=== PATIENT | female | born 1990 | race Caucasian/White ===

== ENCOUNTER → 2017-05-25 14:34 | Outpatient (CLI) | payer BC, SELFPAY | PROVIDERS: Visit Provider Nurse Practitioner Women's Health | DX: R30.0 Dysuria (principal) | CPT/HCPCS: 87086; 87088 ==

== ENCOUNTER → 2017-06-13 11:30 | Outpatient (CLI) | payer BC, SELFPAY ==
[2017-06-13 12:44] LABS: Absolute Lymphocyte Count 1.26 X10^3/ul (0.83-4.51); Absolute Neutrophil Count 4.5 X10^3/uL (2.0-7.7); Basophil# 0.02 X10^3/uL; Basophil% 0.3 % (0-1); Eosinophil# 0.19 X10^3/uL; Eosinophils% 2.8 % (0-5); Hematocrit 40.3 % (37-47); Hemoglobin 13.3 g/dl (12.0-15.0); Lymphocyte # 1.26 X10^3/ul (4.0); Lymphocyte % 18.9 % (19-41); Mean Corpuscular Hgb 30.2 pg (27.0-32.0); Mean Corpuscular Volume 91.4 fL (81-99); Mean Platelet Vol. 10.1 fl (6.2-12.0); Monocyte% 10.5 % (0-10); Neutrophil # 4.51 X10^3/uL (2.7-7.7); Neutrophil % 67.5 % (47-70); Platelet Count 280 K/mm3 (150-450); RBC Distribution Width CV 11.9 % (11.6-14.6); RBC Distribution Width SD 40.3 fl (35.1-43.9); Red Blood Count 4.41 M/mm3 (4.2-5.4); White Blood Count 6.7 K/mm3 (4.4-11.0)
[2017-06-13 13:15] LABS: Thyroid Stim Hormone (TSH) 1.23 uIU/mL (0.358-3.74)
[2017-06-13 13:16] LABS: POSITIVE COUNT NO; POSITIVE DIFFERENTIAL NO; POSITIVE MORPHOLOGY NO
== END ==
PROVIDERS: Family Provider Family Medicine; PCP Family Medicine; Visit Provider Nurse Practitioner Women's Health
DX: R53.83 Other fatigue (principal)
CPT/HCPCS: 36415; 84439; 84443; 85025

== ENCOUNTER → 2018-05-05 08:31 | Outpatient (CLI) | payer OTHER, SELFPAY ==
[2018-05-04 17:43] VITALS: BMI 21.1
[2018-05-05 09:44] LABS: Anion Gap 7 (5-15); BUN 7 mg/dL (7-18); BUN/Creat Ratio 8.6 RATIO (10-20); Calcium,Total 8.8 mg/dL (8.5-10.1); Chloride 106 mmol/L (98-107); Cholesterol 165 mg/dL (200); Creatinine, Serum 0.81 mg/dL (0.55-1.02); EST Glomerular Filtration Rate 90 mL/min (>60); Est Glom Filt Rate - Afr Amer 109 mL/min (>60); Glucose 79 mg/dL (74-106); High Density Lipoprotein 74 mg/dL; Sodium Level 141 mmol/L (136-145); Triglycerides 105 mg/dL; Very Low Density Lipoprotein 21 mg/dL (5-40)
== END ==
PROVIDERS: Family Provider Internal Medicine; PCP Internal Medicine; Referring Provider Internal Medicine; Visit Provider Internal Medicine
DX: Z00.00 Encounter for general adult medical examination without abnormal findings (principal)
CPT/HCPCS: 36415; 80048; 80061

== ENCOUNTER → 2019-10-02 14:27 | Outpatient (CLI) | payer OTHER, SELFPAY ==
[2019-07-18 16:58] VITALS: BMI 20.7
[2019-10-02 14:46] LABS: Absolute Lymphocyte Count 1.73 X10^3/uL (0.83-4.51); Absolute Neutrophil Count 6.4 X10^3/uL (2.0-7.7); Basophil# 0.04 X10^3/uL; Basophil% 0.4 % (0-1); Eosinophil# 0.31 X10^3/uL; Eosinophils% 3.3 % (0-5); Hemoglobin 14.7 g/dL (12.0-15.0); Lymphocyte # 1.73 X10^3/ul (4.0); Lymphocyte % 18.6 % (19-41); Mean Corp Hgb Conc 34.2 g/dL (32-36); Mean Corpuscular Hgb 32.1 pg (27.0-32.0); Mean Corpuscular Volume 93.9 fL (81-99); Mean Platelet Vol. 9.5 fl (6.2-12.0); Monocyte# 0.82 X10^3/uL; Monocyte% 8.8 % (0-10); NRBC Flagged by Analyzer 0 % (0-5); Neutrophil # 6.37 X10^3/uL (2.7-7.7); Neutrophil % 68.6 % (47-70); Platelet Count 307 K/mm3 (150-450); RBC Distribution Width CV 11.2 % (11.6-14.6); RBC Distribution Width SD 38.5 fl (35.1-43.9); Red Blood Count 4.58 M/mm3 (4.2-5.4); White Blood Count 9.3 K/mm3 (4.4-11.0)
[2019-10-02 15:11] LABS: T4 Free Direct 1.08 ng/dL (0.76-1.46)
== END ==
PROVIDERS: PCP Internal Medicine; Referring Provider Obstetrics & Gynecology; Visit Provider Obstetrics & Gynecology
DX: R63.4 Abnormal weight loss (principal); R58 Hemorrhage, not elsewhere classified
CPT/HCPCS: 36415; 84439; 84443; 85025

== ENCOUNTER → 2020-04-29 08:01 | Outpatient (CLI) | payer OTHER, SELFPAY ==
[2019-11-07 17:03] VITALS: BMI 20.7
[2020-04-29 08:30] LABS: AST(SGOT) 10 U/L (15-37); Alanine Aminotransfer ALT/SGPT 16 U/L (13-56); Cholesterol 171 mg/dL (200); High Density Lipoprotein 73 mg/dL; Triglycerides 77 mg/dL; Very Low Density Lipoprotein 15 mg/dL (5-40)
== END ==
PROVIDERS: PCP Internal Medicine; Referring Provider Dermatology; Visit Provider Dermatology
DX: L70.0 Acne vulgaris (principal); Z79.899 Other long term (current) drug therapy
CPT/HCPCS: 36415; 80061; 84450; 84460

== ENCOUNTER 2020-05-15 07:24 | Emergency (ER) | payer OTHER, SELFPAY ==
[2020-05-08 09:01] VITALS: BMI 19.2
[2020-05-15 07:26] VITALS: BP 145/98; PULSE 95; RESP 22; TEMP 36.6; O2SAT 99; BMI 18.8
--- NOTE | 2020-05-15 07:32 | CT_ITS ---
STUDY: CT ABDOMEN AND PELVIS WITHOUT CONTRAST REASON FOR EXAM: Female, 29 years old. Pain. Right flank pain. RADIATION DOSAGE (If Supplied By Facility): CTDIvol = ( 6.08 ) mGy, DLP = ( 251.98 ) mGycm TECHNIQUE: Transaxial images were obtained from the dome of the diaphragm to the symphysis pubis without oral contrast, and without intravenous contrast. Sagittal and coronal images were reconstructed. Individualized dose optimization techniques were used for this CT. COMPARISON: None. FINDINGS: The visualized lung bases are unremarkable. The visualized portions of the heart are within normal limits. Catherine''s lobe of the liver. Normal gallbladder and extrahepatic biliary system. Normal spleen. Normal pancreas. Normal bilateral adrenal glands. Tiny calculus is seen in the posterior upper pole calyx of the right kidney as well as in the inferior pole calyx of the right kidney. Mild degree of the right hydronephrosis. Minimally dilated right ureter. I suspect a 2 mm calculus at the right ureterovesical junction. Normal left kidney. Normal visualized stomach. Normal small intestine. Normal colon. The appendix is visualized and appears normal. Normal abdominal aorta. Normal inferior vena cava. Normal retroperitoneum. Normal urinary bladder. There is a 1.9 cm cyst in the right ovary. Retroverted uterus. Normal abdominal wall. Normal osseous structures. CT/Abdomen/Pelvis without Cont IMPRESSION: Mild degree of right hydronephrosis and right hydroureter due to a 2 mm calculus at the right ureterovesical junction. 1.9 cm cyst in the right ovary. Retroverted uterus. Electronically Signed: Eulogio Christy MD at 8:54 EDT , Service support ,
--- NOTE | 2020-05-15 07:33 | ED.VIS.GEN ---
History of Present Illness Chief Complaint: Flank Pain Narrative: Patient is a 29-year-old female who presents with right flank pain. This began suddenly this morning. Pain is severe. History is limited as patient is in distress, screaming. She states she was fine when she went to sleep last night. When she woke this morning she had severe pain in her right flank with radiation to her right lower abdomen and back. No history of kidney stones. Last menstrual period 1 week ago. She denies vomiting or diarrhea. She does complain of nausea. No dysuria frequency or urgency. Past Medical History - Allergies and Home Meds Allergies/Adverse Reactions: Allergies No Known Allergies Allergy (Verified 05/15/20 07:27) Primary Care Physician: Manas Shaw MD [Primary Care Provider] - Past Medical History: None Surgical History: no surgical history Smoking Status: Never smoker Review of Systems All systems negative except as indicated General: Denies: Fever Eyes: Denies: Visual changes - bilaterally ENT: Denies: Bilateral ear pain Cardiovascular: Denies: Chest pain Respiratory: Denies: Dyspnea Gastrointestinal: Reports: Abdominal pain, Nausea. Denies: Vomiting, Diarrhea Genitourinary: Denies: Dysuria, Hematuria, Frequency Skin: Denies: Rash Neurological: Denies: Headache Allergy: Denies: Uticaria Physical Exam Vital Signs/Narrative: Vital Signs Temp Pulse Resp BP Pulse Ox 05/15/20 07:26 97.8 F 95 22 H 145/98 H 99 Inital Vital Signs reviewed: Yes General: Well nourished, Acute Distress - Patient lying on her side, screaming out Head: Normocephalic Eyes: EOMI ENT: Moist mucous membranes Neck: Supple Cardiovascular: Regular rate, Regular rhythm Respiratory: No distress, CTA bilaterally Abdomen: - - Patient refuses to allow abdominal examination Back: - - Patient cries out in pain when the right CVA was barely palpated Extremities: Nontender Skin: Normal color Neurological: Alert Diagnostic/Tx/Re-eval Impressions Abdomen/Pelvis CT 05/15/20 07:32 IMPRESSION: Mild degree of right hydronephrosis and right hydroureter due to a 2 mm calculus at the right ureterovesical junction. 1.9 cm cyst in the right ovary. Retroverted uterus. Electronically Signed: Eulogio Christy MD at 8:54 EDT , Service support , 05/15/20 07:32 Abdomen/Pelvis without Cont [CT] Stat Laboratory Results 05/15/20 05/15/20 05/15/20 07:35 07:35 07:35 WBC 6.5 RBC 4.66 Hgb 14.6 Hct 41.9 MCV 89.9 MCH 31.3 MCHC 34.8 RDW Std Deviation 37.6 RDW Coeff of John 11.5 L Plt Count 332 MPV 9.4 Immature Gran % (Auto) 0.300 Neut % (Auto) 41.2 L Lymph % (Auto) 38.0 Hardee % (Auto) 13.7 H Eos % (Auto) 6.2 H Baso % (Auto) 0.6 Absolute Neuts (auto) 2.7 Absolute Lymphs (auto) 2.47 Nucleated RBC % 0 Sodium 138 Potassium 2.9 L Chloride 106 Carbon Dioxide 19.0 L Anion Gap 13 BUN 7 Creatinine 1.08 H Estim Creat Clear Calc 61.09 Est GFR (MDRD) Af Amer 77 Est GFR (MDRD) Non-Af 64 BUN/Creatinine Ratio 6.5 L Glucose 128 H Calcium 9.2 Total Bilirubin 0.80 AST 10 L ALT 17 Alkaline Phosphatase 73 Total Protein 7.5 Albumin 4.2 Globulin 3.3 Albumin/Globulin Ratio 1.3 Serum , Qual NEGATIVE Urine Color Urine Clarity Urine pH Ur Specific Calmar Urine Protein Urine Glucose (UA) Urine Ketones Urine Occult Blood Urine Nitrite Urine Bilirubin Urine Urobilinogen Ur Leukocyte Esterase Urine RBC Urine WBC Ur Squamous Epith Cells Urine Bacteria Urine Mucus 05/15/20 09:04 WBC RBC Hgb Hct MCV MCH MCHC RDW Std Deviation RDW Coeff of John Plt Count MPV Immature Gran % (Auto) Neut % (Auto) Lymph % (Auto) Hardee % (Auto) Eos % (Auto) Baso % (Auto) Absolute Neuts (auto) Absolute Lymphs (auto) Nucleated RBC % Sodium Potassium Chloride Carbon Dioxide Anion Gap BUN Creatinine Estim Creat Clear Calc Est GFR (MDRD) Af Amer Est GFR (MDRD) Non-Af BUN/Creatinine Ratio Glucose Calcium Total Bilirubin AST ALT Alkaline Phosphatase Total Protein Albumin Globulin Albumin/Globulin Ratio Serum , Qual Urine Color Yellow Urine Clarity Sl. Cloudy Urine pH 6.5 Ur Specific Calmar 1.015 Urine Protein Negative Urine Glucose (UA) Normal Urine Ketones 50 H Urine Occult Blood 250 H Urine Nitrite Negative Urine Bilirubin Negative Urine Urobilinogen Normal Ur Leukocyte Esterase Negative Urine RBC 25-50 SEEN Urine WBC 0 SEEN Ur Squamous Epith Cells 0-5 SEEN Urine Bacteria 0 SEEN Urine Mucus 1+ - Medical Decision Making Patient was treated with IV fluids, Toradol, Zofran. Patient reported only mild improvement of pain. She was given IV morphine. On reevaluation she reports marked improvement and is resting comfortably. Labs are notable for hypokalemia with a potassium of 2.9. Urinalysis shows blood otherwise normal. CT does show 2 mm right UVJ calculus. I discussed expectant management with the patient. She was referred to urology for outpatient follow-up and discharged with prescriptions for Flomax and Percocet. She does understand return for new or worsening symptoms and was advised on signs and symptoms to monitor for. ED Disposition - Plan for ED Patient: Disposition: Home or Assisted Living Diagnosis: Hypokalemia, Ureteral calculus Instructions: ED Kidney Stone w/ Colic, ED Hypokalemia Prescriptions: Tamsulosin HCl [Flomax] 0.4 mg PO DAILY #7 capsule Prescription Printed Oxycodone HCl/Acetaminophen [Percocet 5/325] 1 tablet PO Q6H PRN PRN 3 Days #12 tab PRN Reason: Pain Prescription Printed Referrals: Manas Shaw MD [Primary Care Provider] -
[2020-05-15] MEDS: 0.9% Normal Saline 1,000 ML 1000 ML IV (07:40)
[2020-05-15] MEDS: Ketorolac 30 MG/ML Syringe IV (07:40)
[2020-05-15] MEDS: Ondansetron 4 MG/2 ML Vial IV (07:41)
[2020-05-15 07:43] LABS: Absolute Lymphocyte Count 2.47 X10^3/uL (0.83-4.51); Absolute Neutrophil Count 2.7 X10^3/uL (2.0-7.7); Basophil# 0.04 X10^3/uL; Basophil% 0.6 % (0-1); Eosinophils% 6.2 % (0-5); Hematocrit 41.9 % (37-47); Hemoglobin 14.6 g/dL (12.0-15.0); Lymphocyte # 2.47 X10^3/ul (4.0); Mean Corp Hgb Conc 34.8 g/dL (32-36); Mean Corpuscular Hgb 31.3 pg (27.0-32.0); Mean Corpuscular Volume 89.9 fL (81-99); Mean Platelet Vol. 9.4 fl (6.2-12.0); Monocyte# 0.89 X10^3/uL; Monocyte% 13.7 % (0-10); NRBC Flagged by Analyzer 0 % (0-5); Neutrophil # 2.68 X10^3/uL (2.7-7.7); Neutrophil % 41.2 % (47-70); Platelet Count 332 K/mm3 (150-450); RBC Distribution Width CV 11.5 % (11.6-14.6); RBC Distribution Width SD 37.6 fl (35.1-43.9); Red Blood Count 4.66 M/mm3 (4.2-5.4); White Blood Count 6.5 K/mm3 (4.4-11.0)
[2020-05-15 07:58] LABS: ALB/GLOB Ratio 1.3 RATIO (0.9-2.4); AST(SGOT) 10 U/L (15-37); Alanine Aminotransfer ALT/SGPT 17 U/L (13-56); Albumin, Serum 4.2 g/dL (3.2-5.0); Alkaline Phosphatase 73 U/L (45-117); Anion Gap 13 (5-15); BUN 7 mg/dL (7-18); BUN/Creat Ratio 6.5 RATIO (10-20); Calcium,Total 9.2 mg/dL (8.5-10.1); Chloride 106 mmol/L (98-107); Creatinine, Serum 1.08 mg/dL (0.55-1.02); EST Glomerular Filtration Rate 64 mL/min (>60); Est Glom Filt Rate - Afr Amer 77 mL/min (>60); Estimated Creatinine Clearance 61.09 ml/min; Globulin 3.3 g/dL (2.2-4.2); Glucose 128 mg/dL (74-106); Potassium 2.9 mmol/L (3.5-5.1); Protein, Total 7.5 g/dL (6.4-8.2); Sodium Level 138 mmol/L (136-145)
[2020-05-15 08:03] LABS: Internal QC Validated? YES +Cl - CLEAR BKGD; Pregnancy, Serum, hCG Quali. NEGATIVE Negative
[2020-05-15] MEDS: Morphine 4 MG/ML Syringe IV (08:49)
[2020-05-15] MEDS: Potassium Chloride 10mEq/100mL 10 MEQ/100 ML IV.SOLN. 100 MEQ IV BOLUS ×4 (09:01→11:07)
[2020-05-15 09:11] LABS: Bacteria 0 SEEN /hpf (None Seen); White Blood Cells 0 SEEN /hpf (0-5)
[2020-05-15 09:15] LABS: Color, Urine Yellow (Yellow); Glucose, Dipstick Normal (Normal); Ketone-Dipstick 50 mg/dl (Negative); Leukocyte Esterase-Dipstick Negative /ul (Negative); Nitrite-Dipstick Negative (Negative); Occult Blood-Urine 250 /ul (Negative); Protein-Dipstick Negative (Negative); Specific Gravity, Urine 1.015 (1.002-1.030); Urine Bilirubin Dipstick Negative (Negative); Urine Clarity Sl. Cloudy (Clear); Urine Urobilinogen Normal (Normal); Urine pH 6.5 (5.0 - 8.0)
[2020-05-15 09:22] LABS: Mucous, Urine 1+ /hpf (<or=2+); Red Blood Cells-Urine 25-50 SEEN /hpf (0-5); Squamous Epithelial Cells - UA 0-5 SEEN /hpf (5-10)
[2020-05-15 10:09] VITALS: BP 129/84; PULSE 71; RESP 15; TEMP 36.4; O2SAT 99
[2020-05-15 12:00] VITALS: BP 123/69; PULSE 71; RESP 15; O2SAT 98
== END 2020-05-15 12:03 | disposition home or self-care (01) ==
PROVIDERS: Emergency Provider Emergency Medicine; PCP Internal Medicine
DX: N13.2 Hydronephrosis with renal and ureteral calculous obstruction (principal); E87.6 Hypokalemia; N83.201 Unspecified ovarian cyst, right side; N85.4 Malposition of uterus
CPT/HCPCS: 74176; 80053; 81001; 84703; 85025; 96361; 96374; 96375; 99283; J7030; A4216; J2405

== ENCOUNTER → 2020-05-20 13:32 | Outpatient (CLI) | payer OTHER, SELFPAY ==
[2020-05-20 13:04] VITALS: BMI 19.0
[2020-05-20 13:33] LABS: Bacteria 0 SEEN /hpf (None Seen); Mucous, Urine 0 SEEN /hpf (<or=2+); Red Blood Cells-Urine 0 SEEN /hpf (0-5); Squamous Epithelial Cells - UA 0 SEEN /hpf (5-10); White Blood Cells 0 SEEN /hpf (0-5)
[2020-05-20 15:37] LABS: Color, Urine Yellow (Yellow); Glucose, Dipstick Normal (Normal); Ketone-Dipstick Negative (Negative); Leukocyte Esterase-Dipstick Negative /ul (Negative); Nitrite-Dipstick Negative (Negative); Occult Blood-Urine Negative /ul (Negative); Protein-Dipstick Negative (Negative); Urine Bilirubin Dipstick Negative (Negative); Urine Clarity Clear (Clear); Urine Urobilinogen Normal (Normal)
[2020-05-20 15:42] LABS: Anion Gap 4 (5-15); BUN 10 mg/dL (7-18); BUN/Creat Ratio 12.9 RATIO (10-20); Calcium,Total 9.6 mg/dL (8.5-10.1); Chloride 108 mmol/L (98-107); Creatinine, Serum 0.78 mg/dL (0.55-1.02); EST Glomerular Filtration Rate 94 mL/min (>60); Est Glom Filt Rate - Afr Amer 113 mL/min (>60); Glucose 67 mg/dL (74-106); Potassium 4.6 mmol/L (3.5-5.1); Sodium Level 139 mmol/L (136-145)
== END ==
PROVIDERS: PCP Internal Medicine; Referring Provider Nurse Practitioner Family; Visit Provider Nurse Practitioner Family
DX: N20.0 Calculus of kidney (principal); E87.6 Hypokalemia
CPT/HCPCS: 36415; 80048; 81001

== ENCOUNTER → 2020-06-13 12:58 | Outpatient (CLI) | payer OTHER, SELFPAY ==
[2020-06-04 13:14] VITALS: BMI 18.8
[2020-06-13 13:28] LABS: Anion Gap 2 (5-15); BUN 11 mg/dL (7-18); BUN/Creat Ratio 15.6 RATIO (10-20); Calcium,Total 9.1 mg/dL (8.5-10.1); Chloride 106 mmol/L (98-107); EST Glomerular Filtration Rate 105 mL/min (>60); Est Glom Filt Rate - Afr Amer 127 mL/min (>60); Glucose 69 mg/dL (74-106); Sodium Level 137 mmol/L (136-145)
[2020-06-13 20:46] LABS: Magnesium 2.1 mg/dL (1.6-2.6)
== END ==
PROVIDERS: PCP Internal Medicine; Referring Provider Nurse Practitioner Family; Visit Provider Nurse Practitioner Family
DX: R42 Dizziness and giddiness (principal); E87.6 Hypokalemia
CPT/HCPCS: 36415; 80048; 83735

== ENCOUNTER → 2020-09-11 08:07 | Outpatient (CLI) | payer OTHER, SELFPAY ==
[2020-08-07 17:07] VITALS: BMI 18.8
[2020-09-11 08:43] LABS: AST(SGOT) 16 U/L (15-37); Alanine Aminotransfer ALT/SGPT 21 U/L (13-56); Cholesterol 177 mg/dL (200); High Density Lipoprotein 66 mg/dL; Triglycerides 95 mg/dL; Very Low Density Lipoprotein 19 mg/dL (5-40)
== END ==
PROVIDERS: PCP Internal Medicine; Referring Provider Dermatology; Visit Provider Dermatology
DX: L70.0 Acne vulgaris (principal); L23.3 Allergic contact dermatitis due to drugs in contact with skin; Z79.899 Other long term (current) drug therapy
CPT/HCPCS: 36415; 80061; 84450; 84460

== ENCOUNTER → 2020-10-01 16:31 | Outpatient (CLI) | payer OTHER, SELFPAY ==
[2020-10-09 08:58] LABS: HPV APTIMA, High Risk Positive (Negative)
[2020-10-09 08:59] LABS: HPV Reflexed? YES, CHARGE PATIENT
== END ==
PROVIDERS: PCP Internal Medicine; Referring Provider Nurse Practitioner Women's Health; Visit Provider Nurse Practitioner Women's Health
DX: Z12.4 Encounter for screening for malignant neoplasm of cervix (principal)
CPT/HCPCS: 87624; 88175; G0145

== ENCOUNTER → 2020-12-15 | Outpatient (CLI) | payer OTHER, SELFPAY | END | disposition home or self-care (01) | LOC: LABSPEC 08:45 | PROVIDERS: PCP Internal Medicine; Referring Provider Obstetrics & Gynecology; Visit Provider Obstetrics & Gynecology | DX: J02.9 Acute pharyngitis, unspecified (principal) | CPT/HCPCS: 87880 ==

== ENCOUNTER 2021-03-02 11:46 | Outpatient (CLI) | payer OTHER, SELFPAY ==
[2021-03-02 12:26] VITALS: BP 126/76; PULSE 78; RESP 16; TEMP 36.6; O2SAT 98
[2021-03-02 12:26] LABS: Absolute Lymphocyte Count 1.41 X10^3/uL (0.83-4.51); Absolute Neutrophil Count 10.7 X10^3/uL (2.0-7.7); Basophil# 0.04 X10^3/uL; Basophil% 0.3 % (0-1); Eosinophil# 0.03 X10^3/uL; Eosinophils% 0.2 % (0-5); Hematocrit 38.8 % (37-47); Hemoglobin 13.7 g/dL (12.0-15.0); Lymphocyte # 1.41 X10^3/ul (0.83-4.51); Lymphocyte % 10.7 % (19-41); Mean Corp Hgb Conc 35.3 g/dL (32-36); Mean Corpuscular Hgb 31.8 pg (27.0-32.0); Mean Platelet Vol. 8.9 fl (6.2-12.0); Monocyte# 0.96 X10^3/uL; Monocyte% 7.3 % (0-10); NRBC Flagged by Analyzer 0 % (0-5); Neutrophil # 10.72 X10^3/uL (2.7-7.7); Platelet Count 442 K/mm3 (150-450); RBC Distribution Width CV 11.3 % (11.6-14.6); RBC Distribution Width SD 37.2 fl (35.1-43.9); Red Blood Count 4.31 M/mm3 (4.2-5.4); White Blood Count 13.2 K/mm3 (4.4-11.0)
[2021-03-02] MEDS: Dextrose 5%-Lactated Ringers 1,000 ML 999 ML IV (12:36)
[2021-03-02 12:53] LABS: ALB/GLOB Ratio 0.9 RATIO (0.9-2.4); AST(SGOT) 25 U/L (15-37); Alanine Aminotransfer ALT/SGPT 24 U/L (13-56); Albumin, Serum 3.8 g/dL (3.2-5.0); Alkaline Phosphatase 97 U/L (45-117); Anion Gap 9 (5-15); BUN 9 mg/dL (7-18); BUN/Creat Ratio 11.2 RATIO (10-20); Calcium,Total 9.8 mg/dL (8.5-10.1); Chloride 104 mmol/L (98-107); EST Glomerular Filtration Rate 89 mL/min (>60); Est Glom Filt Rate - Afr Amer 108 mL/min (>60); Estimated Creatinine Clearance 86.93 ml/min; Globulin 4.4 g/dL (2.2-4.2); Glucose 98 mg/dL (74-106); Protein, Total 8.2 g/dL (6.4-8.2); Sodium Level 138 mmol/L (136-145)
== END 2021-03-02 23:59 | disposition short-term general hospital (02) ==
LOC: MEDOUTP 11:46
PROVIDERS: PCP Internal Medicine; Referring Provider Obstetrics & Gynecology; Visit Provider Obstetrics & Gynecology
DX: E86.0 Dehydration (principal)
CPT/HCPCS: 96360; 80053; 85025; A4216

== ENCOUNTER 2021-03-20 11:38 | Outpatient (CLI) | payer OTHER, SELFPAY ==
--- NOTE | 2021-03-20 11:41 | RAD_ITS ---
STUDY: X-RAY CHEST REASON FOR EXAM: Female, 30 years old. Persistent cough TECHNIQUE: PA and lateral views of the chest. COMPARISON: Comparison is made with prior examination dated 03/03/2021. FINDINGS: Hyperinflation. Scattered calcified granulomas. No acute abnormality is seen. There is no demonstrated pleural abnormality. Normal size heart. Normal mediastinum and hood. Normal visualized pulmonary arteries. Normal visualized aortic arch and descending thoracic aorta. Normal visualized thoracic spine. Normal visualized ribs, clavicles, and shoulders. There is no demonstrated abnormality of the visualized soft tissue structures of the upper abdomen. RAD/Chest PA and Lateral IMPRESSION: Hyperinflation. Scattered calcified granulomas. The lungs are clear. Electronically Signed: Eulogio Christy MD at 12:27 EST ,
== END 2021-03-20 23:59 | disposition home or self-care (01) ==
PROVIDERS: PCP Nurse Practitioner Family; Referring Provider Obstetrics & Gynecology; Visit Provider Obstetrics & Gynecology
DX: R05.3 Chronic cough (principal)
CPT/HCPCS: 71046

== ENCOUNTER 2021-08-19 05:28 | Day surgery (SDC) | payer OTHER, SELFPAY ==
[2021-08-19] MEDS: Lactated Ringers 1,000 ML 15 ML IV (06:00)
[2021-08-19 06:11] VITALS: BP 118/75; PULSE 68; RESP 18; TEMP 36.5; O2SAT 97; BMI 23.1
[2021-08-19 06:16] LABS: Internal QC Validated? YES +Cl - CLEAR BKGD; Pregnancy, Urine Negative Negative
--- NOTE | 2021-08-19 06:30 | EGD_PTH ---
PATIENT: JANES GONZÁLES LOC: EN U#:[id number] AGE/SX: 30/F ROOM: RE08/19/[address]: Dr. Jam Gonzales DO : 1990 BED: DIS: 08/19/2021 SPEC #: [id number] RECD: 08/19/21 10:52 STATUS: ESME CANDI #: [id number] BENJA: 08/19/21 06:[address]: Jam Gonzales DEPT: SURGICAL PATHOLOGY RECD BY: Catia Moreau ENTERED: 08/19/21 12:12 SP TYPE: EGD BIOPSY OT DR: Talon Ray, TRACTOR OPERATOR BATTERY-C Tissues: A - Esophagus, NOS B - Esophagus, NOS Procedures: Special Stain Group II Surgery Specimen Level IV Alcian Blue/PAS (control) HEADER OPERATION: EGD ([facility]) with PH probe PRE-OP DIAGNOSIS: GERD TISSUE SUBMITTED: A ? Distal esophagus biopsy, B ? Distal esophagus polyp biopsy MICROSCOPIC DIAGNOSIS A. Distal esophagus, biopsy: Fragments of gastroesophageal mucosa with chronic inflammation. Intestinal metaplasia (goblet cell metaplasia) not identified. See comment. B. Distal esophagus polyp, biopsy: A fragment of gastric mucosa with mild chronic inflammation. Intestinal metaplasia (goblet cell metaplasia) not identified. See comment. SJ:rogerio 08/20/2021 COMMENT A & B. Alcian blue/PAS stain with matched control is used in the evaluation of the specimen. MICROSCOPIC DESCRIPTION Slides are reviewed. GROSS DESCRIPTION A - Received in fixative is one container labeled with the patient's name and designated distal esophagus biopsy. The specimen consists of two irregular fragments of light madera soft tissue that in aggregate measure 0.6 x 0.6 x 0.1 cm. The specimen is totally submitted in one cassette. B - Received in fixative is one container labeled with the patient's name and designated distal esophagus polyp biopsy. The specimen consists of one irregular fragment of light madera soft tissue that measures 0.6 x 0.2 x 0.1 cm. The specimen is totally submitted in one cassette. / AM:rogeroi 08/19/2021 TC:3 CPT: 15610 x2, 75095 x2
--- NOTE | 2021-08-19 06:39 | PCM.HP.BLA ---
History and Physical Date of Admission: 08/19/21 LUKASZ GONZÁLES, is a 30 F who?presents to the office today to establish with the practice following ESOGUARD screening that was done 05.25.21. Results from the ESOGUARD were unevaluable? Pt has had issues with heartburn and acid reflux for 4 years now that has gotten worse over the past 2 years. Pt started on Protonix 40mg a month ago and has found no relief of her symptoms. Is now currently taking Pepcid 100mg everyday.? Pt reports having some nausea at least 2 days a week with no vomiting. BM's are consistent, formed and she going at least once a day. Reports no difficulty swallowing, abdominal pain, bloody or dark stools.? Pt does have a family history of choudhary?s esophagus including her grandmother. ROS Const Constitutional: No fatigue ENT ENT: No difficulty swallowing Gastro GI: Positive for abdominal pain, bloating, diarrhea, excessive flatus and nausea/dyspepsia; No belching, change in bowel habits, change in stool character, coffee ground emesis, constipation, cramping, heartburn, difficulty swallowing, feeling full early, incontinent of stools, Vomiting blood/hematemesis, Blood in stool, loose stools, Black,tarry stools, pain with swallowing, vomiting or other Musc Musculoskeletal: Positive for restless legs; No joint pain Skin Skin: No yellowing of the eye or itchy eyes Neuro Neurology: Positive for restless legs Psych Psychiatric: No anxiety and No depression Endo Endocrine: No fatigue Aller/Imm Allergy/Immunologic: No itchy eyes Diego/Lymp Hematologic/Lymphatic: No easy bleeding or easy bruising Exam Const General: cooperative and comfortable Nutritional Appearance: average body habitus and well nourished [facility] Head: normal to inspection Ears: hearing grossly normal bilaterally Nose: external nose normal Face and sinus: normal facial exam Mouth: oral mucosae normal Throat: posterior oropharynx normal Eyes General: appearance normal, both eyes and all related structures Neck Neck: normal visual inspection Chest Chest palpation & inspection: normal inspection of the chest and normal palpation of entire chest wall Resp Effort & Inspection: normal respiratory effort Auscultation: Bilateral: Clear to Auscultation Cardio Palpation: normal PMI Rate: regular rate Rhythm: regular rhythm GI Inspection: normal to inspection Auscultation: normal bowel sounds Percussion: normal to percussion Palpation: no hepatosplenomegaly Skin General: no rashes or lesions noted Neuro General: patient alert Extrem General: normal to inspection Psych Affect: normal affect Quality Reporting Tobacco Screening ([facility] 138) Smoking Status: Never smoker Assessment and Plan Assessment and Plan (1) GERD (gastroesophageal reflux disease): ?Status:?Acute ?Plan: She has had gastroesophageal reflux disease for multiple years.? She did go easel guard test and it was inconclusive.? She will need to undergo an upper endoscopy to evaluate upper GI tract.? A lot of her symptoms sound as if she has a lower esophageal sphincter relaxation versus hiatal hernia.? Her symptoms also sound like she has possible underlying gastroparesis and/or bile reflux esophagitis.? I will put her on Dexilant therapy which is 40 mg omeprazole +20 mg of sodium bicarbonate.? She will stop the Protonix and hopefully be able to stop the famotidine and Tums.? She may need a reflex tachycardia gastric is secondary to taken 100 mg of H2 receptor roger per day.? Other test we will order our a gastric emptying study and a HIDA scan to see if he has any bile reflux. ? ? ? Medications: New dexlansoprazole (Dexilant) 60 mg? PO DAILY 30 days 30 caps 2RF ? ? I have re-examined the patient. There are no clinical changes since date of exam.
[2021-08-19 06:59] VITALS: BP 116/82; BP 118/75; PULSE 78; RESP 14; TEMP 36.4; O2SAT 96
--- NOTE | 2021-08-19 06:59 | OP.EGD_ITS ---
Patient Name: Dominga Gonzalez Procedure Date: 08/19/2021 6:20 AM Date of : 1990 Age: 30 Procedure: Upper GI endoscopy Indications: Heartburn, Esophageal reflux Providers: Jam Gonzales DO Medicines: Monitored Anesthesia Care Patient Profile: This is a 30 year old female. Refer to note in patient chart for documentation of history and physical. Patient has symptoms of chronic chest pain. Complications: No immediate complications. Procedure: Pre-Anesthesia Assessment: - Prior to the procedure, a History and Physical was performed, and patient medications and allergies were reviewed. The risks and benefits of the procedure and the sedation options and risks were discussed with the patient. All questions were answered and informed consent was obtained. Patient identification and proposed procedure were verified by the physician in the pre-procedure area. Mental Status Examination: alert and oriented. Airway Examination: normal oropharyngeal airway and neck mobility. Respiratory Examination: clear to auscultation. CV Examination: normal. Prophylactic Antibiotics: The patient does not require prophylactic antibiotics. Prior Anticoagulants: The patient has taken no previous anticoagulant or antiplatelet agents. After reviewing the risks and benefits, the patient was deemed in satisfactory condition to undergo the procedure. The anesthesia plan was to use moderate sedation / analgesia (conscious sedation). Immediately prior to administration of medications, the patient was re-assessed for adequacy to receive sedatives. The heart rate, respiratory rate, oxygen saturations, blood pressure, adequacy of pulmonary ventilation, and response to care were monitored throughout the procedure. The physical status of the patient was re-assessed after the procedure. After obtaining informed consent, the endoscope was passed under direct vision. Throughout the procedure, the patient's blood pressure, pulse, and oxygen saturations were monitored continuously. The Endoscope was introduced through the mouth, and advanced to the second part of duodenum. The upper GI endoscopy was accomplished without difficulty. The patient tolerated the procedure well. Scope In: 6:45:18 AM Scope Out: 6:53:21 AM Total Procedure Duration Time 0 hours 8 minutes 3 seconds Findings: The Z-line was irregular and was found 38 cm from the incisors. Biopsies were taken with a cold forceps for histology. Verification of patient identification for the specimen was done. Estimated blood loss was minimal. The PLUNKETT capsule with delivery system was introduced through the mouth and advanced into the esophagus, such that the PLUNKETT pH capsule was positioned 38 cm from the incisors, which was 6 cm proximal to the GE junction. Suction was applied to the well of the PLUNKETT pH capsule to suck in the adjacent mucosa of the esophagus using the external vacuum pump set at a minimum vacuum pressure of 550 mmHg for 30 seconds. The PLUNKETT pH capsule was then deployed by depressing the plunger on top of the handle to advance the locking pin into the mucosa, thereby attaching the capsule to the esophagus. The plunger was then rotated a quarter turn clockwise to release the capsule from the delivery system. The delivery system was then withdrawn. Endoscopy was utilized for probe placement and diagnostic evaluation. A single 5 mm sessile polyp with no stigmata of recent bleeding was found in the gastric fundus. The polyp was removed with a cold snare. Resection and retrieval were complete. Verification of patient identification for the specimen was done. Estimated blood loss was minimal. The first portion of the duodenum was normal. Impression: - Z-line irregular, 38 cm from the incisors. Biopsied. - A single gastric polyp. Resected and retrieved. - Normal first portion of the duodenum. - The PLUNKETT pH capsule was positioned 38 cm from the incisors, which was 6 cm proximal to the GE junction. Recommendation: - Discharge patient to home. - Resume previous diet. - Continue present medications. - Await pathology results. Procedure Code(s): --- Professional --- 63011, Esophagogastroduodenoscopy, flexible, transoral; with removal of tumor(s), polyp(s), or other lesion(s) by snare technique 09584, 59,51, Esophagogastroduodenoscopy, flexible, transoral; with biopsy, single or multiple CPT copyright 2017 [employer]. All rights reserved. The codes documented in this report are preliminary and upon assembly member review may be revised to meet current compliance requirements. Jam Gonzales DO 08/19/2021 6:59:17 AM This report has been signed electronically. Number of Addenda: 1 Note Initiated On: 08/19/2021 6:20 AM Addendum Number: 1 Addendum Date: 11/18/2021 6:30:53 AM MAC was used as sedation for this procedure. Jam Gonzales DO 11/18/2021 6:30:56 AM This report has been signed electronically.
--- NOTE | 2021-08-19 07:00 | OP.CCLET_ITS ---
11/18/2021 Talon Ray, TC [address] [place] [address] [place] [address] Re : Upper GI endoscopy procedure for Dominga Gonzalez Dear Mr. Ray This procedure was performed on Thursday, August 19, 2021. My impressions and recommendations are as follows: Impressions : - Z-line irregular, 38 cm from the incisors. Biopsied. - A single gastric polyp. Resected and retrieved. - Normal first portion of the duodenum. - The PLUNKETT pH capsule was positioned 38 cm from the incisors, which was 6 cm proximal to the GE junction. Recommendations : - Discharge patient to home. - Resume previous diet. - Continue present medications. - Await pathology results. My findings are described in the full procedure note, which is enclosed. If I can be of further assistance, please feel free to contact me at . Sincerely, Jam Gonzales, 08/19/2021 6:59:17 AM This report has been signed electronically.
[2021-08-19 07:05] VITALS: BP 113/74; BP 118/75; PULSE 81; RESP 14; O2SAT 100
[2021-08-19 07:10] VITALS: BP 109/74; BP 118/75; PULSE 64; RESP 14; O2SAT 100
[2021-08-19 07:14] VITALS: BP 103/63; BP 118/75; PULSE 62; RESP 14; TEMP 36.3; O2SAT 100
[2021-08-19] MEDS: Mag Hydrox/Al Hydrox/Simeth 30 ML UDC PO (07:38)
[2021-08-19 07:50] VITALS: BP 118/75
--- NOTE | 2021-09-01 12:56 | HP.PCM_ITS ---
History and Physical Date of Admission: 08/19/21 Study: 48-hour?Alejandre?pH capsule was placed on esophagus during EGD on 08/19/21 ? Indications for?Alejandre?pH Study: heartburn and acid reflux not controlled with pantoprazole 40 mg, switched to H2 roger ? Study Findings?? ? 48-hour overview: reflux upright>supine; noted regurgitation ? Using data from the worst of the two days, acid exposure time is 14.5%.?Percent acid exposure time?is the single parameter which has been shown to best laron elate with endoscopic damage. Normal is <4.4% on the worst day, therefore this result is abnormal.? ? The?DeMeester Score?(normal is <14.72) on the worst of the two days is 44.5 which is abnormal.?The DeMeester Score is a method of adding weights to six common pH measurement parameters, and presenting esophageal acid exposure data as a cumulative score.? ? Symptom Index (SI)?>50% is significant (it indicates that >50% of the observed symptoms were associated with reflux).? In this study, the SI is 61.5% which?is significant. ? Symptom Association Probability (SAP)?helps to determine if there is a true correlation between symptoms and reflux. SAP >95% indicates a likely correlation.? In this study, the SAP is 100% which?does indicate a true correlation.? ? Interpretation ? Abnormal. Acid reflux occurred both supine and upright. Both 24-hr periods were abnormal. Percent acid exposure time and DeMeester scores were abnormal. The symptom index was significant and the symptom association probability indicates a true correlation between regurgitation and reflux.
== END 2021-08-19 07:56 | disposition home or self-care (01) ==
LOC: EN 05:28 → AC 05:30
PROVIDERS: Anesthesiology; PCP Nurse Practitioner Family; Referring Provider Nurse Practitioner Family; Visit Provider Internal Medicine Gastroenterology
PROC: 0DJ08ZZ Inspection of Upper Intestinal Tract, Via Natural or Artificial Opening Endoscopic (ICD-10-PCS; CPT 43235; principal; 2021-08-19 06:25)
DX: K31.7 Polyp of stomach and duodenum (principal); K21.9 Gastro-esophageal reflux disease without esophagitis; F41.9 Anxiety disorder, unspecified; J45.909 Unspecified asthma, uncomplicated; I34.1 Nonrheumatic mitral (valve) prolapse; Z86.16 Personal history of COVID-19; G25.81 Restless legs syndrome; Z79.899 Other long term (current) drug therapy
CPT/HCPCS: 43239; 43251; 81025; 88305; 88313; J7120; J2405

== ENCOUNTER → 2021-09-01 | Outpatient (CLI) | payer OTHER, SELFPAY ==
[2021-09-01 16:07] LABS: D-Dimer Quantitative (DVT/PE) < 0.27 FEU/ug/m (0.27-0.49)
== END | disposition home or self-care (01) ==
LOC: PAVLAB 13:58
PROVIDERS: PCP Nurse Practitioner Family; Referring Provider Obstetrics & Gynecology; Visit Provider Obstetrics & Gynecology
DX: R07.9 Chest pain, unspecified (principal)
CPT/HCPCS: 36415; 85379

== ENCOUNTER → 2021-09-30 | Outpatient (CLI) | payer OTHER, SELFPAY ==
--- NOTE | 2021-09-30 12:46 | VDLE_ITS ---
Reason For Study: Pain RIGHT GSV is normal. CFV is compressible, spontaneous, phasic, competent and demonstrates normal augmentation. FV is compressible, spontaneous, phasic, competent and demonstrates normal augmentation. POP V is compressible, spontaneous, phasic, competent and demonstrates normal augmentation. T/P Trunk is compressible. PTV is compressible. RT PerV is compressible. Procedure This is a venous duplex using B-mode, color flow and spectral Doppler. Exam performed in department. A preliminary report was called and/or faxed to Marija. VL/Venous Duplex US, Unilateral Interpretation Summary There is no evidence of right lower extremity deep vein thrombosis. Right great saphenous vein appears patent and compressible segmentally. Ordering Physician: Ashley Dutton Referring Physician: Talon Ray Performed By: Orly Vuong RVT
== END | disposition home or self-care (01) ==
LOC: CVS 12:45
PROVIDERS: PCP Nurse Practitioner Family; Referring Provider Nurse Practitioner Women's Health; Visit Provider Nurse Practitioner Women's Health
DX: M79.661 Pain in right lower leg (principal)
CPT/HCPCS: 93971

== ENCOUNTER → 2021-10-14 | Outpatient (CLI) | payer OTHER, SELFPAY ==
--- NOTE | 2021-10-14 12:00 | NM_ITS ---
CLINICAL: 30-year-old female with clinical gastroparesis. SEMI-SOLID PHASE 99m Tc SULFUR COLLOID GASTRIC EMPTYING STUDY COMPARISON: None available FINDINGS: The patient was administered 1.1 mCi of 99m Tc sulfur colloid mixed with oatmeal and consumed per os. Image acquisitions in the anterior-posterior projections were obtained for 60 minutes. There is prompt visualization of the stomach. There is no gastroesophageal reflux identified. The T ? emptying was calculated to be 29.61 minutes, (Normal: 12-56 minutes). NM/Gastric Emptying Study IMPRESSION: 1. NORMAL 99m Tc sulfur colloid semi-solid phase (oatmeal) gastric emptying imaging examination. A. There is normal and preserved semi-solid phase gastric emptying compared to normal controls. (Indra et al, J Nucl Med Tech 38: 186, 2010). Electronically Signed: Hemanth Hu, at 22:49 EDT ,
== END | disposition home or self-care (01) ==
LOC: NM 11:54
PROVIDERS: PCP Nurse Practitioner Family; Visit Provider Nurse Practitioner Adult Health
DX: R11.10 Vomiting, unspecified (principal)
CPT/HCPCS: 78264; A9541

== ENCOUNTER → 2021-10-23 | Outpatient (CLI) | payer OTHER, SELFPAY ==
--- NOTE | 2021-10-23 08:00 | RAD_ITS ---
STUDY: X-RAY - ESOPHAGUS (BARIUM SWALLOW) WITH FLUOROSCOPY REASON FOR EXAM: Female, 30 years old. Regurgitation TECHNIQUE: 21 view(s) of the esophagus were obtained following swallowing of barium. FLUOROSCOPY TIME (if supplied): (38 seconds) minutes/seconds COMPARISON: None. FINDINGS: There is no demonstrated esophageal foreign body. There is no demonstrated stricture or mucosal abnormality. Normal gastroesophageal junction, without a demonstrated hiatal hernia. The patient ingested a 12 mm tablet of barium without any difficulty. Normal visualized aortic arch and descending thoracic aorta. Normal visualized pulmonary parenchyma. Normal visualized osseous structures of the thorax. RAD/Esophagus Dual Contrast IMPRESSION: Normal plain film x-ray examination (barium swallow) of the esophagus. Electronically Signed: Eulogio Christy MD at 8:46 EDT ,
== END | disposition home or self-care (01) ==
LOC: RAD 07:53
PROVIDERS: PCP Nurse Practitioner Family; Referring Provider Nurse Practitioner Adult Health; Visit Provider Nurse Practitioner Adult Health
DX: R11.10 Vomiting, unspecified (principal); K21.9 Gastro-esophageal reflux disease without esophagitis
CPT/HCPCS: 74221

== ENCOUNTER → 2021-12-15 | Outpatient (CLI) | payer OTHER, SELFPAY ==
--- NOTE | 2021-12-15 16:50 | RAD_ITS ---
STUDY: X-RAY CHEST REASON FOR EXAM: Female, 31 years old. Dyspnea on exertion. TECHNIQUE: Frontal and lateral views of the chest. COMPARISON: March 20, 2021. FINDINGS: Stable mild hyperinflation. There is no demonstrated pleural abnormality. Normal size heart. Normal mediastinum and hood. Normal visualized pulmonary arteries. Normal visualized aortic arch and descending thoracic aorta. Normal visualized thoracic spine. Normal visualized ribs, clavicles, and shoulders. There is no demonstrated abnormality of the visualized soft tissue structures of the upper abdomen. RAD/Chest PA and Lateral IMPRESSION: Stable mild hyperinflation. No active or acute cardiopulmonary disease. Electronically Signed: Luciano Seals, at 11:03 EDT ,
[2021-12-15 17:15] LABS: Absolute Lymphocyte Count 1.68 X10^3/uL (0.83-4.51); Absolute Neutrophil Count 4.7 X10^3/uL (2.0-7.7); Basophil# 0.05 X10^3/uL; Basophil% 0.7 % (0-1); Eosinophil# 0.35 X10^3/uL; Eosinophils% 4.6 % (0-5); Hematocrit 39.1 % (37-47); Hemoglobin 13.7 g/dL (12.0-15.0); Lymphocyte # 1.68 X10^3/ul (0.83-4.51); Mean Corpuscular Hgb 31.1 pg (27.0-32.0); Mean Corpuscular Volume 88.9 fL (81-99); Mean Platelet Vol. 9.4 fl (6.2-12.0); Monocyte# 0.82 X10^3/uL; Monocyte% 10.7 % (0-10); NRBC Flagged by Analyzer 0 % (0-5); Neutrophil # 4.73 X10^3/uL (2.7-7.7); Neutrophil % 61.7 % (47-70); Platelet Count 337 K/mm3 (150-450); RBC Distribution Width CV 11.8 % (11.6-14.6); RBC Distribution Width SD 38.2 fl (35.1-43.9); White Blood Count 7.7 K/mm3 (4.4-11.0)
[2021-12-15 17:53] LABS: Anion Gap 6 (5-15); BUN 6 mg/dL (7-18); BUN/Creat Ratio 8.9 RATIO (10-20); Calcium,Total 8.9 mg/dL (8.5-10.1); Chloride 106 mmol/L (98-107); Creatinine, Serum 0.68 mg/dL (0.55-1.02); EST Glomerular Filtration Rate 109 mL/min (>60); Est Glom Filt Rate - Afr Amer 132 mL/min (>60); Glucose 79 mg/dL (74-106); Magnesium 2.2 mg/dL (1.6-2.6); Potassium 3.9 mmol/L (3.5-5.1); Sodium Level 138 mmol/L (136-145); Thyroid Stim Hormone (TSH) 1.44 uIU/mL (0.358-3.74)
== END | disposition home or self-care (01) ==
PROVIDERS: PCP Nurse Practitioner Family; Referring Provider Physician Assistant Medical; Visit Provider Physician Assistant Medical
DX: R07.9 Chest pain, unspecified (principal); R06.09 Other forms of dyspnea; I34.1 Nonrheumatic mitral (valve) prolapse; Q23.1 Congenital insufficiency of aortic valve
CPT/HCPCS: 36415; 71046; 80048; 83735; 84443; 85025

== ENCOUNTER → 2021-12-24 | Outpatient (CLI) | payer OTHER, SELFPAY ==
--- NOTE | 2021-12-24 12:24 | ECHOD_ITS ---
Reason For Study: Dyspnea/SOB Procedure This was a 2D Doppler, Color Flow transthoracic echocardiogram. The exam was of adequate technical quality. Exam performed in department. Left Ventricle Normal LV size. Apical false tendon noted. Left ventricular systolic function is normal. The estimated ejection fraction is 65 %. No evidence for diastolic dysfunction. No regional wall motion abnormalities noted. Right Ventricle Normal RV size. Normal systolic function. Atria Normal left atrium. Normal right atrium. No doppler evidence for ASD. Mitral Valve There is no mitral annular calcification. Equivocal mitral valve prolapse. Mild (1+) mitral valve insufficiency. Tricuspid Valve Normal tricuspid valve. Trivial tricuspid valve insufficiency. Unable to estimate RV systolic pressure due to insufficient tricuspid regurgitant envelope. Aortic Valve Bicuspid aortic valve. Pulmonic Valve The pulmonic valve is not well visualized. Great Vessels The aortic root is not well visualized. Pericardium/Pleural No pericardial effusion. MMode/2D Measurements & Calculations LVIDd: 4.0 cm IVSd: 1.0 cm LA dimension: 3.2 cm LVIDs: 2.6 cm LVPWd: 0.98 cm RVDd: 3.4 cm FS: 35.0 % LAV(MOD-bp): 37.2 ml LA A4 area: 13.9 cm2 RA A4 area: 13.9 cm2 LAV(MOD-bp) Indexed: 21.7 ml/m2 LAV(MOD-sp2): 37.4 ml LAV(MOD-sp4): 33.6 ml Time Measurements MV dec time: 0.12 sec Doppler Measurements & Calculations MV E max angel: 83.7 cm/sec Lat Peak E' Angel: 16.7 cm/sec Med Peak E' Angel: 11.6 cm/sec MV A max angel: 61.3 cm/sec E/E' lat: 5.0 E/E' med: 7.2 MV E/A: 1.4 MV V2 max: 114.8 cm/sec MV P1/2t max angel: 114.8 cm/sec Ao V2 max: 160.0 cm/sec MV max P.3 mmHg MV P1/2t: 52.5 msec Ao max P.3 mmHg MV V2 mean: 59.5 cm/sec MV dec slope: 640.0 cm/sec2 Ao V2 mean: 102.1 cm/sec MV mean P.7 mmHg MVA(P1/2t): 4.2 cm2 Ao mean P.9 mmHg MV V2 VTI: 21.9 cm Ao V2 VTI: 29.1 cm LV V1 max: 84.5 cm/sec PA V2 max: 78.6 cm/sec LV V1 max P.9 mmHg LV V1 mean P.9 mmHg LV V1 mean: 64.6 cm/sec LV V1 VTI: 18.7 cm ECHO/Echo Complete Interpretation Summary Left ventricular systolic function is normal. The estimated ejection fraction is 65 %. Apical false tendon noted. Equivocal mitral valve prolapse. Mild (1+) mitral valve insufficiency. Trivial tricuspid valve insufficiency. Bicuspid aortic valve. Unable to estimate RV systolic pressure due to insufficient tricuspid regurgita nt envelope. No evidence for diastolic dysfunction. Ordering Physician: Shayla Hernandez Referring Physician: Talon Ray Performed By: Juanito Mcintyre RCS
--- NOTE | 2021-12-24 18:43 | STRESSREP_ITS ---
Stress Test Report Date: 12-24-2021 Procedure: Exercise tolerance test Indications: Chest pain; dyspnea on exertion Consent: Per the patient Procedure: The patient exercised on a Angel protocol for 10 minutes completing stage III and 1 minute of stage IV achieving a peak heart rate of 184 bpm (96% predicted maximal heart rate) with a resting blood pressure of 112/82 mmHg and a peak blood pressure 172/68 mmHg and a peak MET capacity of approximately 13 MET's. The baseline ECG demonstrated normal sinus rhythm. The peak exercise ECG demonstrated no obvious ECG changes. There were no cardiac dysrhythmias pretest, during exercise, or recovery. The functional capacity was considered good. The patient 1 out of 10 throbbing pressure in the left chest during exercise with spontaneous resolution and recovery. The examination was discontinued secondary to chest pressure. Impression: 1. Technically adequate (percent predicted maximal heart rate greater than 85%) exercise tolerance test 2. Peak exercise ECG with no obvious ECG changes 3. There were no cardiac dysrhythmias during exercise or recovery This note was generated with Deep [employer] software. It may contain incorrect words, spelling, and punctuation that were not noted in checking the note before signing.
== END | disposition home or self-care (01) ==
LOC: CVS 12:24
PROVIDERS: PCP Nurse Practitioner Family; Visit Provider Physician Assistant Medical
DX: R07.9 Chest pain, unspecified (principal); R06.09 Other forms of dyspnea; I34.1 Nonrheumatic mitral (valve) prolapse; Q23.1 Congenital insufficiency of aortic valve
CPT/HCPCS: 93017; 93306

== ENCOUNTER 2022-01-12 08:05 | Outpatient (CLI) | payer OTHER, SELFPAY ==
[2022-01-12 08:38] LABS: Hemoglobin A1c 4.7 % (3.8-5.6)
[2022-01-12 08:46] LABS: Cholesterol 216 mg/dL (200); Ferritin 25 ng/mL (8-252); High Density Lipoprotein 66 mg/dL; Iron 76 ug/dL (50-170); Iron Binding Capacity,Total 463 ug/dL (250-450); PERCENT IRON SATURATION 16.4 % (15.0-55.0); Triglycerides 192 mg/dL; Very Low Density Lipoprotein 38 mg/dL (5-40)
[2022-01-12 08:49] LABS: Vitamin B12 400 pg/mL (211-911); Vitamin D,25 Hydroxy 26.6 ng/mL
== END 2022-01-12 23:59 | disposition home or self-care (01) ==
LOC: PAVLAB 08:08
PROVIDERS: PCP Nurse Practitioner Family; Referring Provider Nurse Practitioner Family; Visit Provider Nurse Practitioner Family
DX: Z00.00 Encounter for general adult medical examination without abnormal findings (principal); G25.81 Restless legs syndrome; R73.09 Other abnormal glucose
CPT/HCPCS: 36415; 80061; 82306; 82607; 82728; 83036; 83540; 83550

== ENCOUNTER → 2022-03-18 | Outpatient (CLI) | payer OTHER, SELFPAY ==
[2022-03-18 16:40] LABS: Ferritin 32 ng/mL (8-252); Iron 49 ug/dL (50-170); Iron Binding Capacity,Total 437 ug/dL (250-450); PERCENT IRON SATURATION 11.2 % (15.0-55.0)
[2022-03-20 09:57] LABS: Transferrin 346 mg/dL (192-364)
== END | disposition home or self-care (01) ==
LOC: PAVLAB 15:50
PROVIDERS: PCP Nurse Practitioner Family; Referring Provider Physician Assistant Medical; Visit Provider Physician Assistant Medical
DX: R06.09 Other forms of dyspnea (principal)
CPT/HCPCS: 36415; 82728; 83540; 83550; 84466

== ENCOUNTER → 2022-03-19 | Outpatient (CLI) | payer OTHER, SELFPAY ==
[2022-03-19 09:42] LABS: Absolute Lymphocyte Count 1.66 X10^3/uL (0.83-4.51); Absolute Neutrophil Count 5.8 X10^3/uL (2.0-7.7); Basophil# 0.07 X10^3/uL; Basophil% 0.8 % (0-1); Eosinophil# 0.39 X10^3/uL; Eosinophils% 4.4 % (0-5); Hematocrit 42.3 % (37-47); Hemoglobin 14.6 g/dL (12.0-15.0); Lymphocyte # 1.66 X10^3/ul (0.83-4.51); Lymphocyte % 18.9 % (19-41); Mean Corp Hgb Conc 34.5 g/dL (32-36); Mean Corpuscular Hgb 30.2 pg (27.0-32.0); Mean Corpuscular Volume 87.6 fL (81-99); Mean Platelet Vol. 9.5 fl (6.2-12.0); Monocyte# 0.83 X10^3/uL; Monocyte% 9.4 % (0-10); NRBC Flagged by Analyzer 0 % (0-5); Neutrophil # 5.81 X10^3/uL (2.7-7.7); Neutrophil % 66.2 % (47-70); Platelet Count 372 K/mm3 (150-450); RBC Distribution Width SD 38.9 fl (35.1-43.9); Red Blood Count 4.83 M/mm3 (4.2-5.4); White Blood Count 8.8 K/mm3 (4.4-11.0)
== END | disposition home or self-care (01) ==
LOC: PAVLAB 09:20
PROVIDERS: PCP Nurse Practitioner Family; Referring Provider Nurse Practitioner Family; Visit Provider Nurse Practitioner Family
DX: D50.9 Iron deficiency anemia, unspecified (principal)
CPT/HCPCS: 36415; 85025

== ENCOUNTER → 2022-04-16 | Outpatient (CLI) | payer OTHER, SELFPAY ==
[2022-04-16 12:47] LABS: Uric Acid 3.8 mg/dL (2.6-6.0)
== END | disposition home or self-care (01) ==
LOC: BIMLAB 10:49
PROVIDERS: PCP Nurse Practitioner Family; Referring Provider Nurse Practitioner Family; Visit Provider Nurse Practitioner Family
DX: M10.9 Gout, unspecified (principal)
CPT/HCPCS: 36415; 84550

== ENCOUNTER → 2022-12-07 | Outpatient (CLI) | payer OTHER, SELFPAY ==
[2022-12-13 08:07] LABS: HPV APTIMA, High Risk Negative (Negative)
== END | disposition home or self-care (01) ==
LOC: LABSPEC 15:46
PROVIDERS: Referring Provider Nurse Practitioner Women's Health; Visit Provider Nurse Practitioner Women's Health
DX: Z12.4 Encounter for screening for malignant neoplasm of cervix (principal)
CPT/HCPCS: 87624; 88175; G0145

== ENCOUNTER → 2022-12-20 | Outpatient (CLI) | payer OTHER, SELFPAY ==
[2022-12-20 17:09] LABS: Vitamin D,25 Hydroxy 43.6 ng/mL
[2022-12-20 17:14] LABS: T4 Free Direct 0.91 ng/dL (0.76-1.46); Thyroid Stim Hormone (TSH) 0.79 uIU/mL (0.358-3.74)
[2022-12-22 04:07] LABS: Thyroid Peroxidase AB 41 IU/mL (0-34)
== END | disposition home or self-care (01) ==
LOC: LAB 16:05
PROVIDERS: PCP Internal Medicine; Referring Provider Nurse Practitioner Women's Health; Visit Provider Nurse Practitioner Women's Health
DX: R53.83 Other fatigue (principal); Z13.29 Encounter for screening for other suspected endocrine disorder; Z13.21 Encounter for screening for nutritional disorder
CPT/HCPCS: 36415; 82306; 84439; 84443; 86376

== ENCOUNTER → 2023-07-14 | Outpatient (CLI) | payer OTHER, SELFPAY ==
[2023-07-14 07:44] LABS: Hematocrit 42.5 % (37-47); Hemoglobin 14.4 g/dL (12.0-15.0); Mean Corp Hgb Conc 33.9 g/dL (32-36); Mean Corpuscular Volume 88.5 fL (81-99); Mean Platelet Vol. 9.8 fl (6.2-12.0); Platelet Count 301 K/mm3 (150-450); RBC Distribution Width CV 12.1 % (11.6-14.6); RBC Distribution Width SD 39.4 fl (35.1-43.9); White Blood Count 7.6 K/mm3 (4.4-11.0)
[2023-07-14 08:01] LABS: ALB/GLOB Ratio 1.1 RATIO (0.9-2.4); AST(SGOT) 13 U/L (15-37); Alanine Aminotransfer ALT/SGPT 17 U/L (13-56); Albumin, Serum 3.9 g/dL (3.2-5.0); Alkaline Phosphatase 76 U/L (45-117); Anion Gap 7 (5-15); BUN 10 mg/dL (7-18); BUN/Creat Ratio 12.3 RATIO (10-20); Calcium,Total 8.9 mg/dL (8.5-10.1); Chloride 112 mmol/L (98-107); Cholesterol 166 mg/dL (200); Creatinine, Serum 0.81 mg/dL (0.55-1.02); EST Glomerular Filtration Rate 87 mL/min (>60); Est Glom Filt Rate - Afr Amer 105 mL/min (>60); Ferritin 36 ng/mL (8-252); Globulin 3.4 g/dL (2.2-4.2); Glucose 89 mg/dL (74-106); High Density Lipoprotein 59 mg/dL; Iron 117 ug/dL (50-170); Iron Binding Capacity,Total 405 ug/dL (250-450); Potassium 3.9 mmol/L (3.5-5.1); Protein, Total 7.3 g/dL (6.4-8.2); Sodium Level 138 mmol/L (136-145); Triglycerides 102 mg/dL; Very Low Density Lipoprotein 20 mg/dL (5-40)
[2023-07-14 08:45] LABS: Vitamin B12 434 pg/mL (211-911)
== END | disposition home or self-care (01) ==
LOC: LAB 07:10
PROVIDERS: PCP Internal Medicine; Visit Provider Nurse Practitioner
DX: D50.9 Iron deficiency anemia, unspecified (principal); G25.81 Restless legs syndrome; E78.00 Pure hypercholesterolemia, unspecified; R53.83 Other fatigue
CPT/HCPCS: 80053; 80061; 82607; 82728; 83540; 83550; 85027

== ENCOUNTER → 2023-07-25 | Outpatient (CLI) | payer OTHER, SELFPAY ==
--- NOTE | 2023-07-25 14:04 | ECHOD_ITS ---
Reason For Study: Bicuspid Aortic Valve Procedure This was a 2D Doppler, Color Flow transthoracic echocardiogram. Exam performed in department. Left Ventricle Normal LV size. Left ventricular systolic function is normal. The estimated ejection fraction is 65 %. Normal diastology for age. No regional wall motion abnormalities noted. Right Ventricle Normal RV size. Normal systolic function. Atria Normal left atrium. Normal right atrium. Mitral Valve Equivocal mitral valve prolapse. Tricuspid Valve Normal tricuspid valve. Aortic Valve Bicuspid aortic valve. There is no aortic stenosis. Pulmonic Valve Normal pulmonic valve. Great Vessels Normal aortic root. The pulmonary artery is normal size. Normal inferior vena cava. Pericardium/Pleural No pericardial effusion. MMode/2D Measurements & Calculations LVIDd: 4.7 cm IVSd: 0.76 cm LVOT diam: 2.0 cm LVIDs: 3.1 cm LVPWd: 0.80 cm LVOT area: 3.1 cm2 RVDd: 3.3 cm FS: 34.5 % Ao root diam: 3.1 cm LAV(MOD-bp): 36.5 ml LVAd ap4: 27.0 cm2 LA dimension: 3.0 cm LAV(MOD-bp) Indexed: 21.2 ml/m2 LVLd ap4: 7.6 cm LAV(MOD-sp2): 37.6 ml EDV(MOD-sp4): 78.3 ml LAV(MOD-sp4): 33.2 ml EDV(sp4-el): 80.8 ml LVAs ap4: 14.3 cm2 LVLs ap4: 6.2 cm ESV(MOD-sp4): 27.6 ml ESV(sp4-el): 27.8 ml EF(MOD-sp4): 64.7 % EF(sp4-el): 65.6 % SV(MOD-sp4): 50.7 ml SV(sp4-el): 53.1 ml LA A4 area: 14.3 cm2 RA A4 area: 12.0 cm2 TAPSE: 1.9 cm Time Measurements MV dec time: 0.17 sec Doppler Measurements & Calculations MV E max angel: 87.4 cm/sec Lat Peak E' Angel: 17.3 cm/sec Med Peak E' Angel: 14.6 cm/sec MV A max angel: 63.7 cm/sec E/E' lat: 5.1 E/E' med: 6.0 MV E/A: 1.4 MV V2 max: 114.0 cm/sec MV P1/2t max angel: 114.8 cm/sec Ao V2 max: 148.4 cm/sec MV max P.2 mmHg MV P1/2t: 65.6 msec Ao max P.8 mmHg MV V2 mean: 49.6 cm/sec Ao V2 mean: 101.2 cm/sec MV mean P.3 mmHg MV dec slope: 512.2 cm/sec2 Ao mean P.8 mmHg MV V2 VTI: 29.4 cm MVA(P1/2t): 3.4 cm2 Ao V2 VTI: 32.9 cm AV (velocity ratio): 0.76 MVA(VTI): 2.6 cm2 KARISHMA(I,D): 2.3 cm2 KARISHMA(V,D): 2.2 cm2 LV V1 max: 105.4 cm/sec SV(LVOT): 76.6 ml PA V2 max: 83.5 cm/sec LV V1 max P.4 mmHg PA max PG (full): 0.49 mmHg LV V1 mean P.7 mmHg PA V2 mean: 59.0 cm/sec LV V1 mean: 77.1 cm/sec PA mean PG (full): 0.41 mmHg LV V1 VTI: 25.0 cm ECHO/Echo Complete Interpretation Summary Normal LV size. Left ventricular systolic function is normal. The estimated ejection fraction is 65 %. Bicuspid aortic valve. There is no aortic stenosis. Ordering Physician: Shayla Hernandez Referring Physician: Mirlande Jolly Performed By: Juanito Mcintyre RCS
== END | disposition home or self-care (01) ==
LOC: CVS 14:01
PROVIDERS: PCP Internal Medicine; Visit Provider Physician Assistant Medical
DX: Q23.1 Congenital insufficiency of aortic valve (principal); I34.1 Nonrheumatic mitral (valve) prolapse
CPT/HCPCS: 93306

== ENCOUNTER → 2023-12-01 | Outpatient (CLI) | payer OTHER, SELFPAY ==
[2023-12-01 08:51] LABS: T4 Free Direct 0.71 ng/dL (0.76-1.46)
[2023-12-07 11:09] LABS: Thyroid Peroxidase AB 74 IU/mL (0-34)
== END | disposition home or self-care (01) ==
LOC: LAB 07:03
PROVIDERS: PCP Nurse Practitioner; Visit Provider Nurse Practitioner Women's Health
DX: R53.83 Other fatigue (principal); Z13.21 Encounter for screening for nutritional disorder; Z13.29 Encounter for screening for other suspected endocrine disorder
CPT/HCPCS: 82306; 84439; 84443; 86376

== ENCOUNTER → 2023-12-12 | Outpatient (CLI) | payer OTHER, SELFPAY ==
[2023-12-20 11:10] LABS: HPV APTIMA, High Risk Negative (Negative)
== END | disposition home or self-care (01) ==
LOC: LABSPEC 13:47
PROVIDERS: PCP Nurse Practitioner; Referring Provider Nurse Practitioner Women's Health; Visit Provider Nurse Practitioner Women's Health
DX: Z12.4 Encounter for screening for malignant neoplasm of cervix (principal)
CPT/HCPCS: 87624; 88175; G0145

== ENCOUNTER 2024-01-11 10:30 | Outpatient (RCR) | payer OTHER, SELFPAY ==
--- NOTE | 2023-12-05 11:58 | HP.PTEVAL_ITS ---
Patient's Visit Information Visit Information Visit Information: JANES GONZÁLES is a 33 year old F referred to Physical Therapy by LIZZY Knapp with a diagnosis of B foot pain. Date of Evaluation: 12/05/23 Physical Therapist: Will Seals DPT Visit Plan Frequency: 1x/Week Duration: 2 Weeks Plan: 1) fit for custom orthotics 2) make final adjustments after fitting 3) educate in wearing program. Subjective Subjective: Pt. is here today for her initial evaluation with diagnosis of bilateral foot pain with need for orthotic shoe inserts. Pt. reports having increased B foot pain for a few year, but her R foot has been worse since breaking a bone inher foot a few years ago. 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 She reports not doing much recreational activities due to her work and school schedule. She reports averaging ~10514 steps a day while at work. Pt. is hopeful to get orthotics to increase her tolerance to all work and walking activities. Pain R foot: Pain Intensity (Out of 10): 2 Pain Intensity Range: 0 and 2 L foot: Pain Intensity (Out of 10): 1 Pain Intensity Range: 0 and 2 Objective Objective: POSTURE: Pt. has normal foot positioning in stance, increased pronation during SLS bilaterally and equally. PALPATION: Pt. has tenderness along longitudinal arch bilaterally R worse than L. NEURO: normal throughout. ROM: R ankle: DF 14deg, PF 41deg, INV 20deg, EVR 20deg. L ankle: DF 15deg, PF 42deg, INV 20deg, EVR 20deg. Normal B knee ROM noted. MMT: PT. has 5/5 strength throughout B feet and ankles. GAIT: Withotu shoes on pt. has marked pronation during stance bilaterally. Balance/Special Test Scores Lower Extremity Functional Score: 80 Goals Goal 1:: STG: Pt. to be fit for custom orthotics Goal Time Frame: 1 Week Goal 2:: LTG: Pt. to be educated in progressive wearing pattern for her orthotics. Goal Time Frame: 2 Weeks Rehabilitation Potential Physical Therapy Diagnosis: Pt. has signs and symptoms consistent with B foot pain. Pt. would benefit from PT to have custom orthotics molded to aide in tolerance to walking and standing. Rehabilitation Potential: Excellent Anticipated Interventions Patient/Client Instruction: Educate patient on: Condition, Plan of Care, Risk Factors and Benefits of Fitness Program For the Purpose of:: To improve decision making, To facilitate caregiver knowledge, To improve self management, To prevent re-injury and To improve ability to perform tasks related to life management Orthotics: Shoe insert For the Purpose of:: To decrease pain, To increase ROM, To improve nutrient delivery to tissue and To increase oxygenation perfusion Text: Thank you for the opportunity to evaluate your patient. For Medicare and Medicare HMO plans, please review the plan of care and approve it. It will need to be FAXED BACK to us at [phone] for Medicare purposes. For Medicare only, by signing this I certify the plan of care. Please let me know if there are questions or concerns regarding this plan of care. Physician Signature: Date:
--- NOTE | 2024-01-11 10:36 | HP.PTDCSUM ---
Discharge Summary D/C summary: It has been my pleasure to treat JANES GONZÁLES referred by LIZZY Knapp, with the diagnosis of B foot pain for a total of 2 visit(s). Discharge Date: 01/11/24 Please see the following information for a summary of their discharge status. Subjective Subjective: No pain. Pain R foot: Pain Intensity (Out of 10): 2 L foot: Pain Intensity (Out of 10): 1 Overall Improvement % Improvement: 100 Objective Objective/Function: Good support felt in B shoes with orthotics in. Will call if problems or concerns to have modified. Goals Goal 1:: STG: Pt. to be fit for custom orthotics Goal Progress: Goal Met Goal 2:: LTG: Pt. to be educated in progressive wearing pattern for her orthotics. Goal Progress: Goal Met Plan Plan: d/c D/C Information Discharge Comments: has orthotics and will call if problems with them. d/c sentence: If there are questions or concerns regarding this patient's physical therapy, please feel free to call me at [phone]. Thank you for the referral of this patient. Sincerely, Tomer Mitchell, DPT, OCS, CSCS Balance/Gait/Functional tests Balance/Special Test Scores Lower Extremity Functional Score: 80 Improvement % Improvement: 100
== END 2024-01-11 19:00 | disposition home or self-care (01) ==
LOC: PT 10:30
PROVIDERS: PCP Nurse Practitioner; Referring Provider Nurse Practitioner; Visit Provider Nurse Practitioner
DX: M79.671 Pain in right foot (principal); M79.672 Pain in left foot
CPT/HCPCS: 97161; 97760; 97763

== ENCOUNTER → 2024-01-27 | Outpatient (CLI) | payer OTHER, SELFPAY ==
--- NOTE | 2024-01-27 08:26 | US_ITS ---
STUDY: THYROID ULTRASOUND REASON FOR EXAM: Female, 33 years old. Hypothyroidism. TECHNIQUE: Ultrasound evaluation of the thyroid was performed with real-time and static nolan-scale imaging. COMPARISON: None. FINDINGS: RIGHT LOBE: The right lobe of the thyroid gland measures 4.6 cm x 1.7 cm x 1.3 cm. There is a heterogeneous echotexture. There are no demonstrated solid, cystic or complex lesions. LEFT LOBE: The left lobe of the thyroid gland measures 4.6 cm x 2.2 cm x 1.5 cm. There is a heterogeneous echotexture. There are no demonstrated solid, cystic or complex lesions. ISTHMUS: The isthmus measures 1.7 mm. The regional lymph nodes are normal. US/Thyroid IMPRESSION: Heterogeneous echotexture of both lobes of thyroid gland without a distinct nodule. Electronically Signed: Eulogio Christy MD at 9:46 EST ,
== END | disposition home or self-care (01) ==
PROVIDERS: PCP Nurse Practitioner; Referring Provider Nurse Practitioner; Visit Provider Nurse Practitioner
DX: E07.9 Disorder of thyroid, unspecified (principal)
CPT/HCPCS: 76536

== ENCOUNTER → 2024-03-22 | Outpatient (CLI) | payer OTHER, SELFPAY ==
[2024-03-22 15:31] LABS: Absolute Lymphocyte Count 1.36 X10^3/uL (0.83-4.51); Absolute Neutrophil Count 6.6 X10^3/uL (2.0-7.7); Basophil# 0.07 X10^3/uL; Basophil% 0.8 % (0-1); Eosinophil# 0.32 X10^3/uL; Eosinophils% 3.5 % (0-5); Hematocrit 43.7 % (37-47); Hemoglobin 14.1 g/dL (12.0-15.0); Lymphocyte # 1.36 X10^3/ul (0.83-4.51); Lymphocyte % 14.7 % (19-41); Mean Corp Hgb Conc 32.3 g/dL (32-36); Mean Corpuscular Hgb 28.9 pg (27.0-32.0); Mean Corpuscular Volume 89.5 fL (81-99); Mean Platelet Vol. 9.8 fl (6.2-12.0); Monocyte# 0.85 X10^3/uL; Monocyte% 9.2 % (0-10); NRBC Flagged by Analyzer 0 % (0-5); Neutrophil # 6.62 X10^3/uL (2.7-7.7); Neutrophil % 71.4 % (47-70); Platelet Count 431 K/mm3 (150-450); RBC Distribution Width CV 11.8 % (11.6-14.6); RBC Distribution Width SD 38.5 fl (35.1-43.9); Red Blood Count 4.88 M/mm3 (4.2-5.4); White Blood Count 9.3 K/mm3 (4.4-11.0)
[2024-03-22 15:49] LABS: Anion Gap 5 (5-15); BUN 9 mg/dL (7-18); BUN/Creat Ratio 9.6 RATIO (10-20); Calcium,Total 9.2 mg/dL (8.5-10.1); Chloride 107 mmol/L (98-107); Creatinine, Serum 0.94 mg/dL (0.55-1.02); EST Glomerular Filtration Rate 73 mL/min (>60); Est Glom Filt Rate - Afr Amer 89 mL/min (>60); Glucose 81 mg/dL (74-106); Potassium 4.4 mmol/L (3.5-5.1); Sodium Level 138 mmol/L (136-145)
== END | disposition home or self-care (01) ==
PROVIDERS: PCP Internal Medicine; Referring Provider Student in an Organized Health Care Education/Training Program; Visit Provider Student in an Organized Health Care Education/Training Program
DX: F90.9 Attention-deficit hyperactivity disorder, unspecified type (principal); F32.A Depression, unspecified; E07.9 Disorder of thyroid, unspecified
CPT/HCPCS: 36415; 80048; 85025

== ENCOUNTER → 2024-04-17 | Outpatient (CLI) | payer OTHER, SELFPAY ==
[2024-04-17 13:12] LABS: Absolute Lymphocyte Count 0.96 X10^3/uL (0.83-4.51); Absolute Neutrophil Count 6.7 X10^3/uL (2.0-7.7); Basophil# 0.06 X10^3/uL; Basophil% 0.7 % (0-1); Eosinophil# 0.16 X10^3/uL; Eosinophils% 1.9 % (0-5); Hematocrit 38.2 % (37-47); Hemoglobin 12.8 g/dL (12.0-15.0); Lymphocyte # 0.96 X10^3/ul (0.83-4.51); Lymphocyte % 11.2 % (19-41); Mean Corp Hgb Conc 33.5 g/dL (32-36); Mean Corpuscular Hgb 29.4 pg (27.0-32.0); Mean Corpuscular Volume 87.6 fL (81-99); Mean Platelet Vol. 9.5 fl (6.2-12.0); Monocyte# 0.65 X10^3/uL; Monocyte% 7.6 % (0-10); NRBC Flagged by Analyzer 0 % (0-5); Neutrophil # 6.68 X10^3/uL (2.7-7.7); Neutrophil % 78.2 % (47-70); Platelet Count 375 K/mm3 (150-450); RBC Distribution Width CV 11.9 % (11.6-14.6); RBC Distribution Width SD 38.3 fl (35.1-43.9); Red Blood Count 4.36 M/mm3 (4.2-5.4); White Blood Count 8.5 K/mm3 (4.4-11.0)
[2024-04-17 13:56] LABS: ALB/GLOB Ratio 1.6 RATIO (0.9-2.4); AST(SGOT) 20 U/L (<=31); Alanine Aminotransfer ALT/SGPT 13 U/L (<=34); Albumin, Serum 4.3 g/dL (3.5-5.0); Alkaline Phosphatase 86 U/L (35-104); Anion Gap 11 (5-15); BUN 9 mg/dL (4-19); BUN/Creat Ratio 11.8 RATIO (10-20); Carbon Dioxide 22.3 mmol/L (21.0-32.0); Chloride 106 mmol/L (98-108); Creatinine, Serum 0.72 mg/dL (0.70-1.20); EST Glomerular Filtration Rate 114 (>60); Globulin 2.7 g/dL (2.2-4.2); Glucose 89 mg/dL (70-99); Potassium 4.1 mmol/L (3.3-5.1); Sodium Level 140 mmol/L (133-145); Total Bilirubin 0.37 mg/dL (0.00-1.30)
[2024-04-21 05:07] LABS: H. PYLORI STOOL AG Negative (Negative)
== END | disposition home or self-care (01) ==
LOC: LAB 12:09
PROVIDERS: PCP Internal Medicine; Referring Provider Internal Medicine; Visit Provider Internal Medicine
DX: R10.9 Unspecified abdominal pain (principal)
CPT/HCPCS: 36415; 80053; 85025; 87338

== ENCOUNTER → 2024-04-22 | Outpatient (CLI) | payer OTHER, SELFPAY ==
--- NOTE | 2024-04-22 07:16 | CT_ITS ---
PROCEDURE: CT abdomen pelvis with IV contrast REASON FOR EXAM: Epigastric pain TECHNIQUE: Multiple contiguous axial images through the abdomen and pelvis were obtained after the administration of intravenous contrast. Two-dimensional coronal and sagittal reformatted images were reconstructed. Low-dose imaging technique was utilized. COMPARISON: 05/15/2020 FINDINGS: Lung bases are clear. Liver, spleen, pancreas and adrenal glands are intact. Gallbladder is satisfactory. No significant biliary ductal dilation. Kidneys enhance symmetrically. No suspicious renal mass, calculi or hydronephrosis. Urinary bladder is intact. Uterus and ovaries are present. No bowel obstruction, focal bowel wall thickening or significant perienteric inflammation. Normal appendix. No pelvic free fluid. No free air. No abdominal aortic aneurysm or suspicious adenopathy. Superficial soft tissues are within normal limits. No acute osseous abnormality. CT/Abdomen/Pelvis WITH Contrast IMPRESSION: No acute process. One or more dose reduction techniques were used (e.g., Automated exposure contr ol, adjustment of the mA and/or kV according to patient size, use of iterative reconstruction technique). Reading Location: [facility]
== END | disposition home or self-care (01) ==
LOC: CT 07:16
PROVIDERS: PCP Internal Medicine; Referring Provider Internal Medicine; Visit Provider Internal Medicine
DX: R10.13 Epigastric pain (principal)
CPT/HCPCS: 74177; Q9967

== ENCOUNTER → 2024-06-01 | Day surgery (SDC) | payer OTHER, SELFPAY ==
[2024-06-01 08:19] VITALS: BP 109/74; PULSE 71; TEMP 36.2; O2SAT 99
[2024-06-01] MEDS: Lidocaine Jelly 2% 20 ML Syringe (URO-JET) 1 APPLIC (08:25)
[2024-06-01 08:48] VITALS: RESP 16
== END | disposition home or self-care (01) ==
LOC: EN 08:00
PROVIDERS: PCP Internal Medicine; Referring Provider Internal Medicine; Visit Provider Internal Medicine Gastroenterology
PROC: F00ZJWZ Instrumental Swallowing and Oral Function Assessment using Swallowing Equipment (ICD-10-PCS; CPT 43235; principal; 2024-06-01 07:55)
DX: K21.9 Gastro-esophageal reflux disease without esophagitis (principal)
CPT/HCPCS: 91010

== ENCOUNTER → 2024-06-05 | Outpatient (CLI) | payer OTHER, SELFPAY ==
[2024-06-05 09:25] LABS: Anion Gap 11 (5-15); BUN 7 mg/dL (4-19); BUN/Creat Ratio 9.3 RATIO (10-20); Calcium,Total 9.4 mg/dL (7.6-11.0); Chloride 107 mmol/L (98-108); Creatinine, Serum 0.77 mg/dL (0.70-1.20); EST Glomerular Filtration Rate 106 (>60); Glucose 95 mg/dL (70-99); Potassium 4.2 mmol/L (3.3-5.1); Sodium Level 138 mmol/L (133-145)
== END | disposition home or self-care (01) ==
LOC: LAB 08:49
PROVIDERS: PCP Internal Medicine; Visit Provider Physician Assistant Medical
DX: R00.2 Palpitations (principal)
CPT/HCPCS: 80048; 83735; 84443

== ENCOUNTER → 2024-06-20 | Outpatient (CLI) | payer OTHER, SELFPAY | END | disposition home or self-care (01) | LOC: PSN 08:14 | PROVIDERS: PCP Internal Medicine; Referring Provider Physician Assistant Medical; Visit Provider Physician Assistant Medical | DX: R00.2 Palpitations (principal) | CPT/HCPCS: 93225; 93226 ==

== ENCOUNTER → 2024-09-14 | Outpatient (CLI) | payer OTHER, SELFPAY ==
--- OUTSIDE RECORDS SUMMARY | 2024-09-14 07:25 | XMS RPT_ITS | CCD ---
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 macrocrystals 25 mg / nitrofurantoin, monohydrate 75 mg oral capsule (10 sources) Nitrofuran Antibacterial Start: 08-08-2019 End: 08-15-2019 take 1 capsule by mouth twice daily at mealtime Nitrofurantoin Monohyd/M-Cryst (Macrobid) 100 mg capsule Discontinued 100 MG PO TWICE A DAY 14 August 07, 2019 11:00pm August 14, 2019 11:02pm must administer with a meal/food norethindrone acetate 5 mg oral tablet (10 sources) Start: 07-14-2021 End: 08-06-2021 take 1 tablet by mouth twice daily, then take 1 tablet by mouth once daily Norethindrone Acetate (Aygestin) 5 mg tablet Discontinued 5 MG PO .COMPLEX July 13, 2021 11:00pm August 06, 2021 1:18pm 5 mg PO BID x 3 days and then once daily for remainder ondansetron 4 mg disintegrating oral tablet (20 sources) Serotonin-3 Receptor Antagonist Start: 10-31-2021 End: 12-15-2021 take 4 mg by mouth every four hours Ondansetron Discontinued 4 MG PO Q4H November 05, 2021 6:48am December 15, 2021 2:27pm Start: 03-25-2017 End: 05-04-2018 take 1 tablet by mouth every four hours Ondansetron Hcl (Zofran) 4 mg tablet Discontinued 4 MG PO Q4H September 28, 2017 6:23am May 04, 2018 12:42pm pantoprazole 40 mg delayed release oral tablet (10 sources) Proton Pump Inhibitor Start: 07-01-2021 End: 08-06-2021 take 40 mg by mouth once daily Pantoprazole Discontinued 40 MG PO DAILY June 30, 2021 11:00pm August 06, 2021 1:18pm PARoxetine hydrochloride 40 mg oral tablet (20 sources) Serotonin Reuptake Inhibitor Start: 08-06-2021 End: 03-01-2022 take 40 mg by mouth once daily Paroxetine Hcl Discontinued 40 MG PO DAILY February 22, 2022 2:35pm March 01, 2022 4:17pm Start: 05-26-2021 End: 07-15-2021 Paroxetine Hcl Discontinued 40 MG PO May 25, 2021 11:00pm July 15, 2021 1:47pm Start: 01-22-2021 End: 04-20-2021 take 40 mg by mouth once daily Paroxetine Hcl Disconti nued 40 MG PO DAILY January 22, 2021 12:53pm April 20, 2021 6:13am Start: 09-04-2020 End: 01-22-2021 take 15 mg by mouth once daily Paroxetine Hcl Disconti nued 15 MG PO DAILY September 04, 2020 9:10am January 22, 2021 12:53pm Start: 08-29-2020 End: 09-04-2020 take 20 mg by mouth once daily Paroxetine Hcl Disconti nued 20 MG PO DAILY August 29, 2020 3:45pm September 04, 2020 9:11am Start: 08-05-2020 End: 08-29-2020 take 1 tablet by mouth once daily Paroxetine Hcl (Paxil) 10 mg tablet Discontinued 10 MG PO DAILY August 04, 2020 11:00pm August 29, 2020 3:45pm phenazopyridine hydrochloride 100 mg oral tablet (10 sources) Start: 08-08-2019 End: 11-07-2019 take 1 tablet by mouth three times daily Phenazopyridine (Pyridium) 100 mg tablet Discontinued 100 MG PO THREE TIMES A DAY 6 0 August 07, 2019 11:00pm November 07, 2019 4:21pm prednisoLONE 5 mg oral tablet (10 sources) Corticosteroid Start: 10-02-2019 End: 11-07-2019 prednisolone 5 mg (21 tabs) tablets in a dose pack Discontinued 0 PO per package directions October 01, 2019 11:00pm November 07, 2019 4:21pm PO PER PKG DIR rOPINIRole 0.25 mg oral tablet (8 sources) Nonergot Dopamine Agonist Start: 12-24-2021 End: 02-24-2022 take 0.25 mg by mouth at bedtime Ropinirole Discontinued 0.25 MG PO AT BEDTIME February 09, 2022 12:31pm February 24, 2022 2:22pm administer 1-3 hours before bedtime sucralfate 1000 mg oral tablet (8 sources) Aluminum Complex Start: 09-10-2021 End: 11-17-2021 take 1 tablet by mouth at bedtime Sucralfate (Carafate) 1 gram tablet Discontinued 1 GM PO before meals and at bedtime September 09, 2021 11:00pm November 17, 2021 12:32pm tamsulosin hydrochloride 0.4 mg oral capsule (10 sources) alpha-Adrenergic Gordo Start: 05-15-2020 End: 05-20-2020 take 0.4 mg by mouth once daily Tamsulosin Discontinued 0.4 MG PO DAILY May 14, 2020 11:00pm May 20, 2020 12:09pm valACYclovir 1000 mg oral tablet (20 sources) Herpesvirus Nucleoside Analog DNA Polymerase Inhibitor, Herpes Simplex Virus Nucleoside Analog DNA Polymerase Inhibitor, Herpes Zoster Virus Nucleoside Analog DNA Polymerase Inhibitor Start: 07-08-2020 End: 11-17-2020 Valacyclovir (Valtrex) 1 gram tablet Discontinued 1000 MG PO TWICE A DAY 11 18July 07, 2020 11:00pm November 17, 2020 12:22pm Start: 07-26-2019 End: 12-04-2019 Valacyclovir (Valtrex) 1 gra m tablet Discontinued 1000 MG PO TWICE A DAY July 25, 2019 11:00pm December 04, 2019 8:53am 24 hr venlafaxine 37.5 mg extended release oral capsule (10 sources) Serotonin and Norepinephrine Reuptake Inhibitor Start: 06-07-2017 End: 05-04-2018 take 1 capsule by mouth once daily Venlafaxine (Effexor Xr) 37.5 mg capsule,extended release 24hr Discontinued 37.5 MG PO daily June 06, 2017 11:00pm May 04, 2018 12:47pm Problems Active Problems Problem Classification Problem Date Documented Date Episodic/Chronic Anxiety disorders (13 sources) Anxiety; Translations: [Anxiety disorder, unspecified] Onset: 07-31-2024 03-01-2022 Chronic Asthma (17 sources) Acute exacerbation of asthma co-occurrent with allergic rhinitis; Translations: [Unspecified asthma with (acute) exacerbation] Chronic Attention-deficit, conduct, and disruptive behavior disorders (1 source) Attention-deficit hyperactivity disorder, unspecified type; Translations: [Attention-deficit hyperactivity disorder, unspecified type] Onset: 07-31-2024 Chronic Calculus of urinary tract (10 sources) Ureteric stone; Translations: [Calculus of ureter] 05-16-2020 Episodic Cardiac and circulatory congenital anomalies (20 sources) Bicuspid aortic valve; Translations: [Congenital insufficiency of aortic valve] Onset: 05-31-2012 05-31-2012 Chronic Cardiac dysrhythmias (10 sources) Ventricular premature beats; Translations: [Ventricular premature depolarization] Onset: 06-02-2016 06-02-2016 Chronic Cardiac dysrhythmias (11 sources) Palpitations; Translations: [Palpitations] Onset: 05-04-2012 05-04-2012 Episodic Deficiency and other anemia (2 sources) Iron deficiency anemia; Translations: [Iron deficiency anemia, unspecified] 03-19-2022 Episodic Esophageal disorders (20 sources) Gastroesophageal reflux disease; Translations: [Gastro-esophageal reflux disease without esophagitis] Onset: 06-08-2024 Chronic Fluid and electrolyte disorders (10 sources) Hypokalemia; Translations: [Hypokalemia] 05-16-2020 Episodic Heart valve disorders (20 sources) Mitral valve prolapse; Translations: [Nonrheumatic mitral (valve) prolapse] Onset: 05-31-2012 05-31-2012 Chronic Immunizations and screening for infectious disease (2 sources) Patient encounter status; Translations: [Encounter for screening for respiratory tuberculosis] 02-19-2022 Episodic Mood disorders (1 source) Mood disorders; Translations: [Depression, unspecified] Onset: 07-31-2024 Nausea and vomiting (14 sources) Regurgitation of food; Translations: [Vomiting, unspecified] Episodic Nonspecific chest pain (10 sources) Chest pain; Translations: [Chest pain, unspecified] Episodic Other aftercare (10 sources) Drug indicated; Translations: [Other lobsterman (current) drug therapy] 04-20-2021 Episodic Other bone disease and musculoskeletal deformities (20 sources) Segmental and somatic dysfunction; Translations: [Segmental and somatic dysfunction of cervical region] 04-20-2021 Episodic Other hereditary and degenerative nervous system conditions (3 sources) Restless legs; Translations: [Restless legs syndrome] 01-08-2022 Chronic Other hereditary and degenerative nervous system conditions (4 sources) Restless legs syndrome; Translations: [Restless legs syndrome (RLS)] Onset: 07-31-2024 Chronic Other lower respiratory disease (10 sources) Cough; Translations: [[id number] syndrome manifesting as chronic cough] 03-31-2021 Episodic Other lower respiratory disease (10 sources) Persistent cough; Translations: [Persistent cough for 3 weeks or longer] 04-20-2021 Episodic Other lower respiratory disease (5 sources) Dyspnea on exertion; Translations: [Other forms of dyspnea] 12-15-2021 Episodic Other lower respiratory disease (5 sources) Other forms of dyspnea; Translations: [Other respiratory abnormalities] Episodic Other upper respiratory disease (10 sources) Nasal congestion; Translations: [Nasal congestion] 04-20-2021 Episodic Other upper respiratory infections (20 sources) Viral upper respiratory tract infection; Translations: [Acute upper respiratory infection, unspecified] 04-20-2021 Episodic Otitis media and related conditions (10 sources) Acute otitis media; Translations: [Otitis media, unspecified, unspecified ear] 04-20-2021 Episodic Residual codes; unclassified (10 sources) Abnormal cytology findings; Translations: [ASCUS with positive high risk HPV] 10-09-2020 Episodic Unclassified (4 sources) Gynecologic examination ; Translations: [Encounter for gynecological examination (general) (routine) without abnormal findings] Onset: 09-29-2016 09-29-2016 Unclassified (7 sources) Contraception care management; Translations: [Encounter for contraceptive management, unspecified] Onset: 09-29-2016 09-29-2016 Past or Other Problems Problem Classification Problem Date Documented Date Episodic/Chronic Abdominal pain (2 sources) Epigastric pain; Translations: [Unspecified abdominal pain] Onset: 04-27-2024 Episodic Chronic obstructive pulmonary disease and bronchiectasis (10 sources) Bronchitis; Translations: [Bronchitis, not specified as acute or chronic] Onset: 03-25-2016 03-25-2016 Episodic Conditions associated with dizziness or vertigo (10 sources) Dizziness; Translations: [Dizziness and giddiness] Onset: 05-10-2012 05-10-2012 Episodic Contraceptive and procreative management (2 sources) Encounter for contraceptive management, unspecified; Translations: [Encounter for contraceptive management, unspecified] Onset: 09-29-2016 09-29-2016 Episodic Malaise and fatigue (1 source) Other fatigue; Translations: [Other fatigue] Onset: 12-22-2023 Episodic Other circulatory disease (10 sources) Electrocardiogram abnormal; Translations: [Abnormal electrocardiogram [ECG] [EKG]] Onset: 05-10-2012 05-10-2012 Episodic Other ear and sense organ disorders (10 sources) Otalgia, unspecified ear; Translations: [Otalgia, unspecified ear] Onset: 03-25-2016 03-25-2016 Episodic Other female genital disorders (5 sources) Vaginal discharge; Translations: [Other specified noninflammatory disorders of vagina] Onset: 12-03-2016 12-03-2016 Episodic Other screening for suspected conditions (not mental disorders or infectious disease) (1 source) Encounter for screening for malignant neoplasm of cervix; Translations: [Encounter for screening for malignant neoplasm of cervix] Onset: 01-03-2024 Episodic Thyroid disorders (1 source) Disorder of thyroid, unspecified; Translations: [Disorder of thyroid, unspecified] Onset: 02-29-2024 Episodic Results Test Name Value Interpretation Reference Range Facility Cardiology Visit Reporton Cardiology Visit Report [facility] [address] [place] [address]. [address] [place] [address] OFFICE VISIT Date of Service: 09/04/24 MR#: [id number] Acct: [id number] Name: DOMINGA GONZÁLES Rep #: [id number] : 1990 Provider: JOSH Roberts Age/Sex: 33/F Location: [facility] [place] Status: Signed HPI HPI History of Present Illness Details: Dominga Gonzáles is a 32-year-old female that presents here today for a cardiovascular follow up. She does have a history of mild mitral valve prolapse, bicuspid appearing aortic valve and palpitations. Because of her continued palpitation she did undergo a 14-day event monitor. This did not demonstrate anything significant except periods of sinus tachycardia. She does not have any chest pain or worsening shortness of breath. Intake Vital Signs 05/10/24 07:30 07/12/24 11:08 09/04/24 16:05 Height 5 ft 4 in 5 ft 4 in 5 ft 4 in Weight: 177 lb BMI 30.4 BP 119/80 Blood Pressure Location Lt brachial Position Sitting Respiration 16 Pulse 67 Pulse Source Monitor Pulse Oximetry (%) 95 Oxygen Delivery Method room air Intake Visit Reasons: 1 Y FU/PREV PFM Is patient in pain?: No Allergies No Known Allergies Allergy (Verified 09/04/24 16:06) Medications ???Medication ???Instructions ???Recorded ???Confirmed ???Type melatonin 10 mg tablet 10 mg PO HS PRN 08/11/22 09/04/24 History albuterol sulfate 90 mcg/actuation 2 puff inhalation Q4H PRN 09/04/24 Rx aerosol inhaler (Ventolin HFA) shortness of breath or wheezing #18 grams lorazepam 1 mg tablet 0.5 - 1 mg (0.5 - 1 x 1 mg) PO 09/04/24 Rx DAILY PRN anxiety #30 tabs valacyclovir 1 gram tablet 2,000 mg PO BID PRN 11/30/2309/04 History (Valtrex) ferrous fumarate 325 mg (106 mg 325 mg PO QDAY 04/17/24 09/04/24 H istory iron) tablet rabeprazole 20 mg tablet,delayed 20 mg PO QDAY #90 tabs 05/16/24 Rx release clonidine HCl 0.1 mg tablet 0.1 mg PO QHS tics #90 tabs 09/04/24 Rx gabapentin 300 mg capsule 300 mg PO QHS #90 caps 06/18/24 Rx hydroxyzine HCl 50 mg tablet 50 mg PO QHS PRN sleep #90 tabs 09/04/24 Rx vilazodone 40 mg tablet 40 mg PO DAILY 90 days #90 tabs 09/04/24 Rx lisdexamfetamine 30 mg capsule 30 mg PO DAILY 30 days #30 caps 09/04/24 Rx (Vyvanse) ropinirole 0.25 mg tablet 0.25 mg PO QHS PRN restless leg(s) 07/12/24 09/04/24 Rx #90 tabs ondansetron 8 mg disintegrating 8 mg PO Q4H PRN nausea and 5 09/04/24 Rx tablet vomiting #30 tabs Ejection fraction %: 65 PFSH Medical History Thyroid disorder ADHD Depression, unspecified LISA (generalized anxiety disorder) TIKA (iron deficiency anemia) Restless leg syndrome Wears glasses Anxiety Alcohol use Gastric reflux Non-smoker Asthma Shortness of breath on exertion History of echocardiogram History of stress test On Accutane therapy Mitral valve prolapse Bicuspid aortic valve Surgical History Hx of wisdom tooth extraction Hx of prior ablation treatment Family History Father Angina pectoris Thyroid disorder Grandfather Angina pectoris Heart disease CABG Grandfather Skin cancer Grandmother CVA (cerebral vascular accident) Diabetes Hypertension Hyperlipidemia Mother Hyperlipidemia Social History household members: spouse current occupational status: employed 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 [employer] Smoking Status: Never smoker alcohol intake: current alcohol intake frequency: holidays/special occasions only substance use type: does not use what type of physical activity do you participate in: other details: Cardio frequency: 3-4 times per week do you feel safe at home: Yes additional social history: - Joel ROS Const Const: Negative for fatigue, weakness, fever(s), headache(s), chills, frequent falls, night sweats, daytime sleepiness, difficulty sleeping, excessive sweating or weight gain Eyes Eyes: Negative for blind spots, loss of peripheral vision, transient loss of vision, blurry vision or change in vision ENT ENT: Negative for headache(s), dizziness, tinnitus, Nosebleed/epistaxis, balance problems or neck pain Cardio Chest Pain: No Palpitations: Yes (improved from daily to none recently) feels like its: other (flutter) Edema: None Muscle aches with walking: None Resp Respiratory: Negative for SOB with activity, SOB at rest, SOB orthopnea SOB lying down, Cough, Coughing up blood/hemoptysis or paroxysmal nocturnal dyspnea GI GI: Positive for heartbu (more content not included)... Normal [facility] MR/BMS.BPon 07-12-2024 MR/BMS.[facility] [address], [address] [place] [address] OFFICE VISIT Date of Service: 07/12/24 MR#: [id number] Acct: [id number] Name: DOMINGA GONZÁLES Rep #: [id number] : 1990 Provider: Dr. Serge Barker se, DO Age/Sex: 33/F Location: [facility] [place] Status: Signed Intake Vital Signs 05/10/24 07:30 07/12/24 11:08 Height 5 ft 4 in 5 ft 4 in BP Intake Visit Reasons: 2 M FU Allergies No Known Allergies Allergy (Verified 05/10/24 07:31) [facility] Medical History Thyroid disorder ADHD Depression, unspecified LISA (generalized anxiety disorder) TIKA (iron deficiency anemia) Restless leg syndrome Wears glasses Anxiety Alcohol use Gastric reflux Non-smoker Asthma Shortness of breath on exertion History of echocardiogram History of stress test On Accutane therapy Mitral valve prolapse Bicuspid aortic valve Surgical History Hx of wisdom tooth extraction Hx of prior ablation treatment Family History Father Angina pectoris Thyroid disorder Grandfather Angina pectoris Heart disease CABG Grandfather Skin cancer Grandmother CVA (cerebral vascular accident) Diabetes Hypertension Hyperlipidemia Mother Hyperlipidemia Social History household members: spouse current occupational status: employed 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 Patient reports that she has been doing well with the use of Vyvanse. Patient reports that she has been having some symptoms of tachycardia intermittently, but this has been happening even when she doesn't take the Vyvanse. Had similar symptoms 10 years ago so does not believe related to stimulant use. Does feel her RLS has been worsening in recent past, and tends to prevent her from getting to sleep. Blood pressure has been stable. Mood has been largely stable. Does continue to have some intermittent tics, largely in her face. Does find them tolerable. Taking Vyvanse about 4 days per week and does not take on days where she does not work or have school. This tele-medicine visit was performed via audio/video technology. Review of Systems Constitutional Denies: fever(s), chills or change in weight Eyes Denies: change in vision or blurry vision Ears, Nose, Mouth, Throat Denies: throat pain, neck pain or change in hearing Cardiovascular Denies: chest pain, palpitations or dyspnea Respiratory Denies: dyspnea, cough or wheezing Gastrointestinal Reports: nausea; Denies: abdominal pain, vomiting, diarrhea or constipation Genitourinary Denies: dysuria or urinary frequency Musculoskeletal Reports: extremity pain (Restless legs); Denies: back pain, neck pain, joint pain or muscle weakness Integumentary/Breast Denies: rash or new lesions Neurological Denies: headache(s), dizziness or confusion Psychiatric Reports: difficulty concentrating Endocrine Denies: excessive sweating Hematologic/Lymphatic Denies: easy bruising or easy bleeding Allergic/Immunologic Denies: wheezing Exam Mental Status Exam - Psych Appearance casually dressed Attitude cooperative and calm Activity/Motor Behavior MSE activity/motor behavior finding no adventitious movements Speech regular rate, regular volume and regular prosody Mood OK Affect full range Thought Process linear, logical and coherent Thought Content no delusions and no hallucinations Suicidal Ideation none Homicidal Ideation none Attention intact Concentration intact Sensorium/Orientation awake, alert and oriented x3 Memory/Cognition other (appropriate for stated age) Insight fair Judgement good Assessment Plan Assessment Plan (1) ADHD: Qualifiers: Attention deficit-hyperactivity disorder type: unspecified Qualified Code(s): F90.9 - Attention-deficit hyperactivity disorder, unspecified type Plan: - Continue on Vyvanse 30 mg every day ???Patient was informed about stimulant side effects including but not limited to tics, decrease in appetite, anxiety psychosis, increase in heart rate and BP, arrhythmia and stroke.??? Patient was informed abo (more content not included)... Normal [facility] Basic Metabolic Profile (BMP )on 06-05-2024 BUN/CRE 9.3 RATIO Low 10-20 [facility] Comment on above: Performed By: #### L 501.5200, L500.2500, L501.9520 ####[facility] [address] [place], [address] Calcium [Mass/Vol] 9.4 mg/dL Normal 7.6-11.0 [facility] Comment on above: Performed By: #### L 501.5200, L500.2500, L501.9520 ####[facility] [address] [place], [address] Chloride [Moles/Vol] 107 mmol/L Normal 98-108 [facility] Comment on above: Performed By: #### L 501.5200, L500.2500, L501.9520 ####[facility] [address] [place], [address] CO2 [Moles/Vol] 20.0 mmol/L Low 21.0-32.0 [facility] Comment on above: Performed By: #### L 501.5200, L500.2500, [id number] ####[facility] [address] [place], [address] Creatinine [Mass/Vol] 0.77 mg/dL Normal 0.70-1.20 [facility] Comment on above: Performed By: #### L 501.5200, L500.2500, [id number] ####[facility] [address] [place], [address] GAP 11 Normal 5-15 [facility] Comment on above: Performed By: #### L 501.5200, L500.2500, L501.9520 ####[facility] [address] [place], [address] GFR/1.73 sq M.predicted among non-blacks MDRD (S/P/Bld) [Vol rate/Area] 106 mL/min/{1.73_m2} Normal >60 [facility] Comment on above: Result Comment: mL/m in/1.73m2 CKD-EPI Creatinine Equation (2020) Performed By: #### L 501.5200, L500.2500, L501.9520 ####[facility] [address] [place], [address] Glucose [Mass/Vol] 95 mg/dL Normal 70-99 [facility] Comment on above: Performed By: #### L 501.5200, L500.2500, [id number] ####[facility] [address] [place], [address] Potassium [Moles/Vol] 4.2 mmol/L Normal 3.3-5.1 [facility] Comment on above: Performed By: #### L 501.5200, L500.2500, [id number] ####[facility] [address] [place], [address] Sodium [Moles/Vol] 138 mmol/L Normal 133-145 [facility] Comment on above: Performed By: #### L 501.5200, L500.2500, L501.9520 ####[facility] [address] [place], [address] Urea nitrogen [Mass/Vol] 7 mg/dL Normal 4-19 [facility] Comment on above: Performed By: #### L 501.5200, L500.2500, [id number] ####[facility] [address] [place], [address] Magnesiumon 06-05-2024 Magnesium [Mass/Vol] 2.0 mg/dL Normal 1.5-2.2 [facility] Comment on above: Performed By: #### L 501.5200, L500.2500, L501.9520 ####[facility] [address] [place], [address] Thyroid Stim Hormone (TSH)on 06-05-2024 TSH 1.800 uIU/mL Normal 0.300-4.200 [facility] Comment on above: Performed By: #### L 501.5200, L500.2500, [id number] ####[facility] [address] [place], [address] MR/BMS.BPon 05-10-2024 MR/BMS.BP [address], [address] [place] [address] OFFICE VISIT Date of Service: 05/10/24 MR#: [id number] Acct: [id number] Name: DOMINGA GONZÁLES Rep #: [id number] : 1990 Provider: Dr. Serge Barker se, DO Age/Sex: 33/F Location: [facility] [place].[facility] Status: Signed Intake Vital Signs 04/26/24 14:12 05/10/24 07:30 Height 5 ft 4 in 5 ft 4 in Weight: 162 lb BMI 27.8 BP 123/80 H 121/78 H Blood Pressure Location Lt brachial Position Sitting Respiration 18 Pulse 79 79 Pulse Source Monitor Pulse Oximetry (%) 98 Oxygen Delivery Method room air BP Intake Visit Reasons: follow up/med chance Inletter Required: No Accompanied by: Self Is patient in pain?: No Allergies No Known Allergies Allergy (Verified 05/10/24 07:31) Medications ???Medication ???Instructions ???Recorded ???Confirmed ???Type melatonin 10 mg tablet 10 mg PO HS PRN 08/11/22 05/10/24 History albuterol sulfate 90 mcg/actuation 2 puff inhalation Q4H PRN 05/10/24 Rx aerosol inhaler (Ventolin HFA) shortness of breath or wheezing #18 grams lorazepam 1 mg tablet 0.5 - 1 mg (0.5 - 1 x 1 mg) PO 05/10/24 Rx DAILY PRN anxiety #30 tabs valacyclovir 1 gram tablet 2,000 mg PO BID PRN 11/30/2305/10 History (Valtrex) magnesium 250 mg tablet 250 mg PO QDAY 12/16/23 05/10/24 H istory ondansetron 8 mg disintegrating 8 mg PO Q4H PRN nausea and 5 05/10/24 Rx tablet vomiting #30 tabs vilazodone 40 mg tablet 40 mg PO DAILY 90 days #90 tabs 05/10/24 Rx ropinirole 0.25 mg tablet 0.25 mg PO QHS PRN restless leg(s) 03/22/24 05/10/24 Rx #30 tabs cholecalciferol (vitamin D3) 125 125 mcg PO QDAY 04/17/24 05/10/24 History mcg (5,000 unit) capsule ferrous fumarate 325 mg (106 mg 325 mg PO QDAY 04/17/24 05/10/24 H istory iron) tablet hydroxyzine HCl 50 mg tablet 50 mg PO QHS PRN sleep #30 tabs 05/10/24 Rx dextroamphetamine-amph etamine 10 10 mg PO BID 30 days #60 tabs 04/1505/10/24 Rx mg tablet (Adderall) gabapentin 300 mg capsule 300 mg PO QHS #90 caps 05/10/24 Rx PFSH Medical History Thyroid disorder ADHD Depression, unspecified LISA (generalized anxiety disorder) TIKA (iron deficiency anemia) Restless leg syndrome Wears glasses Anxiety Alcohol use Gastric reflux Non-smoker Asthma Shortness of breath on exertion History of echocardiogram History of stress test On Accutane therapy Mitral valve prolapse Bicuspid aortic valve Surgical History Hx of wisdom tooth extraction Hx of prior ablation treatment Family History Father Angina pectoris Thyroid disorder Grandfather Angina pectoris Heart disease CABG Grandfather Skin cancer Grandmother CVA (cerebral vascular accident) Diabetes Hypertension Hyperlipidemia Mother Hyperlipidemia Social History household members: spouse current occupational status: employed current occupation: [employer] Smoking Status: Never smoker alcohol intake: current alcohol intake frequency: holidays/special occasions only substance use type: does not use what type of physical activity do you participate in: other details: Cardio frequency: 3-4 times per week do you feel safe at home: Yes additional social history: - Joel HPI History of Present Illness History provided by: patient HPI: Dominga Gonzáles is a 33 year old female who presents today for follow up evaluation. Patient reports that she has been doing well with vyvanse however has had some side effects. Does have motor tics including grimacing and toe crunching but has been fairly tolerable to this point. Mood has been overall good. Does have some intermittent irritability but again has not been severe. Denies any significant problems with sleep. Feels like school work has been doing largely better. Denies any SI/HI or AVH. Review of Systems Constitutional Denies: fever(s), chills or change in weight Eyes Denies: change in vision or blurry vision Ears, Nose, Mouth, Throat Denies: throat pain, neck pain or change in hearing Cardiovascular Denies: chest pain, palpitations or dyspnea Respiratory Denies: dyspnea, cough or wheezing Gastrointestinal Reports: nausea; Denies: abdominal pain, vomiting, diarrhea or constipation Genitourinary Denies: dysuria or urinary frequency Musculoskeletal Reports: extremity pain (Largely secondary to scrunching toes); Denies: back pain, neck pain, joint pain or muscle weakness Integumentary/Breast Denies: rash or new lesions (more content not included)... Normal [facility] Gastroenterology Visit Repor ton 04-26-2024 Gastroenterology Visit Report [facility] [address] [place] [address] OFFICE VISIT Date of Service: 04/26/24 MR#: [id number] Acct: [id number] Name: DOMINGA GONZÁLES Rep #: [id number] : 1990 Provider: LIZZY ye Age/Sex: 33/F Location: [facility] [place] [facility] Status: Signed Intake Vital Signs 04/17/24 11:28 04/25/24 15:11 04/26/24 14:12 Height 5 ft 4 in 5 ft 4 in 5 ft 4 in Weight: 163 lb 4 oz 162 lb BMI 28.0 27.8 BP 124/68 H 123/80 H Blood Pressure Location Rt brachial Position Sitting Respiration 14 18 Pulse 102 H 79 Pulse Source Monitor Temp 98.3 F Temp Source Temporal Pulse Oximetry (%) 97 98 Oxygen Delivery Method room air room air Intake Visit Reasons: Abdominal complaints Chief Complaint: pain Inletter Required: No Is patient in pain?: No Allergies No Known Allergies Allergy (Verified 04/26/24 14:08) Medications ???Medication ???Instructions ???Recorded ???Confirmed ???Type melatonin 10 mg tablet 10 mg PO HS PRN 08/11/22 04/26/24 History albuterol sulfate 90 mcg/actuation 2 puff inhalation Q4H PRN 04/26/24 Rx aerosol inhaler (Ventolin HFA) shortness of breath or wheezing #18 grams lorazepam 1 mg tablet 0.5 - 1 mg (0.5 - 1 x 1 mg) PO 04/26/24 Rx DAILY PRN anxiety #30 tabs valacyclovir 1 gram tablet 2,000 mg PO BID PRN 11/30/2304/26 History (Valtrex) magnesium 250 mg tablet 250 mg PO QDAY 12/16/23 04/26/24 H istory ondansetron 8 mg disintegrating 8 mg PO Q4H PRN nausea and 5 04/26/24 Rx tablet vomiting #30 tabs gabapentin 300 mg capsule 300 mg PO QHS #30 caps 03/08/24 Rx vilazodone 40 mg tablet 40 mg PO DAILY 90 days #90 tabs 04/26/24 Rx ropinirole 0.25 mg tablet 0.25 mg PO QHS PRN restless leg(s) 03/22/24 04/26/24 Rx #30 tabs lisdexamfetamine 30 mg capsule 30 mg PO QAM 30 days #30 caps 03/05/0804/26/24 Rx cholecalciferol (vitamin D3) 125 125 mcg PO QDAY 04/17/24 04/26/24 History mcg (5,000 unit) capsule ferrous fumarate 325 mg (106 mg 325 mg PO QDAY 04/17/24 04/26/24 H istory iron) tablet hydroxyzine HCl 50 mg tablet 50 mg PO QHS PRN sleep #30 tabs 04/26/24 Rx vonoprazan 10 mg tablet (Voquezna) 10 mg PO QDAY #30 tabs 04/26/24 04/26/24 Rx PFSH Medical History Thyroid disorder ADHD Depression, unspecified LISA (generalized anxiety disorder) TIKA (iron deficiency anemia) Restless leg syndrome Wears glasses Anxiety Alcohol use Gastric reflux Non-smoker Asthma Shortness of breath on exertion History of echocardiogram History of stress test On Accutane therapy Mitral valve prolapse Bicuspid aortic valve Surgical History Hx of wisdom tooth extraction Hx of prior ablation treatment Family History Father Angina pectoris Thyroid disorder Grandfather Angina pectoris Heart disease CABG Grandfather Skin cancer Grandmother CVA (cerebral vascular accident) Diabetes Hypertension Hyperlipidemia Mother Hyperlipidemia Social History household members: spouse current occupational status: employed 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 [employer] Smoking Status: Never smoker alcohol intake: current alcohol intake frequency: holidays/special occasions only substance use type: does not use what type of physical activity do you participate in: other details: Cardio frequency: 3-4 times per week do you feel safe at home: Yes additional social history: - Joel HPI HPI Chief Complaint: pain Details: DOMINGA GONZÁLES, is a 33 F who presents to the office today for It was recommended she swap Dexilant for Nexium, add cholestyramine Qam and amitriptyline at HS GES was normal 10/14/2021 Esophagram 10/2021 normal 08/19/21 EGD - Z-line irregular, 38 cm from the incisors. Biopsied. - A single gastric polyp. Resected and retrieved. - Normal first portion of the duodenum. - The ALEJANDRE pH capsule was positioned 38 cm from the incisors, which was 6 cm proximal to the GE junction. MICROSCOPIC DIAGNOSIS A. Distal esophagus, biopsy: Fragments of gastroesophageal mucosa with chronic inflammation. Intestinal metaplasia (goblet cell metaplasia) not identified. See comment. B. Distal esophagus polyp, biopsy: A fragment of gastric mucosa with mild chronic inflammation. Intestinal metaplasia (goblet cell metaplasia) not identified. See comment Alejandre pH study is abnormal, all of the metrics are abnormal including acid exposure time, DeMeester score, symptom index, and symptom association probability. (more content not included)... Normal [facility] Abdomen/Pelvis WITH Contrast on 04-22-2024 Abdomen/Pelvis WITH Contrast [facility] Imaging Services [address] [place] [address] [id number] Abdomen/Pelvis WITH Contrast MR#: [id number] Acct: [id number] Name: DOMINGA GONZÁLES Rep #: [id number] : 1990 F 33 From: Andrea Fonseca PCP: Dr. Maria Teresa Jolly MD Status: REG CLI Study: Abdomen/Pelvis WITH Contrast Date of Exam: 11/08 Exam# [id number] Ordering Dr: Maria Teresa Jolly MD PROCEDURE: CT abdomen pelvis with IV contrast REASON FOR EXAM: Epigastric pain TECHNIQUE: Multiple contiguous axial images through the abdomen and pelvis were obtained after the administration of intravenous contrast. Two-dimensional coronal and sagittal reformatted images were reconstructed. Low-dose imaging technique was utilized. COMPARISON: 05/15/2020 FINDINGS: Lung bases are clear. Liver, spleen, pancreas and adrenal glands are intact. Gallbladder is satisfactory. No significant biliary ductal dilation. Kidneys enhance symmetrically. No suspicious renal mass, calculi or hydronephrosis. Urinary bladder is intact. Uterus and ovaries are present. No bowel obstruction, focal bowel wall thickening or significant perienteric inflammation. Normal appendix. No pelvic free fluid. No free air. No abdominal aortic aneurysm or suspicious adenopathy. Superficial soft tissues are within normal limits. No acute osseous abnormality. CT/Abdomen/Pelvis WITH Contrast IMPRESSION: No acute process. One or more dose reduction techniques were used (e.g., Automated exposure control, adjustment of the mA and/or kV according to patient size, use of iterative reconstruction technique). Reading Location: [facility] CC: Dr. Maria Teresa Jolly MD Recovery Coach: Signed Normal [facility] H. PYLORI STOOL AGon 025 H PYLORI STL AG Negative Normal Negative [facility] Comment on above: Result Comment: Perf ormed at: [facility] [id number] Job Honer: Pedro Garduno PhD, Phone: [phone] Performed By: #### L 3100.1950 ####[facility] [address] [place], [address] CBC W/Diff, Automatedon 03-0 Absolute Lymph 0.96 X10 3/uL Normal 0.83-4.51 [facility] Comment on above: Performed By: #### L 500.4050, L100.0100 ####[facility] [address] [place], [address] Absolute Neut 6.7 X10 3/uL Normal 2.0-7.7 [facility] Comment on above: Performed By: #### L 500.4050, L100.0100 ####[facility] [address] [place], [address] Basophils/100 WBC (Bld) 0.7 % Normal 0-1 [facility] Comment on above: Performed By: #### L 500.4050, L100.0100 ####[facility] [address] [place], [address] Eosinophils/100 WBC (Bld) 1.9 % Normal 0-5 [facility] Comment on above: Performed By: #### L 500.4050, L100.0100 ####[facility] [address] [place], [address] Erythrocyte distribution width (RBC) [Ratio] 11.9 % Normal 11.6-14.6 [facility] Comment on above: Performed By: #### L 500.4050, L100.0100 ####[facility] [address] [place], [address] Hematocrit (Bld) [Volume fraction] 38.2 % Normal 37-47 [facility] Comment on above: Performed By: #### L 500.4050, L100.0100 ####[facility] [address] [place], [address] Hemoglobin (Bld) [Mass/Vol] 12.8 g/dL Normal 12.0-15.0 [facility] Comment on above: Performed By: #### L 500.4050, L100.0100 ####[facility] [address] [place], [address] IG% 0.400 Normal 0.0-0.9 [facility] Comment on above: Result Comment: IG% - Immature Granulocytes (promyelocytes, myelocytes and metamyelocytes) > 1% indicates that a LEFT SHIFT is Present. Performed By: #### L 500.4050, L100.0100 ####[facility] [address] [place], [address] Lymphocytes/100 WBC (Bld) 11.2 % Low 19-41 [facility] Comment on above: Performed By: #### L 500.4050, L100.0100 ####[facility] [address] [place], [address] MCH (RBC) [Entitic mass] 29.4 pg Normal 27.0-32.0 [facility] Comment on above: Performed By: #### L 500.4050, L100.0100 ####[facility] [address] [place], [address] MCHC (RBC) [Mass/Vol] 33.5 g/dL Normal 32-36 [facility] Comment on above: Performed By: #### L 500.4050, L100.0100 ####[facility] [address] [place], [address] MCV (RBC) [Entitic vol] 87.6 fL Normal 81-99 [facility] Comment on above: Performed By: #### L 500.4050, L100.0100 ####[facility] [address] [place], [address] Monocytes/100 WBC (Bld) 7.6 % Normal 0-10 [facility] Comment on above: Performed By: #### L 500.4050, L100.0100 ####[facility] [address] [place], [address] Neutrophils/100 WBC (Bld) 78.2 % High 47-70 [facility] Comment on above: Performed By: #### L 500.4050, L100.0100 ####[facility] [address] [place], [address] Nucleated RBC (Bld) [#/Vol] 0 10*3/uL Normal 0-5 [facility] Comment on above: Performed By: #### L 500.4050, L100.0100 ####[facility] [address] [place], [address] Platelet mean volume (Bld) [Entitic vol] 9.5 fL Normal 6.2-12.0 [facility] Comment on above: Performed By: #### L 500.4050, L100.0100 ####[facility] [address] [place], [address] Platelets (Bld) [#/Vol] 375 10*3/uL Normal 150-450 [facility] Comment on above: Performed By: #### L 500.4050, L100.0100 ####[facility] [address] [place], [address] RBC (Bld) [#/Vol] 4.36 10*6/uL Normal 4.2-5.4 [facility] Comment on above: Performed By: #### L 500.4050, L100.0100 ####[facility] [address] [place], [address] RDW SD 38.3 fl Normal 35.1-43.9 [facility] Comment on above: Performed By: #### L 500.4050, L100.0100 ####[facility] [address] [place], [address] WBC (Bld) [#/Vol] 8.5 10*3/uL Normal 4.4-11.0 [facility] Comment on above: Performed By: #### L 500.4050, L100.0100 ####[facility] [address] [place], [address] Comprehensive Metabolic Prof ilon 04-17-2024 Albumin [Mass/Vol] 4.3 g/dL Normal 3.5-5.0 [facility] Comment on above: Performed By: #### L 500.4050, L100.0100 ####[facility] [address] [place], [address] Albumin/Globulin [Mass ratio] 1.6 {ratio} Normal 0.9-2.4 [facility] Comment on above: Performed By: #### L 500.4050, L100.0100 ####[facility] [address] [place], [address] ALK PHOS 86 U/L Normal 35-104 [facility] Comment on above: Performed By: #### L 500.4050, L100.0100 ####[facility] [address] [place], [address] ALT [Catalytic activity/Vol] 13 U/L Normal <=34 [facility] Comment on above: Performed By: #### L 500.4050, L100.0100 ####[facility] [address] [place], [address] AST [Catalytic activity/Vol] 20 U/L Normal <=31 [facility] Comment on above: Performed By: #### L 500.4050, L100.0100 ####[facility] [address] [place], [address] Bilirubin [Mass/Vol] 0.37 mg/dL Normal 0.00-1.30 [facility] Comment on above: Performed By: #### L 500.4050, L100.0100 ####[facility] [address] [place], [address] BUN/CRE 11.8 RATIO Normal 10-20 [facility] Comment on above: Performed By: #### L 500.4050, L100.0100 ####[facility] [address] [place], [address] Calcium [Mass/Vol] 9.0 mg/dL Normal 7.6-11.0 [facility] Comment on above: Performed By: #### L 500.4050, L100.0100 ####[facility] [address] [place], [address] Chloride [Moles/Vol] 106 mmol/L Normal 98-108 [facility] Comment on above: Performed By: #### L 500.4050, L100.0100 ####[facility] [address] [place], [address] CO2 [Moles/Vol] 22.3 mmol/L Normal 21.0-32.0 [facility] Comment on above: Performed By: #### L 500.4050, L100.0100 ####[facility] [address] [place], [address] Creatinine [Mass/Vol] 0.72 mg/dL Normal 0.70-1.20 [facility] Comment on above: Performed By: #### L 500.4050, L100.0100 ####[facility] [address] [place], [address] GAP 11 Normal 5-15 [facility] Comment on above: Performed By: #### L 500.4050, L100.0100 ####[facility] [address] [place], [address] GFR/1.73 sq M.predicted among non-blacks MDRD (S/P/Bld) [Vol rate/Area] 114 mL/min/{1.73_m2} Normal >60 [facility] Comment on above: Result Comment: mL/m in/1.73m2 CKD-EPI Creatinine Equation (2020) Performed By: #### L 500.4050, L100.0100 ####[facility] [address] [place], [address] Globulin (S) [Mass/Vol] 2.7 g/dL Normal 2.2-4.2 [facility] Comment on above: Performed By: #### L 500.4050, L100.0100 ####[facility] [address] [place], [address] Glucose [Mass/Vol] 89 mg/dL Normal 70-99 [facility] Comment on above: Performed By: #### L 500.4050, L100.0100 ####[facility] [address] [place], [address] Potassium [Moles/Vol] 4.1 mmol/L Normal 3.3-5.1 [facility] Comment on above: Performed By: #### L 500.4050, L100.0100 ####[facility] [address] [place], [address] Sodium [Moles/Vol] 140 mmol/L Normal 133-145 [facility] Comment on above: Performed By: #### L 500.4050, L100.0100 ####[facility] [address] [place], [address] T PROT 7.0 g/dL Normal 5.9-8.4 [facility] Comment on above: Performed By: #### L 500.4050, L100.0100 ####[facility] [address] [place], [address] Urea nitrogen [Mass/Vol] 9 mg/dL Normal 4-19 [facility] Comment on above: Performed By: #### L 500.4050, L100.0100 ####[facility] [address] [place], [address] Internal [facility] Internal Medicine Office Visit [facility] [address] [place] [address] [place] [address] OFFICE VISIT Date of Service: 04/17/24 MR#: [id number] Acct: [id number] Name: DOMINGA GONZÁLES Rep #: [id number] : 1990 Provider: Dr. Maria Teresa patterson MD Age/Sex: 33/F Location: [facility] [place] [facility] Status: Signed Intake Vital Signs 03/22/24 13:09 04/17/24 11:28 Height 5 ft 4 in 5 ft 4 in Weight: 163 lb 4 oz BMI 28.0 BP 124/68 H Blood Pressure Location Rt brachial Position Sitting Respiration 14 Pulse 102 H Pulse Source Monitor Temp 98.3 F Temp Source Temporal Pulse Oximetry (%) 97 Oxygen Delivery Method room air Intake Visit Reasons: abdominal and back pain Chief Complaint: pain Inletter Required: No Accompanied by: Self Is patient in pain?: Yes (abdominal radiating towards back ) Pain scale (1-10): 3 Allergies No Known Allergies Allergy (Verified 04/17/24 11:24) Medications ???Medication ???Instructions ???Recorded ???Confirmed ???Type melatonin 10 mg tablet 10 mg PO HS PRN 08/11/22 04/17/24 History albuterol sulfate 90 mcg/actuation 2 puff inhalation Q4H PRN 04/17/24 Rx aerosol inhaler (Ventolin HFA) shortness of breath or wheezing #18 grams lorazepam 1 mg tablet 0.5 - 1 mg (0.5 - 1 x 1 mg) PO 04/17/24 Rx DAILY PRN anxiety #30 tabs valacyclovir 1 gram tablet 2,000 mg PO BID PRN 11/30/2304/17 History (Valtrex) magnesium 250 mg tablet 250 mg PO QDAY 12/16/23 04/17/24 H istory hydroxyzine HCl 50 mg tablet 50 mg PO QHS PRN sleep #30 tabs 04/17/24 Rx ondansetron 8 mg disintegrating 8 mg PO Q4H PRN nausea and 5 04/17/24 Rx tablet vomiting #30 tabs esomeprazole magnesium 40 mg 40 mg PO QAM #90 caps 02/27/2406/08 Rx capsule,delayed release gabapentin 300 mg capsule 300 mg PO QHS #30 caps 03/08/24 Rx vilazodone 40 mg tablet 40 mg PO DAILY 90 days #90 tabs 04/17/24 Rx ropinirole 0.25 mg tablet 0.25 mg PO QHS PRN restless leg(s) 03/22/24 04/17/24 Rx #30 tabs lisdexamfetamine 30 mg capsule 30 mg PO QAM 30 days #30 caps 05/0804/17/24 Rx cholecalciferol (vitamin D3) 125 125 mcg PO QDAY 04/17/24 04/17/24 History mcg (5,000 unit) capsule ferrous fumarate 325 mg (106 mg 325 mg PO QDAY 04/17/24 04/17/24 H istory iron) tablet Have you fallen in the past year?: No [facility] Medical History Thyroid disorder ADHD Depression, unspecified LISA (generalized anxiety disorder) TIKA (iron deficiency anemia) Restless leg syndrome Wears glasses Anxiety Alcohol use Gastric reflux Non-smoker Asthma Shortness of breath on exertion History of echocardiogram History of stress test On Accutane therapy Mitral valve prolapse Bicuspid aortic valve Surgical History Hx of wisdom tooth extraction Hx of prior ablation treatment Family History Father Angina pectoris Thyroid disorder Grandfather Angina pectoris Heart disease CABG Grandfather Skin cancer Grandmother CVA (cerebral vascular accident) Diabetes Hypertension Hyperlipidemia Mother Hyperlipidemia Social History household members: spouse current occupational status: employed 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, [employer] Smoking Status: Never smoker alcohol intake: current alcohol intake frequency: holidays/special occasions only substance use type: does not use what type of physical activity do you participate in: other details: Cardio frequency: 3-4 times per week do you feel safe at home: Yes additional social history: - Joel HPI HPI Chief Complaint: pain Details: DOMINGA GONZÁLES, is a 33 F who presents to the office today for an acute visit. She has concerns about abdominal pain and back pain. She reports that she has been having abdominal pain in her epigastric area which seems to radiate across both sides and sometimes into her back. She reports it has been going on for a couple of weeks. She states it has been intermittent, but seems to be getting more frequent. She reports it feels like a dull aching pain with an occasional pulsing. She rates it 3/10 at its worst. She reports some mild pain in the epigastric region today. She reports she has tried gasX, tylenol and ibuprofen which hasn't helped at all. She states it doesn't feel like indigestion and she takes nexium every day. She reports she started taking an iron supplement and stool softener since she was last seen. She denies any other changes. She reports after eating, she will feel a pain, but states other times it is unrelated to eating. She denies any nausea or vomiting. (more content not included)... Normal [facility] Basic Metabolic Profile (BMP )on 03-22-2024 BUN/CRE 9.6 RATIO Low 10-20 [facility] Comment on above: Performed By: #### L 100.0100, L500.2500 #### [facility] [address] [place], [address] CA,Total 9.2 mg/dL Normal 8.5-10.1 [facility] Comment on above: Performed By: #### L 100.0100, L500.2500 #### [facility] [address] [place], [address] Chloride [Moles/Vol] 107 mmol/L Normal 98-107 [facility] Comment on above: Performed By: #### L 100.0100, L500.2500 #### [facility] [address] [place], [address] CO2 [Moles/Vol] 27.0 mmol/L Normal 21.0-32.0 [facility] Comment on above: Performed By: #### L 100.0100, L500.2500 #### [facility] [address] [place], [address] Creatinine [Mass/Vol] 0.94 mg/dL Normal 0.55-1.02 [facility] Comment on above: Result Comment: The validity of the calculated GFR GFRAA in patients over 70 years has not been determined. Clinical correlation is essential. Performed By: #### L 100.0100, L500.2500 #### [facility] [address] [place], [address] EST GFR - AA 89 mL/min Normal >60 [facility] Comment on above: Result Comment: Afri can Cuban GFR Calc Performed By: #### L 100.0100, L500.2500 #### [facility] [address] [place], [address] GAP 5 Normal 5-15 [facility] Comment on above: Performed By: #### L 100.0100, L500.2500 #### [facility] [address] [place], [address] GFR/1.73 sq M.predicted among non-blacks MDRD (S/P/Bld) [Vol rate/Area] 73 mL/min/{1.73_m2} Normal >60 [facility] Comment on above: Result Comment: Non- GFR Calc Performed By: #### L 100.0100, L500.2500 #### [facility] [address] [place], [address] Glucose [Mass/Vol] 81 mg/dL Normal 74-106 [facility] Comment on above: Performed By: #### L 100.0100, L500.2500 #### [facility] [address] [place], [address] Potassium [Moles/Vol] 4.4 mmol/L Normal 3.5-5.1 [facility] Comment on above: Performed By: #### L 100.0100, L500.2500 #### [facility] [address] [place], [address] Sodium [Moles/Vol] 138 mmol/L Normal 136-145 [facility] Comment on above: Performed By: #### L 100.0100, L500.2500 #### [facility] [address] [place], [address] Urea nitrogen [Mass/Vol] 9 mg/dL Normal 7-18 [facility] Comment on above: Performed By: #### L 100.0100, L500.2500 #### [facility] [address] [place], [address] CBC W/Diff, Automatedon 02-0 6-2024 Absolute Lymph 1.36 X10 3/uL Normal 0.83-4.51 [facility] Comment on above: Performed By: #### L 100.0100, L500.2500 #### [facility] [address] [place], [address] Absolute Neut 6.6 X10 3/uL Normal 2.0-7.7 [facility] Comment on above: Performed By: #### L 100.0100, L500.2500 #### [facility] [address] [place], [address] Basophils/100 WBC (Bld) 0.8 % Normal 0-1 [facility] Comment on above: Performed By: #### L 100.0100, L500.2500 #### [facility] [address] [place], [address] Eosinophils/100 WBC (Bld) 3.5 % Normal 0-5 [facility] Comment on above: Performed By: #### L 100.0100, L500.2500 #### [facility] [address] [place], [address] Erythrocyte distribution width (RBC) [Ratio] 11.8 % Normal 11.6-14.6 [facility] Comment on above: Performed By: #### L 100.0100, L500.2500 #### [facility] [address] [place], [address] Hematocrit (Bld) [Volume fraction] 43.7 % Normal 37-47 [facility] Comment on above: Performed By: #### L 100.0100, L500.2500 #### [facility] [address] [place], [address] Hemoglobin (Bld) [Mass/Vol] 14.1 g/dL Normal 12.0-15.0 [facility] Comment on above: Performed By: #### L 100.0100, L500.2500 #### [facility] [address] [place], [address] IG% 0.400 Normal 0.0-0.9 [facility] Comment on above: Result Comment: IG% - Immature Granulocytes (promyelocytes, myelocytes and metamyelocytes) > 1% indicates that a LEFT SHIFT is Present. Performed By: #### L 100.0100, L500.2500 #### [facility] [address] [place], [address] Lymphocytes/100 WBC (Bld) 14.7 % Low 19-41 [facility] Comment on above: Performed By: #### L 100.0100, L500.2500 #### [facility] [address] [place], [address] MCH (RBC) [Entitic mass] 28.9 pg Normal 27.0-32.0 [facility] Comment on above: Performed By: #### L 100.0100, L500.2500 #### [facility] [address] [place], [address] MCHC (RBC) [Mass/Vol] 32.3 g/dL Normal 32-36 [facility] Comment on above: Performed By: #### L 100.0100, L500.2500 #### [facility] [address] [place], [address] MCV (RBC) [Entitic vol] 89.5 fL Normal 81-99 [facility] Comment on above: Performed By: #### L 100.0100, L500.2500 #### [facility] [address] [place], [address] Monocytes/100 WBC (Bld) 9.2 % Normal 0-10 [facility] Comment on above: Performed By: #### L 100.0100, L500.2500 #### [facility] [address] [place], [address] Neutrophils/100 WBC (Bld) 71.4 % High 47-70 [facility] Comment on above: Performed By: #### L 100.0100, L500.2500 #### [facility] [address] [place], [address] Nucleated RBC (Bld) [#/Vol] 0 10*3/uL Normal 0-5 [facility] Comment on above: Performed By: #### L 100.0100, L500.2500 #### [facility] [address] [place], [address] Platelet mean volume (Bld) [Entitic vol] 9.8 fL Normal 6.2-12.0 [facility] Comment on above: Performed By: #### L 100.0100, L500.2500 #### [facility] [address] [place], [address] Platelets (Bld) [#/Vol] 431 10*3/uL Normal 150-450 [facility] Comment on above: Performed By: #### L 100.0100, L500.2500 #### [facility] [address] [place], [address] RBC (Bld) [#/Vol] 4.88 10*6/uL Normal 4.2-5.4 [facility] Comment on above: Performed By: #### L 100.0100, L500.2500 #### [facility] [address] [place], [address] RDW SD 38.5 fl Normal 35.1-43.9 [facility] Comment on above: Performed By: #### L 100.0100, L500.2500 #### [facility] [address] [place], [address] WBC (Bld) [#/Vol] 9.3 10*3/uL Normal 4.4-11.0 [facility] Comment on above: Performed By: #### L 100.0100, L500.2500 #### [facility] [address] [place], [address] Internal Medicine Office Vis iton 03-21-2024 Internal Medicine Office Visit [facility] [address] [place] [address] OFFICE VISIT Date of Service: 03/22/24 MR#: [id number] Acct: [id number] Name: DOMINGA GONZÁLES Rep #: [id number] : 1990 Provider: Dr. Maria Teresa patterson MD Age/Sex: 33/F Location: [facility] [place] [facility] Status: Signed Intake Vital Signs 12/16/23 14:33 03/08/24 12:52 03/22/24 13:09 Height 5 ft 4 in 5 ft 4 in 5 ft 4 in Weight: 163 lb BMI 27.9 BP 110/72 Blood Pressure Location Rt brachial Position Sitting Respiration 16 Pulse 76 Pulse Source Monitor Temp 98.6 F Temp Source Temporal Pulse Oximetry (%) 98 Oxygen Delivery Method room air Intake Visit Reasons: EST NEW PT - EMS PT Chief Complaint: ESTABLISH CARE Is patient in pain?: No Allergies No Known Allergies Allergy (Verified 03/22/24 13:07) Medications ???Medication ???Instructions ???Recorded ???Confirmed ???Type melatonin 10 mg tablet 10 mg PO HS PRN 08/11/22 03/22/24 History ropinirole 0.25 mg tablet 0.25 mg PO QHS PRN restless leg(s) 01/25/23 03/22/24 Rx #30 tabs albuterol sulfate 90 mcg/actuation 2 puff inhalation Q4H PRN 03/22/24 Rx aerosol inhaler (Ventolin HFA) shortness of breath or wheezing #18 grams lorazepam 1 mg tablet 0.5 - 1 mg (0.5 - 1 x 1 mg) PO 03/22/24 Rx DAILY PRN anxiety #30 tabs valacyclovir 1 gram tablet 2,000 mg PO BID PRN 11/30/2303/22 History (Valtrex) magnesium 250 mg tablet 250 mg PO QDAY 12/16/23 03/22/24 H istory hydroxyzine HCl 50 mg tablet 50 mg PO QHS PRN sleep #30 tabs 03/22/24 Rx ondansetron 8 mg disintegrating 8 mg PO Q4H PRN nausea and 5 03/22/24 Rx tablet vomiting #30 tabs esomeprazole magnesium 40 mg 40 mg PO QAM #90 caps 02/27/2408/08 Rx capsule,delayed release gabapentin 300 mg capsule 300 mg PO QHS #30 caps 03/08/24 Rx lisdexamfetamine 30 mg capsule 30 mg PO QAM 30 days #30 caps 02/1503/22/24 Rx vilazodone 40 mg tablet 40 mg PO DAILY 90 days #90 tabs 03/22/24 Rx calcium 600 mg (as tab PO DAILY 03/22/24 03/22/24 His tory carbonate)-vitamin D3 25 mcg (1,000 unit) tablet PFSH Medical History (Updated 03/22/24 @ 16:[address] Maria Teresa Jolly MD) Thyroid disorder ADHD Depression, unspecified LISA (generalized anxiety disorder) TIKA (iron deficiency anemia) Restless leg syndrome Wears glasses Anxiety Alcohol use Gastric reflux Non-smoker Asthma Shortness of breath on exertion History of echocardiogram History of stress test On Accutane therapy Mitral valve prolapse Bicuspid aortic valve Surgical History (Updated 03/22/24 @ 13:[address] Maria Teresa Jolly MD) Hx of wisdom tooth extraction Hx of prior ablation treatment Family History (Updated 03/22/24 @ 13:[address] Maria Teresa Jolly MD) Father Angina pectoris Thyroid disorder Grandfather Angina pectoris Heart disease CABG Grandfather Skin cancer Grandmother CVA (cerebral vascular accident) Diabetes Hypertension Hyperlipidemia Mother Hyperlipidemia Social History (Updated 03/22/24 @ 13:[address] 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 She was seeing Lita Becerra DNP and last saw her in December. She is not due for any routine blood work or screening. She isn't due for any immunizations. She doesn't smoke and doesn't need any refills. She reports she is eating somewhat healthy, but does like to snack and staying active at work. The patient has a history of anxiety and ADHD. She follows with psychiatry and saw them last week. She reports that she is doing well on her current medications without problems. She was seeing a counselor, but hasn't seen them recently. She denies any current concerns about her mental health nor any thoughts of suicide. She has a history of MVP and follows with cardiology. Her last echo was in July which didn't show any significant changes. She reports she does get PVCs occasionally for which she will increase her sodium and potassium. She denies any significant problems with it. She has a history of RLS and takes gabapentin and PRN requip for it. She reports that it does control her symptoms. She will take a requip maybe once every few months. She believes it is from her psychi (more content not included)... Normal [facility] MR/BMS.BPon 03-08-2024 MR/BMS.BP [address], [address] [place] [address] OFFICE VISIT Date of Service: 03/08/24 MR#: [id number] Acct: [id number] Name: DOMINGA GONZÁLES Rep #: [id number] : 1990 Provider: Dr. Serge Barker se, DO Age/Sex: 33/F Location: [facility] [place] [facility] Status: Signed Intake Vital Signs 01/11/24 13:02 03/08/24 12:52 Height 5 ft 4 in 5 ft 4 in Weight: 162 lb BMI 27.8 BP 122/80 H 126/87 H Blood Pressure Location Rt brachial Lt brachial Position Sitting Sitting Respiration 16 16 Pulse 79 87 Pulse Source Monitor Monitor BP Intake Visit Reasons: Follow up Accompanied by: Self Allergies No Known Allergies Allergy (Verified 03/08/24 12:55) Medications ???Medication ???Instructions ???Recorded ???Confirmed ???Type melatonin 10 mg tablet 10 mg PO HS PRN 08/11/22 03/08/24 History ropinirole 0.25 mg tablet 0.25 mg PO QHS PRN restless leg(s) 01/25/23 03/08/24 Rx #30 tabs albuterol sulfate 90 mcg/actuation 2 puff inhalation Q4H PRN 04/09/23 03/08/24 Rx aerosol inhaler (Ventolin HFA) shortness of breath or wheezing #18 grams lorazepam 1 mg tablet 0.5 - 1 mg (0.5 - 1 x 1 mg) PO 04/11/23 03/08/24 Rx DAILY PRN anxiety #30 tabs valacyclovir 1 gram tablet 2,000 mg PO BID PRN 11/30/23 03/08/24 History (Valtrex) levothyroxine 25 mcg tablet 25 mcg PO QDAY #30 tabs 12/16/23 03/08/24 Rx magnesium 250 mg tablet 250 mg PO QDAY 12/16/23 03/08/24 History hydroxyzine HCl 50 mg tablet 50 mg PO QHS PRN sleep #30 tabs 01/16/24 03/08/24 Rx ondansetron 8 mg disintegrating 8 mg PO Q4H PRN nausea and 02/23/24 03/08/24 Rx tablet vomiting #30 tabs esomeprazole magnesium 40 mg 40 mg PO QAM #90 caps 02/27/24 03/08/24 Rx capsule,delayed release gabapentin 300 mg capsule 300 mg PO QHS #30 caps 03/08/24 03/08/24 Rx lisdexamfetamine 30 mg capsule 30 mg PO QAM 30 days #30 caps 03/08/24 03/08/24 Rx vilazodone 40 mg tablet 40 mg PO DAILY 90 days #90 tabs 03/08/24 03/08/24 Rx PFSH Medical History (Updated 01/11/24 @ 13:[address] Serge Ellis, DO) ADHD Depression, unspecified LISA (generalized anxiety disorder) Right calf pain Gouty arthritis of right great toe TIKA (iron deficiency anemia) Restless leg syndrome Wears glasses Anxiety Alcohol use Gastric reflux Non-smoker Asthma Shortness of breath on exertion History of echocardiogram History of stress test On Accutane therapy Mitral valve prolapse Bicuspid aortic valve Surgical History Hx of wisdom tooth extraction Hx of prior ablation treatment Family History Father Angina pectoris Thyroid disorder Grandfather Angina pectoris Heart disease Grandfather Skin cancer Social History current occupational status: employed 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 Smoking Status: Never smoker alcohol intake: current alcohol intake frequency: holidays/special occasions only substance use type: does not use what type of physical activity do you participate in: other details: Cardio frequency: 3-4 times per week do you feel safe at home: Yes additional social history: - Joel HPI History of Present Illness History provided by: patient HPI: Dominga Gonzáles is a 33 year old female who presents today for follow up evaluation. Patient reports that she has been doing pretty good. Feels like she does not like the [employer] has worked and it makes her hungry and irritable. Can't tell a significant improvement in regards to focus/concentration. Sleep has been largely good. Getting about 8 hours every night. Anxiety has been largely well controlled. 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 Denies any SI HI or AVH. Review of Systems Constitutional Denies: fever(s), chills or change in weight Eyes Denies: change in vision or blurry vision Ears, Nose, Mouth, Throat Denies: throat pain, neck pain or change in hearing Cardiovascular Denies: chest pain, palpitations or dyspnea Respiratory Denies: dyspnea, cough or wheezing Gastrointestinal Reports: nausea; Denies: abdominal pain, vomiting, diarrhea or constipation Genitourinary Denies: dysuria or urinary frequency Musculoskeletal Denies: back pain, neck pain, joint pain or muscle weakness Integumentary/Breast Denies: rash or new lesions Neurological Denies: headache(s), dizziness or confusion Psychiatric Reports: anxiety, change in sleep pattern (Difficulty sleeping) and difficulty concentrating Endocrine Denies: excessive sweating Hematologic/Lymphatic Denies: easy bruising or easy bleeding Allergic/Immunologic Denies: wheezing Exam Mental Status Exam - Psych Appearance casually dressed A (more content not included)... Normal [facility] Thyroidon 01-27-2024 Thyroid [facility] Imaging Services [address] [place] [place], [place] [address] Thyroid MR#: [id number] Acct: [id number] Name: DOMINGA GONZÁLES Rep #: [id number] : 1990 F 33 From: Eulogio christiansen MD PCP: LIZZY Knapp Status: REG CLI Study: Thyroid Date of Exam: 01/27/24 Exam# [id number] Ordering Dr: Lita Becerra [id number] STUDY: THYROID ULTRASOUND REASON FOR EXAM: Female, 33 years old. Hypothyroidism. TECHNIQUE: Ultrasound evaluation of the thyroid was performed with real-time and static nolan-scale imaging. COMPARISON: None. FINDINGS: RIGHT LOBE: The right lobe of the thyroid gland measures 4.6 cm x 1.7 cm x 1.3 cm. There is a heterogeneous echotexture. There are no demonstrated solid, cystic or complex lesions. LEFT LOBE: The left lobe of the thyroid gland measures 4.6 cm x 2.2 cm x 1.5 cm. There is a heterogeneous echotexture. There are no demonstrated solid, cystic or complex lesions. ISTHMUS: The isthmus measures 1.7 mm. The regional lymph nodes are normal. US/Thyroid IMPRESSION: Heterogeneous echotexture of both lobes of thyroid gland without a distinct nodule. Electronically Signed: Eulogio Christy MD at 9:46 EST , CC: LIZZY Becerra Recovery Coach: Signed Normal [facility] MR/BMS.BPon 01-11-2024 MR/BMS.BP [facility] [address], [address] [place] [address] OFFICE VISIT Date of Service: 01/11/24 MR#: [id number] Acct: [id number] Name: DOMINGA GONZÁLES Rep #: [id number] : 1990 Provider: Dr. Serge Barker se, DO Age/Sex: 33/F Location: [facility] [place].BP Status: Signed Intake Vital Signs 07/25/23 13:27 12/16/23 14:33 01/11/24 13:02 Height 5 ft 4 in 5 ft 4 in 5 ft 4 in BP 122/80 H Blood Pressure Location Rt brachial Position Sitting Respiration 16 Pulse 79 Pulse Source Monitor BP Intake Visit Reasons: 5MFU Accompanied by: Self Allergies No Known Allergies Allergy (Verified 01/11/24 13:04) Medications ???Medication ???Instructions ???Recorded ???Confirmed ???Type melatonin 10 mg tablet 10 mg PO HS PRN 08/11/22 01/11/24 History ropinirole 0.25 mg tablet 0.25 mg PO QHS PRN restless leg(s) 01/25/23 01/11/24 Rx #30 tabs albuterol sulfate 90 mcg/actuation 2 puff inhalation Q4H PRN 04/09/23 01/11/24 Rx aerosol inhaler (Ventolin HFA) shortness of breath or wheezing #18 grams lorazepam 1 mg tablet 0.5 - 1 mg (0.5 - 1 x 1 mg) PO 04/11/23 01/11/24 Rx DAILY PRN anxiety #30 tabs ondansetron 8 mg disintegrating 8 mg PO Q4H PRN nausea and 08/30/23 01/11/24 Rx tablet vomiting #30 tabs hydroxyzine HCl 50 mg tablet 50 mg PO QHS PRN sleep #30 tabs 09/12/23 01/11/24 Rx esomeprazole magnesium 40 mg 40 mg PO QAM #90 caps 09/19/23 01/11/24 Rx capsule,delayed release gabapentin 300 mg capsule 300 mg PO QHS #30 caps 10/18/23 01/11/24 Rx valacyclovir 1 gram tablet 2,000 mg PO BID PRN 11/30/23 01/11/24 History (Valtrex) levothyroxine 25 mcg tablet 25 mcg PO QDAY #30 tabs 12/16/23 01/11/24 Rx magnesium 250 mg tablet 250 mg PO QDAY 12/16/23 01/11/24 History methylphenidate HCl 5 mg tablet 5 mg PO BID 30 days #60 tabs 01/11/24 01/11/24 Rx vilazodone 40 mg tablet 40 mg PO DAILY 90 days #90 tabs 01/11/24 01/11/24 Rx PFSH Medical History (Updated 01/11/24 @ 13:[address] Serge Ellis, DO) ADHD Depression, unspecified LISA (generalized anxiety disorder) Right calf pain Gouty arthritis of right great toe TIKA (iron deficiency anemia) Restless leg syndrome Wears glasses Anxiety Alcohol use Gastric reflux Non-smoker Asthma Shortness of breath on exertion History of echocardiogram History of stress test On Accutane therapy Mitral valve prolapse Bicuspid aortic valve Surgical History Hx of wisdom tooth extraction Hx of prior ablation treatment Family History Father Angina pectoris Thyroid disorder Grandfather Angina pectoris Heart disease Grandfather Skin cancer Social History current occupational status: employed 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 Smoking Status: Never smoker alcohol intake: current alcohol intake frequency: holidays/special occasions only substance use type: does not use what type of physical activity do you participate in: other details: Cardio frequency: 3-4 times per week do you feel safe at home: Yes additional social history: - Joel HPI History of Present Illness History provided by: patient HPI: Dominga Gonzáles is a 33 year old female who presents today for follow up evaluation. Patient reports that she has been doing good. Feels like all Wellbutrin is doing is causing dry mouth and reduced appetite. Continues to feel as though her focus is poor and did not notice any significant benefit with Wellbutrin. Denies any significant weight loss with medication. was recently in the hospital secondary to a GI bleed. Mood kolb she has been doing good. Sleep has been doing good. Stopped following with Isa at [place] therapy. Review of Systems Constitutional Reports: fatigue; Denies: fever(s), chills or change in weight Eyes Denies: change in vision or blurry vision Ears, Nose, Mouth, Throat Denies: throat pain, neck pain or change in hearing Cardiovascular Denies: chest pain, palpitations or dyspnea Respiratory Denies: dyspnea, cough or wheezing Gastrointestinal Reports: nausea; Denies: abdominal pain, vomiting, diarrhea or constipation Genitourinary Denies: dysuria or urinary frequency Musculoskeletal Denies: back pain, neck pain, joint pain or muscle weakness Integumentary/Breast Denies: rash or new lesions Neurological Denies: headache(s), dizziness or confusion Psychiatric Reports: anxiety, change in sleep pattern (Difficulty sleeping) and difficulty concentrating Endocrine Reports: fatigue; Denies: excessive sweating Hematologic/Lymphatic Denies: easy bruising or easy bleeding Allergic/Immunologic Denies: wheezing Exam Mental Status Exam - (more content not included)... Normal [facility] PT D/C Summary (1)on 024 PT D/C Summary (1) [facility] [address] [place] [address] [address] [place] [address] / REHABILITATION SERVICES DISCHARGE SUMMARY MR#: [id number] Acct: [id number] Name: DOMINGA GONZÁLES Rep #: [id number] : 1990 33 From: Tomer Mitchell DPT, OCS, CSCS Referring DrSven: LIZZY Becerra Status: REG RCR Insurance: [employer] SELF [employer]Y INSURANCE Discharge Summary D/C summary: It has been my pleasure to treat DOMINGA GONZÁLES referred by LIZZY Knapp, with the diagnosis of B foot pain for a total of 2 visit(s). Discharge Date: 01/11/24 Please see the following information for a summary of their discharge status. Subjective Subjective: No pain. Pain R foot: Pain Intensity (Out of 10): 2 L foot: Pain Intensity (Out of 10): 1 Overall Improvement % Improvement: 100 Objective Objective/Function: Good support felt in B shoes with orthotics in. Will call if problems or concerns to have modified. Goals Goal 1:: STG: Pt. to be fit for custom orthotics Goal Progress: Goal Met Goal 2:: LTG: Pt. to be educated in progressive wearing pattern for her orthotics. Goal Progress: Goal Met Plan Plan: d/c D/C Information Discharge Comments: has orthotics and will call if problems with them. d/c sentence: If there are questions or concerns regarding this patient's physical therapy, please feel free to call me at [phone]. Thank you for the referral of this patient. Sincerely, Tomer Mitchell, DPT, OCS, CSCS Balance/Gait/Functiona l tests Balance/Special Test Scores Lower Extremity Functional Score: 80 Improvement % Improvement: 100 01/11/24 1037 CC: SUPERVISOR FINISHINGBlaineC Lita Becerra EBG Signed Normal [facility] PAP IG HPV APTIMA 16/18,45on 12-20-2023 ADEQ Comment Normal . [facility] Comment on above: Order Comment: Speci men Comment: [id number] Specimen Comment: Source.............Cervix Specimen Comment: LMP / Prev Treat...[id number] Specimen Comment: No. of containers..01 ThinPrep Vial Result Comment: Sati sfactory for evaluation. Endocervical and/or squamous metaplastic cells (endocervical component) are present. Performed By: #### L 7400.0280 #### [facility] [address] [place], [place], [id number] COMM . Normal . [facility] Comment on above: Order Comment: Speci men Comment: [id number] Specimen Comment: Source.............Cervix Specimen Comment: LMP / Prev Treat...[id number] Specimen Comment: No. of containers..01 ThinPrep Vial Performed By: #### L 7400.0280 #### [facility] [address] [place], [place], [id number] COMMENT Comment Normal . [facility] Comment on above: Order Comment: Speci men Comment: [id number] Specimen Comment: Source.............Cervix Specimen Comment: LMP / Prev Treat...[id number] Specimen Comment: No. of containers..01 ThinPrep Vial Result Comment: This liquid based ThinPrep(R) pap test was screened with the use of an image guided system. Performed By: #### L 7400.0280 #### [facility] [address] [place], [place], [address] DIAG Comment Normal . [facility] Comment on above: Order Comment: Speci men Comment: [id number] Specimen Comment: Source.............Cervix Specimen Comment: LMP / Prev Treat...[id number] Specimen Comment: No. of containers..01 ThinPrep Vial Result Comment: NEGA TIVE FOR INTRAEPITHELIAL LESION OR MALIGNANCY. Performed By: #### L 7400.0280 #### [facility] [address] [place], [place], [id number] HPV APTIMA, HR Negative Normal Negative [facility] Comment on above: Order Comment: Speci men Comment: [id number] Specimen Comment: Source.............Cervix Specimen Comment: LMP / Prev Treat...[id number] Specimen Comment: No. of containers..01 ThinPrep Vial Result Comment: This nucleic acid amplification test detects fourteen high- risk HPV types (16,18,31,33,35,39,45,51,52,56,58,59,66,68) without differentiation. Performed By: #### L 7400.0280 #### [facility] [address] [place], [place], [id number] HPV [place]adna Rfx Comment Normal . [facility] Comment on above: Order Comment: Speci men Comment: [id number] Specimen Comment: Source.............Cervix Specimen Comment: LMP / Prev Treat...[id number] Specimen Comment: No. of containers..01 ThinPrep Vial Result Comment: Crit eria not met, HPV Genotype not performed. Performed at: - [facility] [id number] Job Honer: Tika Barajas MD, Phone: [phone] Performed at: = - [facility] [id number] Job Honer: Tika Barajas MD, Phone: [phone] Performed By: #### L 7400.0280 #### [facility] [address] [place], [address] PAPSMR Comment Normal . [facility] Comment on above: Order Comment: Speci men Comment: [id number] Specimen Comment: Source.............Cervix Specimen Comment: LMP / Prev Treat...[id number] Specimen Comment: No. of containers..01 ThinPrep Vial Result Comment: The Pap smear is a screening test designed to aid in the detection of premalignant and malignant conditions of the uterine cervix. It is not a diagnostic procedure and should not be used as the sole means of detecting cervical cancer. Both false-positive and false-negative reports do occur. Performed By: #### L 7400.0280 #### [facility] [address] [place], [place], [id number] PERFORM Comment Normal . [facility] Comment on above: Order Comment: Speci men Comment: [id number] Specimen Comment: Source.............Cervix Specimen Comment: LMP / Prev Treat...[id number] Specimen Comment: No. of containers..01 ThinPrep Vial Result Comment: Perico Chin, Cant Gang Sawyer (ASCP) Performed By: #### L 7400.0280 #### [facility] [address] [place], [place], [id number] Internal Medicine Office Vis kiera 12-16-2023 Internal Medicine Office Visit [facility] [address] [place] [address] [place] [address] OFFICE VISIT Date of Service: 12/16/23 MR#: [id number] Acct: [id number] Name: DOMINGA GONZÁLES Rep #: [id number] : 1990 Provider: LIZZY morse Age/Sex: 33/F Location: [facility] [place] [facility] Status: Signed Intake Vital Signs 11/30/23 07:51 12/12/23 13:06 12/16/23 14:33 Height 5 ft 4 in 5 ft 4 in 5 ft 4 in Weight: 163 lb BMI 27.9 BP 132/70 H Blood Pressure Location Lt brachial Position Sitting Respiration 17 Pulse 83 Pulse Source Monitor Temp 97.4 F L Temp Source Temporal Pulse Oximetry (%) 98 Oxygen Delivery Method room air Intake Visit Reasons: FU FROM THYROID LABS Chief Complaint: FU FROM THYROID LABS Is patient in pain?: No Allergies No Known Allergies Allergy (Verified 12/16/23 14:37) Medications ???Medication ???Instructions ???Recorded ???Confirmed ???Type melatonin 10 mg tablet 10 mg PO HS PRN 08/11/22 12/16/23 History ropinirole 0.25 mg tablet 0.25 mg PO QHS PRN restless leg(s) 01/25/23 12/16/23 Rx #30 tabs albuterol sulfate 90 mcg/actuation 2 puff inhalation Q4H PRN 04/09/23 12/16/23 Rx aerosol inhaler (Ventolin HFA) shortness of breath or wheezing #18 grams lorazepam 1 mg tablet 0.5 - 1 mg (0.5 - 1 x 1 mg) PO 04/11/23 12/16/23 Rx DAILY PRN anxiety #30 tabs ondansetron 8 mg disintegrating 8 mg PO Q4H PRN nausea and 08/30/23 12/16/23 Rx tablet vomiting #30 tabs hydroxyzine HCl 50 mg tablet 50 mg PO QHS PRN sleep #30 tabs 09/12/23 12/16/23 Rx esomeprazole magnesium 40 mg 40 mg PO QAM #90 caps 09/19/23 12/16/23 Rx capsule,delayed release gabapentin 300 mg capsule 300 mg PO QHS #30 caps 10/18/23 12/16/23 Rx bupropion HCl 150 mg tablet,12 hr 150 mg PO BID 30 days #60 ea 11/30/23 12/16/23 Rx sustained-release valacyclovir 1 gram tablet 2,000 mg PO BID PRN 11/30/23 12/16/23 History (Valtrex) vilazodone 40 mg tablet 40 mg PO DAILY 90 days #90 tabs 12/14/23 12/16/23 Rx levothyroxine 25 mcg tablet 25 mcg PO QDAY #30 tabs 12/16/23 12/16/23 Rx magnesium 250 mg tablet 250 mg PO QDAY 12/16/23 12/16/23 History Have you fallen in the past year?: No [facility] Medical History Depression, unspecified LISA (generalized anxiety disorder) Right calf pain Gouty arthritis of right great toe TIKA (iron deficiency anemia) Restless leg syndrome Wears glasses Anxiety Alcohol use Gastric reflux Non-smoker Asthma Shortness of breath on exertion History of echocardiogram History of stress test On Accutane therapy Mitral valve prolapse Bicuspid aortic valve Surgical History Hx of wisdom tooth extraction Hx of prior ablation treatment Family History Father Angina pectoris Thyroid disorder Grandfather Angina pectoris Heart disease Grandfather Skin cancer Social History current occupational status: employed 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 Smoking Status: Never smoker alcohol intake: current alcohol intake frequency: holidays/special occasions only substance use type: does not use what type of physical activity do you participate in: other details: Cardio frequency: 3-4 times per week do you feel safe at home: Yes additional social history: - Joel HPI HPI Chief Complaint: FU FROM THYROID LABS Details: ODMINGA GONZÁLES, is a 33 F who presents to the office today for an acute visit to discuss thyroid labs. She reports increased fatigue despite sleeping 8-10 hours at night, hair loss, constipation, weight gain and difficulty swallowing, worsening over the past few months. She had labs drawn per PCP that noted normal TSH, Low FT4, and elevated TPOs. No history of thyroid disorder. Reports menstrual cycle is normal but heavy. ROS Const Constitutional: No body ache, chills, excessive sweating, fatigue, fever(s), frequent falls, headache(s), snoring, weight change, sleep problems, abnormal sleep pattern or change in appetite Eyes Eyes: No blurry vision, change in vision, eye pain or Light sensitivity ENT ENT: No abnormal hearing, ear or mastoid pain, tinnitus, nasal congestion, headache(s), neck pain or sore throat Resp Respiratory: No cough, shortness of breath, snoring or wheezing Cardio Cardiology: No chest pain at rest, chest pain with exertion, excessive sweating, shortness of breath, dyspnea on exertion, lightheadedness, orthopnea or palpitations Gastro GI: No abdominal pain, change in bowel habits, constipation, cramping, diarrhea, nausea/dyspepsia or vomiting Genitourinary-Female: No burning urination, painful urination, urinary incontinence, urinary f (more content not included)... 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 Office Visit Reporton 12-12-2023 Paving Inspector Office Visit Report [facility] [address], [address] [place] [address] OFFICE VISIT Date of Service: 12/12/23 MR#: [id number] Acct: [id number] Name: DOMINGA GONZÁLES Rep #: [id number] : 1990 Provider: LIZZY wood Age/Sex: 33/F Location: [place] Status: Signed Intake Vital Signs 12/07/22 10:13 02/03/23 09:36 07/25/23 13:27 11/30/23 07:51 12/12/23 12:59 12/12/23 13:06 Height 5 ft 4 in 5 ft 4 in 5 ft 4 in 5 ft 4 in 5 ft 4 in 5 ft 4 in Weight: 162 lb 2 oz BMI 27.8 BP 114/72 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) Chief Complaint: Annual Inletter Required: No Is patient in pain?: No Allergies No Known Allergies Allergy (Verified 12/12/23 13:08) Medications ???Medication ???Instructions ???Recorded ???Confirmed ???Type melatonin 10 mg tablet 10 mg PO HS PRN 08/11/22 12/12/23 History ropinirole 0.25 mg tablet 0.25 mg PO QHS PRN restless leg(s) 01/25/23 12/12/23 Rx #30 tabs albuterol sulfate 90 mcg/actuation 2 puff inhalation Q4H PRN 04/09/23 12/12/23 Rx aerosol inhaler (Ventolin HFA) shortness of breath or wheezing #18 grams lorazepam 1 mg tablet 0.5 - 1 mg (0.5 - 1 x 1 mg) PO 04/11/23 12/12/23 Rx DAILY PRN anxiety #30 tabs dicyclomine 20 mg tablet 20 mg PO BID PRN abdominal pain 05/16/23 12/12/23 Rx #30 tabs ondansetron 8 mg disintegrating 8 mg PO Q4H PRN nausea and 08/30/23 12/12/23 Rx tablet vomiting #30 tabs hydroxyzine HCl 50 mg tablet 50 mg PO QHS PRN sleep #30 tabs 09/12/23 12/12/23 Rx esomeprazole magnesium 40 mg 40 mg PO QAM #90 caps 09/19/23 12/12/23 Rx capsule,delayed release gabapentin 300 mg capsule 300 mg PO QHS #30 caps 10/18/23 12/12/23 Rx vilazodone 40 mg tablet 40 mg PO DAILY 90 days #90 tabs 10/18/23 12/12/23 Rx bupropion HCl 150 mg tablet,12 hr 150 mg PO BID 30 days #60 ea 11/30/23 12/12/23 Rx sustained-release valacyclovir 1 gram tablet 2,000 mg PO BID PRN 11/30/23 12/12/23 History (Valtrex) Is last menstrual period known: Yes Last Menstrual Period: 11/23/23 Post menopausal: No Patient : No : No PFSH Medical History Depression, unspecified LISA (generalized anxiety disorder) Right calf pain Gouty arthritis of right great toe TIKA (iron deficiency anemia) Restless leg syndrome Wears glasses Anxiety Alcohol use Gastric reflux Non-smoker Asthma Shortness of breath on exertion History of echocardiogram History of stress test On Accutane therapy Mitral valve prolapse Bicuspid aortic valve Surgical History Hx of wisdom tooth extraction Hx of prior ablation treatment Family History Father Angina pectoris Thyroid disorder Grandfather Angina pectoris Heart disease Grandfather Skin cancer Social History current occupational status: employed 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 Smoking Status: Never smoker alcohol intake: current alcohol intake frequency: holidays/special occasions only substance use type: does not use what type of physical activity do you participate in: other details: Cardio frequency: 3-4 times per week do you feel safe at home: Yes additional social history: - Joel History 0 Elective abortions Hx Para Spontaneous abortions Hx # Term Pregnancies Ectopic pregnancies Hx # Pregnancies Multiple births # of living children HPI Encounter for routine gynecological examination Details: DOMINGA GONZÁLES is a 33 year old who presents for annual exam. Denies concerns. Recent labs indicate abnormal thyroid studies and sees PCP this week. Menses now regular without nuvaring Last PAP: 2022 neg pap and HPV History of abnormal PAP: ASCUS +HPV 2020 Last mammogram: age 36 Other preventative health care screenings: reyes Female Reproductive History Last Menstrual Period: 11/23/23 Cycle Length: 21-35 Questions: metorrhagia: No, sexually active: Yes, dyspareunia: No and PCB: No ROS Const Constitutional: Denies fatigue, weight gain or weight loss Cardio Card: Denies chest pain Resp Resp: Denies cough or dyspnea on exertion GI GI: Denies abdominal pain, bloating, change in stool character, constipation or vomiting : Reports as per HPI; Denies difficulty voiding, pelvic pain, urinary frequency, urinary incontinence, urinary urgency, vaginal discharge or vaginal pruritus Exam Const General: cooperative, healthy appearing, no acute distress and well developed Orientation: alert, oriented to person and oriented to place HENMT Head: normal to inspection Neck Neck: normal visual inspection Thyroid: (more content not included)... Normal [facility] Thyroid Peroxidase ABon 10-2 THYR PEROX AB 74 IU/mL High 0-34 [facility] Comment on above: Order Comment: Speci men Comment: A duplicate report has been generateddue to demographicSpecimen Comment: updates. Result Comment: Perf ormed at: - [facility] [address] [id number] Job Honer: Pedro Garduno PhD, Phone: [phone] Performed By: #### L 501.0429, J3592.1578, L528.4735 ####[facility] [address] [place], [place], [address] Inital Evaluation (1) - PTon 12-05-2023 Inital Evaluation (1) - PT [facility] [address] [place] [address] / REHABILITATION SERVICES INITIAL EVALUATION MR#: [id number] Acct: [id number] Name: DOMINGA GONZÁLES Rep #: [id number] : 1990 33 From: Will Seals DPT Referring Dr.: LIZZY Knapp Status: REG RCR Insurance: [employer] SELF PAY INSURANCE Patient's Visit Information Visit Information Visit Information: DOMINGA GONZÁLES is a 33 year old F referred to Physical Therapy by LIZZY Knapp with a diagnosis of B foot pain. Date of Evaluation: 12/05/23 Physical Therapist: Will Seals DPT Visit Plan Frequency: 1x/Week Duration: 2 Weeks Plan: 1) fit for custom orthotics 2) make final adjustments after fitting 3) educate in wearing program. Subjective Subjective: Pt. is here today for her initial evaluation with diagnosis of bilateral foot pain with need for orthotic shoe inserts. Pt. reports having increased B foot pain for a few year, but her R foot has been worse since breaking a bone inher foot a few years ago. 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 She reports not doing much recreational activities due to her work and school schedule. She reports averaging 05391 steps a day while at work. Pt. is hopeful to get orthotics to increase her tolerance to all work and walking activities. Pain R foot: Pain Intensity (Out of 10): 2 Pain Intensity Range: 0 and 2 L foot: Pain Intensity (Out of 10): 1 Pain Intensity Range: 0 and 2 Objective Objective: POSTURE: Pt. has normal foot positioning in stance, increased pronation during SLS bilaterally and equally. PALPATION: Pt. has tenderness along longitudinal arch bilaterally R worse than L. NEURO: normal throughout. ROM: R ankle: DF 14deg, PF 41deg, INV 20deg, EVR 20deg. L ankle: DF 15deg, PF 42deg, INV 20deg, EVR 20deg. Normal B knee ROM noted. MMT: PT. has 5/5 strength throughout B feet and ankles. GAIT: Withotu shoes on pt. has marked pronation during stance bilaterally. Balance/Special Test Scores Lower Extremity Functional Score: 80 Goals Goal 1:: STG: Pt. to be fit for custom orthotics Goal Time Frame: 1 Week Goal 2:: LTG: Pt. to be educated in progressive wearing pattern for her orthotics. Goal Time Frame: 2 Weeks Rehabilitation Potential Physical Therapy Diagnosis: Pt. has signs and symptoms consistent with B foot pain. Pt. would benefit from PT to have custom orthotics molded to aide in tolerance to walking and standing. Rehabilitation Potential: Excellent Anticipated Interventions Patient/Client Instruction: Educate patient on: Condition, Plan of Care, Risk Factors and Benefits of Fitness Program For the Purpose of:: To improve decision making, To facilitate caregiver knowledge, To improve self management, To prevent re-injury and To improve ability to perform tasks related to life management Orthotics: Shoe insert For the Purpose of:: To decrease pain, To increase ROM, To improve nutrient delivery to tissue and To increase oxygenation perfusion Text: Thank you for the opportunity to evaluate your patient. For Medicare and Medicare HMO plans, please review the plan of care and approve it. It will need to be FAXED BACK to us at [phone] for Medicare purposes. For Medicare only, by signing this I certify the plan of care. Please let me know if there are questions or concerns regarding this plan of care. Physician Signature: Date:__ 12/05/23 1158 CC: LIZZY Musejavier Becerra CLS Signed Normal [facility] L3300.0940on 12-03-2023 VIT D,25 HYDROX Normal [facility] Comment on above: Result Comment: TEST RESULTS LIMITS Vitamin D, 25-Hydroxy 19.1 Low ng/mL 30.0-100.0 Vitamin D deficiency has been defined by the [place] of Medicine and an Endocrine Society practice guideline as a level of serum 25-OH vitamin D less than 20 ng/mL (1,2). The Endocrine Society went on to further define vitamin D insufficiency as a level between 21 and 29 ng/mL (2). 1. IOM ([place] of Medicine). 2010. Dietary reference intakes for calcium and D. [place]: The National Academies Press. 2. Fidelia MF, Jael NC, Ellis SCHMID, et al. Evaluation, treatment, and prevention of vitamin D deficiency: an Endocrine Society clinical practice guideline. JCEM. 2011 Aug; 96(7):1911-30. TESTING PERFORMED AT [facility]. ORIGINAL REPORT ON FILE IN LAB CONTAINS ADDITIONAL TEST SITE INFORMATION. Performed By: #### L 3300.0940 #### [facility] [address] [place], [address] T4 Free Directon 12-01-2023 T4 FREE DIRECT 0.71 ng/dL Low 0.76-1.46 [facility] Comment on above: Performed By: #### L 501.9520, L3300.6900, L506.0400 ####[facility] [address] [place], [address] Thyroid Stim Hormone (TSH)on 12-01-2023 TSH 1.600 uIU/mL Normal 0.358-3.740 [facility] Comment on above: Performed By: #### L 501.9520, L3300.6900, L506.0400 #### [facility] [address] [place], [address] MR/BMS.BPon 11-30-2023 MR/BMS.BP [address], [address] [place] [address] OFFICE VISIT Date of Service: 11/30/23 MR#: [id number] Acct: [id number] Name: DOMINGA GONZÁLES Rep #: [id number] : 1990 Provider: Dr. Serge Barker se, Age/Sex: 33/F Location: [facility] [place] [facility] Status: Signed Intake Vital Signs 07/25/23 13:27 11/30/23 07:51 Height 5 ft 4 in 5 ft 4 in Weight: 164 lb BMI 28.1 BP 110/75 Blood Pressure Location Rt brachial Position Sitting Pulse 71 Pulse Source Monitor BP Intake Visit Reasons: Inattention Accompanied by: Self Is patient in pain?: No Allergies No Known Allergies Allergy (Verified 11/30/23 07:53) Medications ???Medication ???Instructions ???Recorded ???Confirmed ???Type melatonin 10 mg tablet 10 mg PO HS PRN 08/11/22 11/30/23 History ropinirole 0.25 mg tablet 0.25 mg PO QHS PRN restless leg(s) 01/25/23 11/30/23 Rx #30 tabs albuterol sulfate 90 mcg/actuation 2 puff inhalation Q4H PRN 04/09/23 11/30/23 Rx aerosol inhaler (Ventolin HFA) shortness of breath or wheezing #18 grams lorazepam 1 mg tablet 0.5 - 1 mg (0.5 - 1 x 1 mg) PO 04/11/23 11/30/23 Rx DAILY PRN anxiety #30 tabs dicyclomine 20 mg tablet 20 mg PO BID PRN abdominal pain 05/16/23 11/30/23 Rx #30 tabs ondansetron 8 mg disintegrating 8 mg PO Q4H PRN nausea and 08/30/23 11/30/23 Rx tablet vomiting #30 tabs hydroxyzine HCl 50 mg tablet 50 mg PO QHS PRN sleep #30 tabs 09/12/23 11/30/23 Rx esomeprazole magnesium 40 mg 40 mg PO QAM #90 caps 09/19/23 11/30/23 Rx capsule,delayed release gabapentin 300 mg capsule 300 mg PO QHS #30 caps 10/18/23 11/30/23 Rx vilazodone 40 mg tablet 40 mg PO DAILY 90 days #90 tabs 10/18/23 11/30/23 Rx bupropion HCl 150 mg tablet,12 hr 150 mg PO BID 30 days #60 ea 11/30/23 11/30/23 Rx sustained-release valacyclovir 1 gram tablet 2,000 mg PO BID PRN 11/30/23 History (Valtrex) [facility] Medical History (Updated 11/30/23 @ 14:[address] Serge Ellis, ) Depression, unspecified School physical exam LISA (generalized anxiety disorder) Right calf pain Gouty arthritis of right great toe TIKA (iron deficiency anemia) Restless leg syndrome Wears glasses Anxiety Alcohol use Gastric reflux Non-smoker Asthma Shortness of breath on exertion History of echocardiogram History of stress test On Accutane therapy Mitral valve prolapse Bicuspid aortic valve Surgical History Hx of wisdom tooth extraction Hx of prior ablation treatment Family History (Updated 11/30/23 @ 07:54 by Richa Hill) Father Angina pectoris Thyroid disorder Grandfather Angina pectoris Heart disease Grandfather Skin cancer Social History current occupational status: employed 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 Smoking Status: Never smoker alcohol intake: current alcohol intake frequency: holidays/special occasions only substance use type: does not use what type of physical activity do you participate in: other details: Cardio frequency: 3-4 times per week do you feel safe at home: Yes additional social history: - Joel HPI History of Present Illness History provided by: patient HPI: Dominga Gonzáles is a 33 year old female who presents today for follow up evaluation. Patient reports that she lost her dog about 2 months ago very unexpectedly over a 2 day period. Since this time has been having some worsening depressive symptoms. Because of this, has been having some worsening concentration and focus. Feels like she needs something to help focus because of the stress. Has been following Isa at [facility]. Grades have been worsening in recent past. At work, feels like she is a squirrel and will jump between tasks, but this is not all the time. Sleep has been fair, did have a stretch where she was waking up at 4 am nearly every day. Appetite has been increased, which she feels is stress eating. Denies any SI HI or AVH. Review of Systems Constitutional Reports: fatigue; Denies: fever(s), chills or change in weight Eyes Denies: change in vision or blurry vision Ears, Nose, Mouth, Throat Denies: throat pain, neck pain or change in hearing Cardiovascular Denies: chest pain, palpitations or dyspnea Respiratory Denies: dyspnea, cough or wheezing Gastrointestinal Reports: nausea; Denies: abdominal pain, vomiting, diarrhea or constipation Genitourinary Denies: dysuria or urinary frequency Musculoskeletal Denies: back pain, neck pain, joint pain or muscle weakness Integumentary/Breast Denies: rash or new lesions Neurological Denies: headache(s), dizziness or confusion Psychiatric Reports: anxiety, change in sleep pattern (Difficulty sleeping) and difficulty concentrating Endoc (more content not included)... Normal [facility] Absolute lymphocyte countOrd ered By: Talon Ray on 03-19-2022 Lymphocytes Auto (Unsp spec) [#/Vol] 1.66 10*3/uL 0.83-4.51 [facility] Basophil percentageOrdered B y: Talon Ray on 03-19-2022 Basophils/100 WBC (Bld) 0.8 % 0-1 [facility] Eosinophils/100 WBC (Bld) 4.4 % 0-5 [facility] Neutrophils (Bld) [#/Vol] 5.8 10*3/uL 2.0-7.7 [facility] Neutrophils/100 WBC (Bld) 66.2 % 47-70 [facility] WBC (Bld) [#/Vol] 8.8 10*3/uL 4.4-11.0 [facility] Blood erythrocytes count (nu mber/volume)Ordered By: Talon Ray on 03-19-2022 RBC (Bld) [#/Vol] 4.83 10*6/uL 4.2-5.4 [facility] Blood hemoglobin measurement (mass/volume)Ordered By: Talon Ray on 03-19-2022 Hemoglobin (Bld) [Mass/Vol] 14.6 g/dL 12.0-15.0 [facility] Blood lymphocytes/100 leukoc ytesOrdered By: Talon Ray on 03-19-2022 Lymphocytes/100 WBC (Bld) 18.9 % 19-41 [facility] Blood monocytes/100 leukocyt esOrdered By: Talon Ray on 03-19-2022 Monocytes/100 WBC (Bld) 9.4 % 0-10 [facility] Blood platelet mean volumeOr dered By: Talon Ray on 03-19-2022 Platelet mean volume (Bld) [Entitic vol] 9.5 fL 6.2-12.0 [facility] Determination of erythrocyte mean corpuscular volume (MCV)Ordered By: Talon Ray on 03-19-2022 MCV (RBC) [Entitic vol] 87.6 fL 81-99 [facility] Hematocrit Auto (Bld) [Volum e fraction]Ordered By: Talon Ray on 03-19-2022 Hematocrit (Bld) [Volume fraction] 42.3 % 37-47 [facility] - Hematology and Cell countsOrdered By: Talon Ray on 03-19-2022 Erythrocyte distribution width (RBC) [Entitic vol] 38.9 fL 35.1-43.9 [facility] Erythrocyte distribution width (RBC) [Ratio] 12.0 % 11.6-14.6 [facility] Immature granulocytes/100 WBC (Bld) 0.300 % 0.0-0.9 [facility] Comment on above: IG% - Immature Granu locytes (promyelocytes, myelocytes and metamyelocytes) > 1% indicates that a LEFT SHIFT is Present. MCH (RBC) [Entitic mass] 30.2 pg 27.0-32.0 [facility] Nucleated RBC/100 WBC (Bld) [Ratio] 0 % 0-5 [facility] MCHC Auto (RBC) [Mass/Vol]Or dered By: Talon Ray on 03-19-2022 MCHC (RBC) [Mass/Vol] 34.5 g/dL 32-36 [facility] Platelets bldOrdered By: Amelie Ray on 03-19-2022 Platelets (Bld) [#/Vol] 372 10*3/uL 150-450 [facility] Iron measurement (mass/mass) Ordered By: Shayla Hernandez on 03-18-2022 Iron (Unsp spec) [Mass/Mass] 49 ug/dL 50-170 [facility] Laboratory - Chemistry and C hemistry - challengeOrdered By: Shayla Hernandez on 03-18-2022 Transferrin [Mass/Vol] 346 mg/dL 192-364 [facility] Comment on above: Performed at: [address] Director: Pedro Garduno PhD, Phone: [phone] No Panel InformationOrdered By: Shayla Hernandez on 03-18-2022 Total Iron Binding Capacity 437 ug/dL 250-450 [facility] Serum or plasma ferritin waldo surement (mass/volume)Ordered By: Shayla Hernandez on 03-18-2022 Ferritin [Mass/Vol] 32 ng/mL 8-252 [facility] Serum or plasma iron saturat ion measurement (mass fraction)Ordered By: Shayla Hernandez on 03-18-2022 Iron saturation [Mass fraction] 11.2 % 15.0-55.0 [facility] Basophil percentageOrdered B y: Talon Ray on 01-12-2022 Cholesterol [Mass/Vol] 216 mg/dL <200 [facility] Comment on above: <200 mg/dL Desirable 200-240 mg/dL Borderline >240 mg/dL High Risk Triglyceride [Mass/Vol] 192 mg/dL <199 [facility] Comment on above: The drugs N-Acetylcy steine and Metamizole may falsely depress this assay.Serum Triglycerides Reference Interval Normal <150 mg/dL Borderline high 150 - 199 mg/dL High 200 - 499 mg/dL Very High > or = 500 mg/dL Iron measurement (mass/mass) Ordered By: Talon Ray on 01-12-2022 Iron (Unsp spec) [Mass/Mass] 76 ug/dL 50-170 [facility] Laboratory - Chemistry and C hemistry - challengeOrdered By: Talon Ray on 01-12-2022 Cobalamin (Vitamin B12) [Mass/Vol] 400 pg/mL 211-911 [facility] No Panel InformationOrdered By: Talon Ray on 01-12-2022 Total Iron Binding Capacity 463 ug/dL 250-450 [facility] Vitamin D 25-Hydroxy 26.6 ng/mL [facility] Comment on above: Vitamin D 25(OH) Sta tus Range Deficiency <20 ng/mL (50nmol/L) Insufficiency 20 - 30 ng/mL (50 - 75 nmol/L) Sufficiency 30 - 100 ng/mL (75 - 250 nmol/L) Toxicity >100 ng/mL (>250 nmol/L) Serum or plasma cholesterol in HDL measurement (mass/volume)Ordered By: Talon Ray on 01-12-2022 Cholesterol in HDL [Mass/Vol] 66 mg/dL >40 [facility] Comment on above: The drugs N-Acetylcy steine and Metamizole may falsely depress this assay. Reference Range HDL <40 mg/dL Low HDL Cholesterol HDL >or= 60 mg/dL High HDL Cholesterol Serum or plasma cholesterol in VLDL measurement (mass/volume)Ordered By: Talon Ray on 01-12-2022 Cholesterol in VLDL [Mass/Vol] 38 mg/dL 5-40 [facility] Serum or plasma ferritin waldo surement (mass/volume)Ordered By: Talon Ray on 01-12-2022 Ferritin [Mass/Vol] 25 ng/mL 8-252 [facility] Serum or plasma iron saturat ion measurement (mass fraction)Ordered By: Talon Ray on 01-12-2022 Iron saturation [Mass fraction] 16.4 % 15.0-55.0 [facility] Serum or plasma low density lipoprotein (LDL) cholesterol measurement (mass/volume)Ordered By: Talon Ray on 01-12-2022 Cholesterol in LDL [Mass/Vol] 112 mg/dL 0-130 [facility] Whole blood hemoglobin A1c/t otal hemoglobin ratio (mass fraction)Ordered By: Talon Ray on 01-12-2022 HbA1c (Bld) [Mass fraction] 4.7 % 3.8-5.6 [facility] Comment on above: Normal < 5.7 % Predi abetic 5.7 - 6.4 % Diabetic >or= 6.5 % Please note range changes. Absolute lymphocyte countOrd ered By: Shayla Hernandez on 12-15-2021 Lymphocytes Auto (Unsp spec) [#/Vol] 1.68 10*3/uL 0.83-4.51 [facility] Basophil percentageOrdered B y: Shayla Hernandez on 12-15-2021 Basophils/100 WBC (Bld) 0.7 % 0-1 [facility] Chloride [Moles/Vol] 106 mmol/L 98-107 [facility] Eosinophils/100 WBC (Bld) 4.6 % 0-5 [facility] Glucose [Mass/Vol] 79 mg/dL 74-106 [facility] Neutrophils (Bld) [#/Vol] 4.7 10*3/uL 2.0-7.7 [facility] Neutrophils/100 WBC (Bld) 61.7 % 47-70 [facility] Potassium [Moles/Vol] 3.9 mmol/L 3.5-5.1 [facility] Sodium [Moles/Vol] 138 mmol/L 136-145 [facility] WBC (Bld) [#/Vol] 7.7 10*3/uL 4.4-11.0 [facility] Blood erythrocytes count (nu mber/volume)Ordered By: Shayla Hernandez on 12-15-2021 RBC (Bld) [#/Vol] 4.40 10*6/uL 4.2-5.4 [facility] Blood hemoglobin measurement (mass/volume)Ordered By: Shayla Hernandez on 12-15-2021 Hemoglobin (Bld) [Mass/Vol] 13.7 g/dL 12.0-15.0 [facility] Blood lymphocytes/100 leukoc ytesOrdered By: Shayla Hernandez on 12-15-2021 Lymphocytes/100 WBC (Bld) 22.0 % 19-41 [facility] Blood monocytes/100 leukocyt esOrdered By: Shayla Hernandez on 12-15-2021 Monocytes/100 WBC (Bld) 10.7 % 0-10 [facility] Blood platelet mean volumeOr dered By: Shayla Hernandez on 12-15-2021 Platelet mean volume (Bld) [Entitic vol] 9.4 fL 6.2-12.0 [facility] Determination of erythrocyte mean corpuscular volume (MCV)Ordered By: Shayla Hernandez on 12-15-2021 MCV (RBC) [Entitic vol] 88.9 fL 81-99 [facility] Hematocrit Auto (Bld) [Volum e fraction]Ordered By: Shayla Hernandez on 12-15-2021 Hematocrit (Bld) [Volume fraction] 39.1 % 37-47 [facility] Laboratory - Chemistry and C hemistry - challengeOrdered By: Shayla Hernandez on 12-15-2021 CO2 [Moles/Vol] 26.0 mmol/L 21.0-32.0 [facility] Magnesium [Mass/Vol] 2.2 mg/dL 1.6-2.6 [facility] Urea nitrogen/Creatinine [Mass ratio] 8.9 mg/mg 10-20 [facility] Laboratory - Hematology and Cell countsOrdered By: Shayla Hernandez on 12-15-2021 Erythrocyte distribution width (RBC) [Entitic vol] 38.2 fL 35.1-43.9 [facility] Erythrocyte distribution width (RBC) [Ratio] 11.8 % 11.6-14.6 [facility] Immature granulocytes/100 WBC (Bld) 0.300 % 0.0-0.9 [facility] Comment on above: IG% - Immature Granu locytes (promyelocytes, myelocytes and metamyelocytes) > 1% indicates that a LEFT SHIFT is Present. MCH (RBC) [Entitic mass] 31.1 pg 27.0-32.0 [facility] Nucleated RBC/100 WBC (Bld) [Ratio] 0 % 0-5 [facility] MCHC Auto (RBC) [Mass/Vol]Or dered By: Shayla Hernandez on 12-15-2021 MCHC (RBC) [Mass/Vol] 35.0 g/dL 32-36 [facility] No Panel InformationOrdered By: Shayla Hernandez on 12-15-2021 Estimated GFR (MDRD) Amer 132 mL/min >60 [facility] Comment on above: GFR Calc Estimated GFR (MDRD) Non-Af Amer 109 mL/min >60 [facility] Comment on above: Non- GFR Calc Thyroid Stimulating Hormone (TSH) 1.44 uIU/mL 0.358-3.74 [facility] Platelets bldOrdered By: Chucky Hernandez on 12-15-2021 Platelets (Bld) [#/Vol] 337 10*3/uL 150-450 [facility] Serum or plasma calcium giovany urement (mass/volume)Ordered By: Shayla Hernandez on 12-15-2021 Calcium [Mass/Vol] 8.9 mg/dL 8.5-10.1 [facility] Serum or plasma creatinine m easurement (mass/volume)Ordered By: Shayla Hernandez on 12-15-2021 Creatinine [Mass/Vol] 0.68 mg/dL 0.55-1.02 [facility] Comment on above: The validity of the calculated GFR & GFRAA in patients over 70 years has not been determined. Clinical correlation is essential. Serum or plasma urea nitroge n measurement (mass/volume)Ordered By: Shayla Hernandez on 12-15-2021 Urea nitrogen [Mass/Vol] 6 mg/dL 7-18 [facility] Thin prep Papanicolaou smear with manual screeningOrdered By: Shayla Hernandez on 12-15-2021 Thin prep Papanicolaou smear with manual screening 6 5-15 [facility] No Panel Informationon 09-01 D-Dimer Quantitative (PE/DVT) < 0.27 FEU/ug/m 0.27-0.49 [facility] Work Phone: Comment on above: NORMAL D-Dimer level (<0.50) indicates no DVT or PE. Laboratory - Chemistry and C hemistry - challengeon 08-19-2021 HCG ( test) Ql (U) Negative [facility] Work Phone: Comment on above: Very dilute urine sp ecimens, as indicated by a low specificgravity, may not contain shared services representative levels of hCG. If is still suspected, a first morning urinespecimen should be collected 48 hours later and tested. Microbiology: Culture, Genit al Comprehensiveon 12-07-2016 CUV Neisseria or beta-hemolytic Streptococcus isolated. Invalid Interpretation Code [facility] Microbiology: (P) Culture, G enital Comprehensiveon 12-06-2016 CUV Neisseria or beta-hemolytic Streptococcus isolated. Invalid Interpretation Code [facility] Microbiology: (P) [facility] CUV . Invalid Interpretation Code [facility] Office Visit: Annualon 09-29 Documentation of current medications (procedure) Done Invalid Interpretation Code [facility] Fall risk assessment No Invalid Interpretation Code [facility] Tobacco smoking status NHIS Never Invalid Interpretation Code [facility] Tobacco smoking status NHIS Never smoker Invalid Interpretation Code [facility] Tobacco use [facility] Never smoker Invalid Interpretation Code [facility] Lab Report: Basic Metabolic Profile (BMP)on 06-03-2016 Anion gap 2 mmol/L Low 5-15 [facility] Work Phone: [phone] Anion gap 4 molar conc 2 Low 5-[address] [facility] BUN/Creatinine Ratio 9.5 RATIO Low 10-[address] [facility] Work Phone: [phone] Calcium 8.9 mg/dL Invalid Interpretation Code 8.5-10.1 [facility] Work Phone: [phone] Chloride 108 mmol/L High 98-107 [facility] Work Phone: [phone] CO2 26.0 mmol/L Invalid Interpretation Code 21.0-32.0 [facility] Work Phone: [phone] CO2 ppres (BldV) 26.0 mmol/L Invalid Interpretation Code 21.0-32.[address] [facility] Creatinine 0.74 mg/dL Invalid Interpretation Code 0.55-1.02 [facility] Work Phone: [phone] eGFR (non-black) 102 mL/min/{1.73_m2} Invalid Interpretation Code >60 [facility] Work Phone: [phone] eGFR (non-black) 124 mL/min/{1.73_m2} Invalid Interpretation Code >60 [facility] Work Phone: [phone] EST GFR - AA 124 mL/min Invalid Interpretation Code >[address] [facility] Glucose 80 mg/dL Invalid Interpretation Code 70-110 [facility] Work Phone: [phone] Glucose mass conc 80 mg/dL Invalid Interpretation Code 70-110 [facility] Work Phone: [phone] Potassium 3.8 mmol/L Invalid Interpretation Code 3.5-5.1 [facility] Work Phone: [phone] Sodium 136 mmol/L Invalid Interpretation Code 136-145 [facility] Work Phone: [phone] Urea nitrogen 7 mg/dL Invalid Interpretation Code 7-18 [facility] Work Phone: [phone] Lab Report: Magnesiumon 05-16 Magnesium 2.1 mg/dL Invalid Interpretation Code 1.8-2.4 [facility] Work Phone: [phone] Office Visiton 06-03-2016 Documentation of current medications (procedure) Done Invalid Interpretation Code [facility] Work Phone: [phone] Replaced Document: [facility] E CG Observationson 06-03-2016 EKG QRS axis 44 deg Invalid Interpretation Code [facility] Work Phone: [phone] electrocardiogram interpretation Marked sinus Bradycardia BORDERLINE RHYTHM Invalid Interpretation Code [facility] Work Phone: [phone] GE use only - for [employer] import when terms are not otherwise specified 406 ms Invalid Interpretation Code [facility] Work Phone: [phone] Interpretation Marked sinus Bradycardia BORDERLINE RHYTHM Invalid Interpretation Code [facility] Work Phone: [phone] P [place] 59 deg Invalid Interpretation Code [facility] Work Phone: [phone] P wave axis, electrocardiogram 59 deg Invalid Interpretation Code [facility] Work Phone: [phone] AK Interval 124 ms Invalid Interpretation Code [facility] Work Phone: [phone] AK interval, electrocardiogram 124 ms Invalid Interpretation Code [facility] Work Phone: [phone] Pulse (Heart Rate) 47 /min Invalid Interpretation Code [facility] Work Phone: [phone] QRS axis, electrocardiogram 44 deg Invalid Interpretation Code [facility] Work Phone: [phone] QRS Duration 86 ms Invalid Interpretation Code [facility] Work Phone: [phone] QRS duration, electrocardiogram 86 ms Invalid Interpretation Code [facility] Work Phone: [phone] QT Interval new path ms Invalid Interpretation Code [facility] Work Phone: [phone] QT interval, electrocardiogram new path ms Invalid Interpretation Code [facility] Work Phone: [phone] QTc Weir 406 ms Invalid Interpretation Code [facility] Work Phone: [phone] T [place] 26 deg Invalid Interpretation Code [facility] Work Phone: [phone] T wave axis, electrocardiogram 26 deg Invalid Interpretation Code [facility] Work Phone: [phone] Clinical 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 Tobacco use [facility] Never smoker Invalid Interpretation Code [facility] Work Phone: [phone] Clinical 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 Hematocrit (HCT) 44.3 % Invalid Interpretation Code [facility] Work Phone: [phone] Hemoglobin (HGB) 15.2 g/dL Invalid Interpretation Code [facility] Work Phone: [phone] Platelets 297 10*3/mm3 Invalid Interpretation Code [facility] Work Phone: [phone] Thyroid stimulating hormone (TSH) 1.93 u[iU]/mL Invalid Interpretation Code [facility] Work Phone: [phone] WBC (Leukocytes) 7.9 10*3/uL Invalid Interpretation Code [facility] Work Phone: [phone] Office Visit: Annualon 03-18 General categories [Interpretation] of Cervical or vaginal smear or scraping by Cyto stain ASCUS Invalid Interpretation Code [facility] Lab Report: CBCDon 3 Erythrocytes (RBC) 4.24 10*6/uL Normal 4.2-5.[address] [facility] Work Phone: [phone] Lab Report: LIPIDon 05-11-19 13 Cholesterol 197 mg/dL Normal 200 [facility] Work Phone: [phone] HDL Cholesterol 56 mg/dL Normal [facility] Work Phone: [phone] LDL Cholesterol 113 mg/dL Normal 0-130 [facility] Work Phone: [phone] Triglyceride 138 mg/dL Normal [facility] Work Phone: [phone] very low density lipoproteins 28 mg/dL Normal 5-40 [facility] Work Phone: [phone] Lab Report: LIVERon 05-11-19 13 Alanine aminotransferase (ALT) 15 U/L Normal 12-78 [facility] Work Phone: [phone] Albumin 3.7 g/dL Normal 3.4-5.0 [facility] Work Phone: [phone] Alkaline phosphatase (ALP) 49 U/L Low 50-136 [facility] Work Phone: [phone] ALP enzyme act/vol (Bld) 49 U/L Low 50-[address] [facility] Aspartate aminotransferase (AST) 13 U/L Low 15-37 [facility] Work Phone: [phone] Bilirubin (direct) 0.14 mg/dL Normal 0.00-0.30 [facility] Work Phone: [phone] Bilirubin (total) 0.50 mg/dL Normal 0.00-1.00 [facility] Work Phone: [phone] Lab Report: T4on 05-10-2012 Thyroxine (T4) 13.9 ug/dL Normal 4.8-13.9 [facility] Work Phone: [phone] Replaced Document: Elmo E CG Observationson 05-10-2012 Pulse (Heart Rate) 412 ms Invalid Interpretation Code [facility] Work Phone: [phone] Vital Signs Date Time Vital Sign Value Performing Clinician Facility 03-01-2022 15:53-0500 Body height 162.56 cm [employer] Talon Ray [employer] Work Phone: [facility] 03-01-2022 15:53-0500 Body mass index (BMI) [Ratio] 27.3 kg/m2 [employer] Talon Ray [employer] Work Phone: [facility] 03-01-2022 15:53-0500 Body weight 72.12 kg [employer] Talon Ray [employer]ISHING Work Phone: [facility] 03-01-2022 15:53-0500 Diastolic blood pressure 79 mm[Hg] [employer]ISH[employer] Talon Ray [employer] FINISHING Work Phone: [facility] 03-01-2022 15:53-0500 Systolic blood pressure 128 mm[Hg] [employer] Talon Ray [employer]ISH[employer] Work Phone: [facility] 01-06-2022 16:37-0500 Body temperature 97.1 [degF] [employer] Talon Ray [employer]ISH[employer] Work Phone: [facility] 01-06-2022 16:37-0500 Body weight 66.9 kg [employer]ISH[employer] Talon Ray [employer]ISHING Work Phone: [facility] 01-06-2022 16:37-0500 Diastolic blood pressure 88 mm[Hg] [employer] Talon Ray [employer] FINISHING Work Phone: [facility] 01-06-2022 16:37-0500 Heart rate 73 /min [employer] Talon Ray [employer] FINISHING Work Phone: [facility] 01-06-2022 16:37-0500 Respiratory rate 18 /min [employer]ISH[employer] Talon Ray [employer] FINISHING Work Phone: [facility] 01-06-2022 16:37-0500 SaO2% (BldA) [Mass fraction] 99 % [employer]ISH[employer] Talon Ray [employer] FINISHING Work Phone: [facility] 01-06-2022 16:37-0500 Systolic blood pressure 134 mm[Hg] [employer] FINISHING[employer] Talon Ray [employer]PERVISOR FINISHING Work Phone: [facility] 12-15-2021 15:22-0400 Body height 162.56 cm [employer] FINISH[employer] Talon Ray [employer] FINISHING Work Phone: [facility] Work Phone: 12-15-2021 15:22-0400 Body mass index (BMI) [Ratio] 25.2 kg/m2 [employer] Talon Ray [employer]ISHING Work Phone: [facility] 12-15-2021 15:22-0400 Body weight 66.67 kg [employer] FINISH[employer]-C Taoln Ray SUPERVISOR FINISHING Work Phone: [facility] 12-15-2021 15:22-0400 Diastolic blood pressure 79 mm[Hg] [employer] FINISH[employer] Talon Ray [employer] FINISHING Work Phone: [facility] 12-15-2021 15:22-0400 Heart rate 85 /min [employer] Talon Ray [employer]ISHING Work Phone: [facility] 12-15-2021 15:22-0400 Respiratory rate 18 /min [employer] Talon Ray [employer]ISHING Work Phone: [facility] 12-15-2021 15:22-0400 SaO2% (BldA) [Mass fraction] 100 % [employer]ISH[employer] Talon Ray [employer]ISHING Work Phone: [facility] 12-15-2021 15:22-0400 Systolic blood pressure 125 mm[Hg] [employer] FINISHING-C Talon Ray [employer] FINISHING Work Phone: [facility] 09-01-2021 15:00-0400 Body height 162.56 cm [employer] FINISH[employer] Talon Ray [employer] FINISHING Work Phone: [facility] Work Phone: 09-01-2021 15:00-0400 Body mass index (BMI) [Ratio] 23.6 kg/m2 [employer]ISH[employer] Talon Ray [employer]PER[employer] FINISHING Work Phone: [facility] Work Phone: 09-01-2021 15:00-0400 Body weight 62.59 kg [employer]PERVIS[employer] FINISH[employer] Talon Ray [employer] FINISHING Work Phone: [facility] Work Phone: 09-01-2021 15:00-0400 Diastolic blood pressure 77 mm[Hg] SU[employer] FINISHING-C Talon Ray [employer] FINISHING Work Phone: [facility] Work Phone: 09-01-2021 15:00-0400 Heart rate 69 /min [employer]ISH[employer] Talon Ray [employer] FINISHING Work Phone: [facility] Work Phone: 09-01-2021 15:00-0400 SaO2% (BldA) [Mass fraction] 98 % [employer]ISH[employer] Talon Ray [employer] FINISHING Work Phone: [facility] Work Phone: 09-01-2021 15:00-0400 Systolic blood pressure 126 mm[Hg] [employer] FINISHING-C Talon Ray [employer]PER[employer] FINISHING Work Phone: [facility] Work Phone: 08-19-2021 07:14-0400 Body temperature 97.4 [degF] [employer] FINISHING[employer] Talon Ray [employer] FINISHING Work Phone: [facility] Work Phone: 08-19-2021 07:14-0400 Diastolic blood pressure 63 mm[Hg] [employer] FINISHING[employer]C Talon Ray [employer] FINISHING Work Phone: [facility] Work Phone: 08-19-2021 07:14-0400 Heart rate 62 /min [employer]ISH[employer] Talon Ray [employer] FINISHING Work Phone: [facility] Work Phone: 08-19-2021 07:14-0400 Respiratory rate 14 /min [employer] FINISHING[employer] Talon Ray [employer] FINISHING Work Phone: [facility] Work Phone: 08-19-2021 07:14-0400 SaO2% (BldA) [Mass fraction] 100 % [employer] FINISHING-C Talon Ray [employer]PER[employer] FINISHING Work Phone: [facility] Work Phone: 08-19-2021 07:14-0400 Systolic blood pressure 103 mm[Hg] SUPERVISOR FINISHING-C Talon Ray SUPER[employer] FINISHING Work Phone: [facility] Work Phone: 08-19-2021 06:11-0400 Body height 162.56 cm [employer]PERVIS[employer] FINISHING-C Talon Ray [employer] FINISHING Work Phone: [facility] Work Phone: 08-19-2021 06:11-0400 Body mass index (BMI) [Ratio] 23.1 kg/m2 [employer]ISH[employer] Talon Ray [employer]PER[employer] FINISHING Work Phone: [facility] Work Phone: 08-19-2021 06:11-0400 Body weight 61 kg [employer] FINISHING-C Talon Ray [employer] FINISHING Work Phone: [facility] Work Phone: 05-26-2021 13:03-0400 Body temperature 98.5 [degF] [employer] FINISHING[employer] Talon Ray [employer]PER[employer] FINISHING Work Phone: [facility] Work Phone: 05-26-2021 13:03-0400 Diastolic blood pressure 68 mm[Hg] SU[employer] FINISHING-C Talon Ray [employer] FINISHING Work Phone: [facility] Work Phone: 05-26-2021 13:03-0400 Heart rate 77 /min [employer]ISH[employer] Talon Ray [employer] FINISHING Work Phone: [facility] Work Phone: 05-26-2021 13:03-0400 Respiratory rate 14 /min [employer]ISH[employer] Talon Ray [employer] FINISHING Work Phone: [facility] Work Phone: 05-26-2021 13:03-0400 SaO2% (BldA) [Mass fraction] 99 % [employer] FINISHING[employer] Talon Ray [employer] FINISHING Work Phone: [facility] Work Phone: 05-26-2021 13:03-0400 Systolic blood pressure 112 mm[Hg] [employer]PER[employer] FINISHING-C Talon Ray [employer]PERVIS[employer] FINISHING Work Phone: [facility] Work Phone: 04-30-2021 08:31-0400 Body temperature 98.6 [degF] [employer] FINISHING-C Talon Ray [employer]PERVIS[employer] FINISHING Work Phone: [facility] Work Phone: 04-30-2021 08:31-0400 Diastolic blood pressure 68 mm[Hg] SUPERVIS[employer] FINISHING-C Talon Ray [employer] FINISHING Work Phone: [facility] Work Phone: 04-30-2021 08:31-0400 Heart rate 100 /min [employer]ISH[employer] Talon Ray [employer] FINISHING Work Phone: [facility] Work Phone: 04-30-2021 08:31-0400 Respiratory rate 14 /min [employer] FINISHING-C Talon Ray [employer]PER[employer] FINISHING Work Phone: [facility] Work Phone: 04-30-2021 08:31-0400 SaO2% (BldA) [Mass fraction] 98 % [employer] FINISHING-C Talon Ray [employer]PER[employer] FINISHING Work Phone: [facility] Work Phone: 04-30-2021 08:31-0400 Systolic blood pressure 110 mm[Hg] SUPERVISOR FINISHING-C Tlaon Ray [employer]PER[employer] FINISHING Work Phone: [facility] Work Phone: 09-29-2016 13:22-0400 BMI (Body Mass Index) 19.57 kg/m2 [facility] 09-29-2016 13:22-0400 Body Temperature 98.3 [degF] Ashley Dutton SUPERVISOR FINISHING [facility] 09-29-2016 13:22-0400 Body Temperature 98.29 [degF] Ashley Dutton SUPERVISOR FINISHING [facility] 09-29-2016 13:22-0400 BP Diastolic 74 mm[Hg] Ashley Dutton SUPERVISOR FINISHING [facility] 09-29-2016 13:22-0400 BP Systolic 108 mm[Hg] Ashley Dutton SUPERVISOR FINISHING [facility] [place] 09-29-2016 13:22-0400 Height 162.56 cm Ashley Dutton NP [facility] [place] 09-29-2016 13:22-0400 Pulse (Heart Rate) 74 /min Ashley Dutton SUPERVISOR FINISHING [facility] 09-29-2016 13:22-0400 Respiratory Rate 16 /min Ashley Dutton SUPERVISOR FINISHING [facility] 09-29-2016 13:22-0400 Weight 51.71 kg Ashley Dutton NP [facility] [place] 06-03-2016 15:37-0400 Heart rate 47 /min Aslhey Dutton NP [facility] [facility] 06-03-2016 15:20-0400 BMI (Body Mass Index) 19.57 kg/m2 Shayla Benitez RN [facility] Work Phone: 06-03-2016 15:20-0400 BP Diastolic 68 mm[Hg] Shayla Benitez RN [facility] Work Phone: 06-03-2016 15:20-0400 BP Systolic 104 mm[Hg] Shayla Benitez RN [facility] Work Phone: 06-03-2016 15:20-0400 Pulse (Heart Rate) 64 /min [facility] Work Phone: 06-03-2016 15:20-0400 Respiratory Rate 16 /min [facility] Work Phone: 06-03-2016 15:20-0400 Weight 51.71 kg Shayla Benitez RN [facility] Work Phone: 03-25-2016 06:29-0500 Body Temperature 98.2 [degF] [facility] Work Phone: 03-25-2016 06:29-0500 BSA (Body Surface Area) 1.81 m2 Shayla Benitez RN [facility] Work Phone: 03-25-2016 06:29-0500 Pulse Oximetry 98 % Shayla Benitez RN [facility] Work Phone: 05-10-2012 08:56-0400 Heart rate 412 ms Ashley Dutton NP [facility] 05-10-2012 08:35-0400 Height 162.56 cm Shayla Benitez RN [facility] Work Phone: Encounters Encounter Date Encounter Type Care Provider Facility Start: 09-04-2024 End: 09-04-2024 ambulatory Maria Teresa [place] Facility:[facility] Start: 07-12-2024 End: 07-12-2024 ambulatory Maria Teresa Rik Facility:[facility] Start: 07-09-2024 ambulatory Maria Teresa Rik Facility :[facility] Start: 06-20-2024 ambulatory Tara Hollisan Facility:[facility] Start: 06-20-2024 End: 06-20-2024 ambulatory Maria Teresa Rik Facility:[facility] Start: 06-05-2024 End: 06-05-2024 ambulatory Maria Teresa Rik Facility:[facility] Start: 06-01-2024 End: 06-01-2024 ambulatory Maria Teresa [place] Facility:[facility] Start: 05-10-2024 End: 05-10-2024 ambulatory Maria Teresa Rik Facility:[facility] Start: 05-07-2024 ambulatory Nneka Vergara y:[facility] Start: 04-26-2024 End: 04-26-2024 ambulatory Marjorie Linda Facility:[facility] Start: 04-22-2024 End: 04-22-2024 ambulatory Maria Teresa [place] Facility:[facility] Start: 04-17-2024 End: 04-17-2024 ambulatory Maria Teresa Rik Facility:[facility] Start: 04-17-2024 End: 04-17-2024 ambulatory Maria Teresa [place] Facility:[facility] Start: 03-22-2024 End: 03-22-2024 ambulatory Lita Ferullo Facility:[facility] Start: 03-22-2024 End: 03-22-2024 ambulatory Maria Teresa [place] Facility:[facility] Start: 03-08-2024 End: 03-08-2024 ambulatory Serge Ellis Facility:[facility] Start: 01-27-2024 End: 01-27-2024 ambulatory Lita Ferullo Facility:[facility] Start: 01-11-2024 End: 01-11-2024 ambulatory Lita Ferullo Facility:[facility] Start: 12-16-2023 End: 12-16-2023 ambulatory Lita Ferdanielo Facility:[facility] Start: 12-12-2023 End: 12-12-2023 ambulatory Lita Ferullo Facility:[facility] Start: 12-12-2023 End: 12-12-2023 ambulatory Litajavier Terano Facility:[facility] Start: 11-30-2023 End: 12-01-2023 ambulatory Lita [facility] Facility:[facility] Start: 03-19-2022 End: 03-19-2022 ambulatory [employer]C Talon Ray [employer] Work Phone: [facility] Work Phone: Start: 03-19-2022 End: 03-19-2022 Patient encounter procedure SUPERVISOR FINISHING-C Talon Ray SU[employer]ISHING Work Phone: [facility] Start: 03-18-2022 End: 03-18-2022 ambulatory SUPERVISOR FINISHING-C Talon Valenciader SUPERVISOR FINISHING Work Phone: [facility] Work Phone: Start: 03-18-2022 End: 03-18-2022 Patient encounter procedure SUPERVISOR FINISHING-C Talon Ray SUPERVISOR FINISHING [facility] Start: 03-01-2022 End: 03-01-2022 Patient encounter procedure SUPERVISOR FINISHING-C Talon Ray SUPERVISOR FINISHING Work Phone: [facility] Start: 02-19-2022 End: 02-19-2022 Patient encounter procedure SUPERVISOR FINISHING-C Talon Ray SUPERVISOR FINISHING Work Phone: [facility] Start: 01-12-2022 End: 01-12-2022 ambulatory SUPERVISOR FINISHING-C Talon Valenciader SUPERVISOR FINISHING Work Phone: [facility] Work Phone: Start: 01-12-2022 End: 01-12-2022 Patient encounter procedure SUPERVISOR FINISHING-C Talon Valenciader SUPERVISOR FINISHING [facility] Start: 01-06-2022 Patient encounter status SUPERVISOR FINISHING-C Talon Valenciader SUPERVISOR FINISHING Work Phone: [facility] Start: 01-06-2022 End: 01-06-2022 Encounter for general adult medical examination without abnormal findings SUPERVISOR FINISHING-C Talon Ray SUPERVISOR FINISHING Work Phone: [facility] Start: 01-06-2022 End: 01-06-2022 Patient encounter procedure SUPERVISOR FINISHING-C Talon Ray SUPERVISOR FINISHING Work Phone: [facility] Start: 12-24-2021 Non-patient / Non-visit SUPERVISOR FINISHING-C Talon Ray SUPERVISOR FINISHING Work Phone: [facility] Start: 12-24-2021 End: 12-24-2021 ambulatory SUPERVISOR FINISHING-C Talon Valenciader SUPERVISOR FINISHING Work Phone: [facility] Work Phone: Start: 12-24-2021 End: 12-24-2021 Patient encounter procedure SUPERVISOR FINISHING-C Talon Ray SUPERVISOR FINISHING Work Phone: [facility] Start: 12-15-2021 End: 12-15-2021 ambulatory SUPERVISOR FINISHING-C Talon Valenciader SUPERVISOR FINISHING Work Phone: [facility] Work Phone: Start: 12-15-2021 End: 12-15-2021 Patient encounter procedure SUPERVISOR FINISHING-C Talon Ray SUPERVISOR FINISHING Work Phone: [facility] Start: 12-15-2021 End: 12-15-2021 Patient encounter procedure SUPERVISOR FINISHING-C Talon Ray SUPERVISOR FINISHING Work Phone: [facility] Start: 10-23-2021 End: 10-23-2021 ambulatory SUPERVISOR FINISHING-C Talon Ray SUPERVISOR FINISHING Work Phone: [facility] Work Phone: Start: 10-23-2021 End: 10-23-2021 Patient encounter procedure SUPERVISOR FINISHING-C Talon Valenciader SUPERVISOR FINISHING Work Phone: [facility], [facility] Start: 10-14-2021 End: 10-14-2021 ambulatory SUPERVISOR FINISHING-C Talon Valenciader SUPERVISOR FINISHING Work Phone: [facility] Work Phone: Start: 10-14-2021 End: 10-14-2021 Patient encounter procedure SUPERVISOR FINISHING-C Talon Ray SUPERVISOR FINISHING [facility] Start: 09-30-2021 Non-patient / Non-visit SUPERVISOR FINISHING-C Talon Ray SUPERVISOR FINISHING Work Phone: [facility] Start: 09-30-2021 End: 09-30-2021 ambulatory SUPERVISOR FINISHING-C Talon Ray SUPERVISOR FINISHING Work Phone: [facility] Work Phone: Start: 09-30-2021 End: 09-30-2021 Patient encounter procedure SUPERVISOR FINISHING-C Talon Ray SUPERVISOR FINISHING Work Phone: [facility] Start: 09-01-2021 End: 09-01-2021 Patient encounter procedure SUPERVISOR FINISHING-C Talon Ray SUPERVISOR FINISHING Work Phone: [facility] Start: 09-01-2021 Non-patient / Non-visit SUPERVISOR FINISHING-C Talon Ray SUPERVISOR FINISHING Work Phone: [facility] Start: 08-19-2021 Non-patient / Non-visit SUPERVISOR FINISHING-C Talon Ray SUPERVISOR FINISHING Work Phone: [facility] Start: 08-19-2021 End: 08-19-2021 Admission to same day surgery center SUPERVISOR FINISHING-C Talon Ray SUPERVISOR FINISHING Work Phone: [facility] Start: 07-31-2021 End: 07-31-2021 Patient encounter procedure SUPERVISOR FINISHING-C Talon Ray SUPERVISOR FINISHING Work Phone: [facility] Start: 07-30-2021 End: 07-30-2021 Patient encounter procedure SUPERVISOR FINISHING-C Talon Ray SUPERVISOR FINISHING Work Phone: [facility] Start: 06-02-2021 End: 06-02-2021 Patient encounter procedure SUPERVISOR FINISHING-C Talon Ray SUPERVISOR FINISHING Work Phone: [facility] Start: 05-26-2021 End: 05-26-2021 Patient encounter procedure SUPERVISOR FINISHING-C Talon Ray SUPERVISOR FINISHING Work Phone: [facility] Start: 04-30-2021 End: 04-30-2021 Patient encounter procedure SUPERVISOR FINISHING-C Talon Ray SUPERVISOR FINISHING Work Phone: [facility] Procedures Date Procedure Procedure Detail Performing Clinician Start: 12-15-2021 Plain chest X-ray SUPERVISOR FINISHING-C Talon Ray SU[employer] FINISHING Work Phone: Start: 10-23-2021 Radiography of esophagus SUPERVISOR FINISHING-C Talon Ray SU[employer]ISHING Work Phone: Start: 10-14-2021 Radionuclide gastric emptying study SUPERVISOR FINISHING-C Talon Valenciader [employer]ISH[employer] Work Phone: Start: 08-19-2021 Esophagogastroduodenoscopy SUPERVISOR FINISHING-C Talon Diallo er SUPERVIS[employer] FINISHING Work Phone: Start: 09-29-2016 Gynecologic examination Routine gynecological examination Ashley Dutton NP Start: 09-29-2016 End: 09-29-2016 Documentation of current medications Ashley Dutton [employer]ISH[employer] Start: 06-03-2016 End: 06-04-2016 *ROCÍO Oliveira MD Start: 06-03-2016 End: 07-01-2016 Cardiovascular stress test using treadmill Elpidio Oliveira MD Start: 06-03-2016 End: 07-01-2016 Echocardiography Elpidio Oliveira MD Start: 06-03-2016 End: 06-04-2016 Magnesium [Mass/volume] in Serum or Plasma Elpidio Oliveira MD Start: 06-03-2016 End: 06-04-2016 *ROCÍO Oliveira MD Start: 06-03-2016 End: 07-01-2016 Cardiovascular stress test using treadmill Elpidio Oliveira MD Start: 06-03-2016 End: 07-01-2016 Echocardiography Elpidio Oliveira MD Start: 06-03-2016 End: 06-04-2016 Magnesium Elpidio Oliveira MD Start: 05-10-2012 End: 05-10-2012 Ecg routine ecg w/least 12 lds w/i&r Elpidio Oliveira MD Start: 05-10-2012 End: 05-10-2012 Follow Up Appt 6 weeks Elpidio Oliveira MD Start: 05-10-2012 End: 05-10-2012 MMM Elpidio Oliveira MD Start: 05-10-2012 End: 05-10-2012 Electrocardiogram, complete Elpidio leahy MD Start: 05-10-2012 End: 05-10-2012 Follow Up Appt 6 weeks Elpidio Oliveira MD Start: 05-10-2012 End: 05-10-2012 MMM Elpiido Oliveira MD Plan of Treatment Date Care Activity Detail Author Start: 08-19-2021 Egd removal tumor polyp/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 Start: 12-03-2016 End: 12-03-2016 Bacteria genital culture *CUV - Culture, VAG/CX Comprehensive [facility] Start: 09-29-2016 End: 09-29-[address] [facility] Start: 07-01-2016 End: 07-01-2016 Ct thorax w/contrast material CT Chest with Contrast [facility] Work Phone: Start: 07-01-2016 End: 07-01-2016 Ct thorax w/dye CT Chest with Contrast [facility] Work Phone: Start: 06-03-2016 End: 06-04-2016 *BMP *BMP [facility] Work Phone: Start: 06-03-2016 End: 06-03-2016 Cardiovascular stress test using treadmill Treadmill stress test (no imaging) [facility] Work Phone: Start: 06-03-2016 End: 06-03-2016 Ecg routine ecg w/least 12 lds w/i&r EKG (In office) [facility] Work Phone: Start: 06-03-2016 End: 06-03-2016 Echocardiography Echocardiogram (complete) [facility] Work Phone: Start: 06-03-2016 End: 06-03-2016 Follow Up Appt 1 year Follow Up Appt 1 year [facility] Work Phone: Start: 06-03-2016 End: 06-04-2016 Magnesium *Magnesium [facility] Work Phone: Start: 06-03-2016 End: 06-03-2016 PFM PFM [facility] Work Phone: Start: 06-03-2016 End: 06-04-2016 *BMP *BMP [facility] Work Phone: Start: 06-03-2016 End: 06-03-2016 Cardiovascular stress test using treadmill Treadmill stress test (no imaging) [facility] Work Phone: Start: 06-03-2016 End: 06-03-2016 Echocardiography Echocardiogram (complete) [facility] Work Phone: Start: 06-03-2016 End: 06-03-2016 Electrocardiogram, complete EKG (In office) [facility] Work Phone: Start: 06-03-2016 End: 06-03-2016 Follow Up Appt 1 year Follow Up Appt 1 year [facility] Work Phone: Start: 06-03-2016 End: 06-04-2016 Magnesium *Magnesium [facility] Work Phone: Start: 06-03-2016 End: 06-03-2016 PFM PFM [facility] Work Phone: Start: 05-10-2012 End: 05-10-2012 *BMP *BMP [facility] Work Phone: Start: 05-10-2012 End: 05-10-2012 *CBC with Differential *CBC with Differential [facility] Work Phone: Start: 05-10-2012 End: 05-10-2012 *Hepatic Function Panel *Hepatic Function Panel [facility] Work Phone: Start: 05-10-2012 End: 05-10-2012 Chest x-ray X-Ray, Chest, PA & Lateral [facility] Work Phone: Start: 05-10-2012 End: 05-10-2012 Ecg routine ecg w/least 12 lds w/i&r EKG (In office) [facility] Work Phone: Start: 05-10-2012 End: 05-22-2012 Echocardiography Echocardiogram (complete) [facility] Work Phone: Start: 05-10-2012 End: 05-10-2012 Follow Up Appt 6 weeks Follow Up Appt 6 weeks [facility] Work Phone: Start: 05-10-2012 End: 05-10-2012 Lipid panel [AGGREGATE] *Lipid Profile [facility] Work Phone: Start: 05-10-2012 End: 05-10-2012 MMM MMM [facility] Work Phone: Start: 05-10-2012 End: 05-10-2012 Thyroid stimulating hormone (TSH) *TSH [facility] Work Phone: Start: 05-10-2012 End: 05-10-2012 Thyroxine (T4) *T4 (Total) [facility] Work Phone: Start: 05-10-2012 End: 05-10-2012 Xtrnl mobile cv telemetry w/i&report 30 days 30 Day Holter Monitor [facility] Work Phone: Start: 05-10-2012 End: 05-10-2012 *BMP *BMP [facility] Work Phone: Start: 05-10-2012 End: 05-10-2012 *CBC with Differential *CBC with Differential [facility] Work Phone: Start: 05-10-2012 End: 05-10-2012 *Hepatic Function Panel *Hepatic Function Panel [facility] Work Phone: Start: 05-10-2012 End: 05-10-2012 Chest x-ray X-Ray, Chest, PA & Lateral [facility] Work Phone: Start: 05-10-2012 End: 05-22-2012 Echocardiography Echocardiogram (complete) [facility] Work Phone: Start: 05-10-2012 End: 05-10-2012 Electrocardiogram, complete EKG (In office) [facility] Work Phone: Start: 05-10-2012 End: 05-10-2012 Follow Up Appt 6 weeks Follow Up Appt 6 weeks [facility] Work Phone: Start: 05-10-2012 End: 05-10-2012 Lipid panel [AGGREGATE] *Lipid Profile [facility] Work Phone: Start: 05-10-2012 End: 05-10-2012 MMM MMM [facility] Work Phone: Start: 05-10-2012 End: 05-10-2012 Remote 30 day ecg rev/report 30 Day Holter Monitor [facility] Work Phone: Start: 05-10-2012 End: 05-10-2012 Thyroid stimulating hormone (TSH) *TSH [facility] Work Phone: Start: 05-10-2012 End: 05-10-2012 Thyroxine (T4) *T4 (Total) [facility] Work Phone: Cardiovascular stres s testing [facility] Work Phone: Patient Education Desogestrel%2F Ethinyl%20 Estradiol%20(Oral)%20(Ta blet) [facility] Work Phone: Patient referral [facility] Work Phone: Radionuclide gastric emptying study [facility] Work Phone: Radionuclide imaging of liver and/or biliary tract using radioactive isotope [facility] Work Phone: [facility] Work Phone: [facility] Immunizations Immunization Date Immunization Notes Care Provider Fa iggy 11-27-2021 Covid Moderna Bivale nt Booster SUPERVISOR FINISHING-C Talon Ray [employer]ISHING Work Phone: [facility] 11-13-2021 influenza, seasonal, injectable SUPERVISOR FINISHING-C Talon Ray SUPERVISOR FINISHING Work Phone: [facility] 12-17-2020 Covid (Moderna) SUPERVISOR FINISHING-C Talon Yo sruthi SUPERVISOR FINISHING Work Phone: [facility] 11-11-2020 influenza, seasonal, injectable SUPERVISOR FINISHING-C Talon Ray SUPERVISOR FINISHING Work Phone: [facility] 05-12-2020 Covid (Moderna) SUPERVISOR FINISHING-C Talon Yo sruthi SUPERVISOR FINISHING Work Phone: [facility] 04-14-2020 Covid (Moderna) SUPERVISOR FINISHING-C Talon Yo sruthi SUPERVIS[employer] FINISHING Work Phone: [facility] 11-07-2019 influenza, injectable,quadrivalent , preservative free, roller pneumatic-C Talon Ray SUPERVISOR FINISHING Work Phone: [facility] 12-05-2018 influenza, seasonal, injectable SUPERVISOR FINISHING-C Talon Ray SUPERVISOR FINISHING Work Phone: [facility] 11-11-2017 influenza, seasonal, injectable SUPERVISOR FINISHING-C Talon Ray SUPERVISOR FINISHING Work Phone: [facility] 11-10-2016 influenza, seasonal, injectable SUPERVISOR FINISHING-C Talon Ray SUPERVISOR FINISHING Work Phone: [facility] Payers Date Payer Category Payer Unknown [id number] 2023 Self-pay [id number] 2020 Private Health Insurance [id number] 2016 Unknown [id number] Private Health Insurance [id number] Unknown [id number] Unknown [id number] 2.16.8 [id number] Unknown [id number] 2.16.8 [id number] Unknown [id number] 2.16.8 [id number] Unknown [id number] 2.16.8 [id number] Unknown [id number] 2.16.8 [id number] Unknown [id number] 2.16.8 [id number] Unknown [id number] 2.16.8 40.1.486902.3.579.2.462 Unknown [id number] 2.16.8 40.1.997190.3.579.2.462 Unknown [id number] 2.16.8 40.1.866449.3.579.2.462 Unknown [id number] 2.16.8 40.1.570649.3.579.2.462 Unknown [id number] 2.16.8 40.1.270156.3.579.2.462 Unknown [id number] 2.16.8 40.1.505194.3.579.2.462 Unknown [id number] 2.16.8 40.1.264142.3.579.2.462 Unknown [id number] 2.16.8 40.1.890549.3.579.2.462 Unknown [id number] 2.16.8 40.1.167934.3.579.2.462 Unknown [id number] 2.16.8 40.1.238541.3.579.2.462 Unknown [id number] 2.16.8 40.1.168852.3.579.2.462 Unknown [id number] 2.16.8 40.1.541786.3.579.2.462 Unknown [id number] 2.16.8 40.1.732053.3.579.2.462 Unknown [id number] 2.16.8 40.1.758239.3.579.2.462 Unknown [id number] 2.16.8 40.1.526322.3.579.2.462 Unknown [id number] 2.16.8 [id number] Unknown [id number] 2.16.8 [id number] Unknown [id number] 2.16.8 [id number] Unknown [id number] 2.16.8 [id number] Unknown [id number] 2.16.8 [id number] Social History Date Type Detail Facility [facility] Work Phone: Start: 08-13-2021 End: 03-01-2022 Tobacco smoking status NHIS Unknown if ever smoked [facility] Start: 05-15-2020 Non-smoker [facility] Start: 1990 Sex Assigned At Female [facility] Medical Equipment Procedure Code Equipment Code Equipment Origin al Text Equipment Identifier Dates EGD, with monitored anesthesia care PROBE,PH CAPSULE WITH DEL SYS FDA Start: 08-19-2021 EGD, with monitored anesthesia care PROBE,PH CAPSULE WITH DEL SYS FDA Start: 08-19-2021 EGD, with monitored anesthesia care PROBE,PH CAPSULE WITH DEL SYS FDA Start: 08-19-2021 EGD, with monitored anesthesia care PROBE,PH CAPSULE WITH DEL SYS FDA Start: 08-19-2021 EGD, with monitored anesthesia care PROBE,PH CAPSULE WITH DEL SYS FDA Start: 08-19-2021 EGD, with monitored anesthesia care PROBE,PH CAPSULE WITH DEL SYS FDA Start: 08-19-2021 EGD, with monitored anesthesia care PROBE,PH CAPSULE WITH DEL SYS FDA Start: 08-19-2021 EGD, with monitored anesthesia care PROBE,PH CAPSULE WITH DEL SYS FDA Start: 08-19-2021 EGD, with monitored anesthesia care PROBE,PH CAPSULE WITH DEL SYS FDA Start: 08-19-2021 Goals Date Patient Goal Desired Activity /State Mental Status Date Assessment Result Facility 08-19-2021 Cognitive function Voice/Name;Touch/Jason benitez [facility] Work Phone: Evaluation note Note Date & Type Note Facility Evaluation note Diagnosis Onset Date Asthma with allergic rhiniti s with acute exacerbation chronic Asthma with allergic rhiniti s with acute exacerbation chronic GERD (gastroesophageal reflux disease) acute [facility] Work Phone: Evaluation note Note Date & Type Note Facility Evaluation note Diagnosis Onset Date Asthma with allergic rhiniti s with acute exacerbation chronic Asthma with allergic rhiniti s with acute exacerbation chronic GERD (gastroesophageal reflux disease) acute GERD (gastroesophageal reflux disease) acute Regurgitation of food acute [facility] Work Phone: Evaluation note Note Date & Type Note Facility Evaluation note Diagnosis Onset Date Asthma with allergic rhiniti s with acute exacerbation chronic GERD (gastroesophageal reflux disease) acute GERD (gastroesophageal reflux disease) acute Regurgitation of food acute [facility] Work Phone: Evaluation note Note Date & Type Note Facility Evaluation note Diagnosis Onset Date GERD (gastroesophageal reflux disease) acute Regurgitation of food acute Chest pain acute CARTER (dyspnea on exertion) ac igiugig Bicuspid aortic valve chroni c Mitral valve prolapse chroni c [facility] Work Phone: Evaluation note Note Date & Type Note Facility Evaluation note Diagnosis Onset Date Chest pain acute CARTER (dyspnea on exertion) ac igiugig Bicuspid aortic valve chroni c Mitral valve prolapse chroni c [facility] Work Phone: Evaluation note Note Date & Type Note Facility Evaluation note Diagnosis Onset Date Chest pain acute CARTER (dyspnea on exertion) ac igiugig Bicuspid aortic valve chroni c Mitral valve prolapse chroni c Encounter for preventative a dult health care examination chronic Restless leg syndrome chroni c [facility] Work Phone: Evaluation note Note Date & Type Note Facility Evaluation note Diagnosis Onset Date Chest pain acute CARTER (dyspnea on exertion) ac igiugig Bicuspid aortic valve chroni c Mitral valve prolapse chroni c Encounter for preventative a dult health care examination chronic Restless leg syndrome chroni c Anxiety acute [facility] Work Phone: Chief Complaint and Reason for Visit Chief Complaint FINGER LACERATION 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 allergies abd issues Reason for Visit Asthma with allergic rhinitis with acute exacerbation Asthma with allergic rhinitis with acute exacerbation GERD (gastroesophageal reflux disease) Chief Complaint 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 allergies abd issues FU EDG/ALEJANDRE Reason for Visit Asthma with allergic rhinitis with acute exacerbation Asthma with allergic rhinitis with acute exacerbation GERD (gastroesophageal reflux disease) GERD (gastroesophageal reflux disease) Regurgitation of food Chief Complaint allergies abd issues FU EDG/ALEJANDRE RIGHT LOWER LEG PAIN Reason for Visit Asthma with allergic rhinitis with acute exacerbation GERD (gastroesophageal reflux disease) GERD (gastroesophageal reflux disease) Regurgitation of food Chief Complaint allergies abd issues FU EDG/ALEJANDRE RIGHT LOWER LEG PAIN GERD Reason for Visit Asthma with allergic rhinitis with acute exacerbation GERD (gastroesophageal reflux disease) GERD (gastroesophageal reflux disease) Regurgitation of food Chief Complaint allergies abd issues FU EDG/ALEJANDRE RIGHT LOWER LEG PAIN GERD GERD Reason for Visit Asthma with allergic rhinitis with acute exacerbation GERD (gastroesophageal reflux disease) GERD (gastroesophageal reflux disease) Regurgitation of food Chief Complaint FU EDG/ALEJANDRE RIGHT LOWER LEG PAIN GERD GERD PALPS (OK PER MMM, PFM PREV PT) CARTER Reason for Visit GERD (gastroesophage al reflux disease) Regurgitation of food Chest pain CARTER (dyspnea on exertion) Bicuspid aortic valve Mitral valve prolapse Chief Complaint RIGHT LOWER LEG PAIN GERD GERD PALPS (OK PER MMM, PFM PREV PT) CARTER CHEST PAIN Reason for Visit Chest pain CARTER (dyspnea on exertion) Bicuspid aortic valve Mitral valve prolapse Chief Complaint RIGHT LOWER LEG PAIN GERD GERD PALPS (OK PER MMM, PFM PREV PT) CARTER CHEST PAIN WELLNESS EORDERS Reason for Visit Chest pain CARTER (dyspnea on exertion) Bicuspid aortic valve Mitral valve prolapse Encounter for preventative adult health care examination Restless leg syndrome Chief Complaint PALPS (OK PER MMM, P FM PREV PT) CARTER CHEST PAIN WELLNESS EORDERS TB TEST DONE 1 STEP/SELF PAY/SCHOOL med check Reason for Visit Chest pain CARTER (dyspnea on exertion) Bicuspid aortic valve Mitral valve prolapse Encounter for preventative adult health care examination Restless leg syndrome Anxiety Family History No Family History Records Found Relationship Condition Age at Onset Recorded Date/T rob father Angina pectoris Unknown Disorder of thyroid Unknown grandfather Angina pectoris Unknown Cardiac disease Unknown grandfather Malignant neoplasm of skin Unknown Advance Directives No Advanced Directives Records Found Advance Directive Response Recorded Date/ Time Living Will No August 13, 2021 2:58pm Power of Drug Abuse Treatment Specialist No August 13 2 2:58pm Advance Directive Response Recorded Date/ Time Living Will No August 13, 2021 1:58pm Power of Drug Abuse Treatment Specialist No August 13 2 1:58pm Advance Directive Response Recorded Date/ Time Living Will No February 19 3 5:13pm Power of Drug Abuse Treatment Specialist No February 19 023 5:13pm Summary Purpose Additional Source Comments Care Teams (unrecognized sec tion and content) Team Status: Active Member Role Status Dates Dr. Manas Shaw MD Family Provider Active Talon Ray SUPERVISOR FINISHING, SUPERVISOR FINISHING-C Primary Care Provider Active Team Status: Inactive Member Role Status Dates Talon Ray SUPERVISOR FINISHING, SUPERVISOR FINISHING-C Primary Care Provide r, Attending Provider, Referring Provider Active Team Status: Inactive Member Role Status Dates Talon Ray NP, SUPERVISOR FINISHING-C Primary Care Provider, Referring P rovider Active Shayla Hernandez PA, PA Attending Provider Active Team Status: Active Member Role Status Dates Talon Ray NP, SUPERVISOR FINISHING-C Primary Care Provider Active Dr. Elpidio Oliveira MD Attending Provider Active Team Status: Inactive Member Role Status Dates Talon Ray NP, SUPERVISOR FINISHING-C Primary Care Provider, Referring P rovider Active Cong MORENO, PA Attending Provider Active Team Status: Inactive Member Role Status Dates Talon Ray NP, SUPERVISOR FINISHING-C Primary Care Provider, Referring P rovider Active Dr. Snow Arenas MD Attending Provider Active Team Status: Inactive Member Role Status Dates Talon Ray SUPERVISOR FINISHING, SUPERVISOR FINISHING-C Primary Care Provider Active JOSH Manriquez Attending Provider, Referr ing Provider Active Team Status: Inactive Member Role Status Dates Talon Ray NP, SUPERVISOR FINISHING-C Primary Care Provider Active JOSH Manriquez Attending Provider Active Team Status: Active Member Role Status Dates Talon Ray NP, SUPERVISOR FINISHING-C Primary Care Provide r, Attending Provider, Referring Provider Active INFORMATION SOURCE (unrecogn ized section and content) DATE CREATED AUTHOR 09/09/2024 [facility] FOR RECORDS PERTAINING TO PATIENTS WHO ARE OR HAVE BEEN ENROLLED IN A CHEMICAL DEPENDENCY/SUBSTANCEABUSE PROGRAM, SOME INFORMATION MAY BE OMITTED. This clinical summary was aggregated from multiple sources. Caution should be exercised in using it in the provision of clinical care. This summary normalizes information from multiple sources, and as a consequence, information in this document may materially change the coding, format and clinical context of patient data. In addition, data may be omitted in some cases. CLINICAL DECISIONS SHOULD BE BASED ON THE PRIMARY CLINICAL RECORDS. [employer] provides no warranty or guarantee of the accuracy or completeness of information in this document.
[2024-09-14 08:01] LABS: Hematocrit 40.5 % (37-47); Hemoglobin 14.0 g/dL (12.0-15.0); Immature Granulocytes Count 0.030 X10^3/uL (0.0-0.0); Mean Corp Hgb Conc 34.6 g/dL (32-36); Mean Corpuscular Volume 81.2 fL (81-99); Mean Platelet Vol. 9.7 fl (6.2-12.0); NRBC Flagged by Analyzer 0 % (0-5); Platelet Count 362 K/mm3 (150-450); RBC Distribution Width CV 13.2 % (11.6-14.6); RBC Distribution Width SD 38.8 fl (35.1-43.9); Red Blood Count 4.99 M/mm3 (4.2-5.4); White Blood Count 8.1 K/mm3 (4.4-11.0)
[2024-09-14 08:43] LABS: AST(SGOT) 20 U/L (<=31); Alanine Aminotransfer ALT/SGPT 11 U/L (<=34); Albumin, Serum 4.2 g/dL (3.5-5.0); Alkaline Phosphatase 94 U/L (35-104); Anion Gap 13 (5-15); BUN 9 mg/dL (4-19); BUN/Creat Ratio 11.9 RATIO (10-20); Calcium,Total 9.3 mg/dL (7.6-11.0); Carbon Dioxide 19.3 mmol/L (21.0-32.0); Chloride 104 mmol/L (98-108); Cholesterol 197 mg/dL (<=200); Globulin 2.8 g/dL (2.2-4.2); Glucose 83 mg/dL (70-99); Low Density Lipoprotein Calc. 112 mg/dL; Potassium 4.0 mmol/L (3.3-5.1); Triglycerides 122 mg/dL; Very Low Density Lipoprotein 24 mg/dL (5-40); cholesterol:hdl ratio screen 3.25
[2024-09-14 16:25] LABS: T4 Total, Thyroxin 5.8 ug/dL (4.8-13.9)
[2024-09-18 17:00] LABS: Ferritin 66 ng/mL (22-378); Iron 135 ug/dL (50-170); Iron Binding Capacity,Total 357 ug/dL (250-450); Iron Binding Capacity,Unsat 222 ug/dL (228-428)
== END | disposition home or self-care (01) ==
DX: E03.9 Hypothyroidism, unspecified (principal); Z13.220 Encounter for screening for lipoid disorders; Z13.6 Encounter for screening for cardiovascular disorders; Z13.1 Encounter for screening for diabetes mellitus; E61.1 Iron deficiency
CPT/HCPCS: 80053; 80061; 82728; 83036; 83540; 83550; 84436; 84439; 84443; 85025; 86376; 86800

== ENCOUNTER → 2025-02-04 | Outpatient (CLI) | payer OTHER, SELFPAY ==
--- OUTSIDE RECORDS SUMMARY | 2025-02-04 19:36 | XMS RPT_ITS | CCD ---
Author Organization [facility] Care Team Providers Care Manager Of Enterprise Name Role Phone Dagoberto JOSEPH, Snow Castorena Unavailable [phone] Marija BEHAVIORAL INSTRUCTOR, Ashley S Unavailable Emmanuel RN, Shayla Bowling Unavailable Anita GARCIA, Rachell Moore Unavailable Unavailable Ray BEHAVIORAL INSTRUCTOR, BEHAVIORAL INSTRUCTOR-C Talon Primary Care Provider Ray BEHAVIORAL INSTRUCTOR, BEHAVIORAL INSTRUCTOR-C Talon Referring Provider [phone] Fallon MORENO, [place] Serge Salguero Attending Provider Ray BEHAVIORAL INSTRUCTOR, BEHAVIORAL INSTRUCTOR-C Talon Attending Provider FriendDr. Polk Attending Provider [phone] FriendDr[address] Polk Other Provider Ray BEHAVIORAL INSTRUCTOR, BEHAVIORAL INSTRUCTOR-C Talon Primary Care Provider Ray BEHAVIORAL INSTRUCTOR, BEHAVIORAL INSTRUCTOR-C Talon Referring Provider Rosangela BEHAVIORAL INSTRUCTOR, BEHAVIORAL INSTRUCTOR-C Elisabeth Salguero Attending Provider Ray BEHAVIORAL INSTRUCTOR, BEHAVIORAL INSTRUCTOR-C Talon Primary Care Provider Ray BEHAVIORAL INSTRUCTOR, BEHAVIORAL INSTRUCTOR-C Talon Attending Provider Ray BEHAVIORAL INSTRUCTOR, BEHAVIORAL INSTRUCTOR-C Talon Referring Provider Dr. Jam Gonzales Attending Provider Dr. Andrea King Attending Provider Marija BEHAVIORAL INSTRUCTOR, BEHAVIORAL INSTRUCTOR-C Ashley Referring Provider [phone] Ray BEHAVIORAL INSTRUCTOR, BEHAVIORAL INSTRUCTOR-C Talon Primary Care Provider Ray BEHAVIORAL INSTRUCTOR, BEHAVIORAL INSTRUCTOR-C Talon Referring Provider [phone] Christian, Dr. Polk Other Provider [phone] Rosangela BEHAVIORAL INSTRUCTOR, BEHAVIORAL INSTRUCTOR-C Elisabeth Salguero Attending Provider [phone] Dr. Andrea King Attending Provider [place] BEHAVIORAL INSTRUCTOR, BEHAVIORAL INSTRUCTOR-C Ashley Referring Provider [phone] JOSH Sullivan Attending Provider Ray BEHAVIORAL INSTRUCTOR, BEHAVIORAL INSTRUCTOR-C Talon Primary Care Provider Ray BEHAVIORAL INSTRUCTOR, BEHAVIORAL INSTRUCTOR-C Talon Referring Provider [phone] Dr. Elpidio Oliveira Attending Provider [phone] Ray BEHAVIORAL INSTRUCTOR, BEHAVIORAL INSTRUCTOR-C Talon Attending Provider [phone] Ray BEHAVIORAL INSTRUCTOR, BEHAVIORAL INSTRUCTOR-C Talon Primary Care Provider JOSH Toledo Attending Provider Dr. Snow Arenas Attending Provider [phone] Beam VSC, Zebulun Primary Care Unavailable Beam VSC, Zebulun Attending Unavailable Mousie, Maria Teresa Primary Care Unavailable Shayla Sullivan Attending Unavail able Shayla Sullivan Referring Unavail able Ferullo, Lita Primary Care Unavailable [place] BEHAVIORAL INSTRUCTOR, Ashley Attending Unavailable Ferullo, Lita Primary Care Unavailable [place] BEHAVIORAL INSTRUCTOR, Ashley Referring Unavailable Marija BEHAVIORAL INSTRUCTOR, Ashley Attending Unavailable Mousie, Maria Teresa Attending Unavailable Mousie, Maria Teresa Primary Care Unavailable Rik, Maria Teresa Referring Unavailable Ferullo, Lita Referring Unavailable Rik, Maria Teresa Attending Unavailable Serge Ellis Attending Unavailable Mousie, Maria Teresa Primary Care Unavailable MjseSerge Attending Unavailable Ferullo, Lita Attending Unavailable Ferullo, Lita Primary Care Unavailable Ferullo, Lita Referring Unavailable Ferullo, Lita Primary Care Unavailable Ferullo, Lita Referring Unavailable Ferullo, Lita Attending Unavailable Mousie, Maria Teresa Primary Care Unavailable Serge Ellis Attending Unavailable Serge Ellis Referring Unavailable Mousie, Maria Teresa Primary Care Unavailable Shayla Sullivan Attending Unavail able Mousie, Maria Teresa Primary Care Unavailable Serge Ellis Attending Unavailable Mousie, Maria Teresa Referring Unavailable Ferullo, Lita Primary Care Unavailable Serge Ellis Attending Unavailable Ferullo, Lita Primary Care Unavailable Ferullo, Lita Referring Unavailable Ashley Dutton NP Attending Unavailable Ferullo, Lita Primary Care Unavailable Serge Ellis Attending Unavailable Rik, Maria Teresa Primary Care Unavailable Shayal Sullivan Attending Unavail able Shayla uSllivan Referring Unavail able Mousie, Maria Teresa Referring Unavailable Jam Gonzales Attending Unavailable Mousie, Maria Teresa Primary Care Unavailable Rik, Maria Teresa Referring Unavailable Mousie, Maria Teresa Attending Unavailable Mousie, Maria Teresa Primary Care Unavailable Mousie, Maria Teresa Referring Unavailable Mousie, Maria Teresa Attending Unavailable Rik, Maria Teresa Primary Care Unavailable Ferullo, Lita Primary Care Unavailable Ferullo, Lita Referring Unavailable Ferullo, Lita Attending Unavailable Mousie, Maria Teresa Referring Unavailable Marjorie Linda Attending Unavailable Rik, Maria Teresa Primary Care Unavailable Blair Zhang Attending Unavailable Mousie, Maria Teresa Primary Care Unavailable Shayla Sullivan Referring Unavail able Tara Vega Attending Unavailable Rik, Maria Teresa Primary Care Unavailable Shayla Sullivan Referring Unavail able Nneka Humphreys Attending Unavailable Rik, Maria Teresa Primary Care Unavailable Mousie, Maria Teresa Referring Unavailable Mousie, Maria Teresa Primary Care Unavailable Serge Ellis Attending Unavailable Beam VSC, Zebulun Primary Care Unavailable Serge Ellis Attending Unavailable Mousie, Maria Teresa Primary Care Unavailable Shayla Sullivan Attending Unavail able Mousie, Maria Teresa Referring Unavailable Allergies Allergy Classification Reported Allergen(s) Allergy Type Date of Onset Reaction(s) Facility (20 sources) lansoprazole drug allergy 03-25-2016 Rash [facility] Work Phone: Medications Current Medications Medication Drug Class(es) Dates Sig (Normalized) Sig (Original) amoxicillin 500 mg oral capsule (20 sources) Penicillin-class Antibacterial Start: 02-17-2022 take 2000 mg by mouth every hour Amoxicillin Active 2000 MG PO .COMPLEX 4 February 17, 2022 12:00am 2,000 mg orally [...] mouth 1 hr prior to procedure AMOXICILLIN [id number] Alley Steele LPN 24 hr desvenlafaxine succinate [...] 15, 2019 1:58pm 21 day ethinyl estradiol 0.207334 mg/hr / etonogestrel 0.005 mg/hr vaginal system [...] PO 1 to 2 times per day July 16, 2018 11:00pm March 19, 2019 [...] TABLET PO EVERY 6 HOURS NEEDED 12 3 May 15, 2020 May 17, 2020 11:03pm [id number] 200 actuat albuterol 0.09 mg/actuat metered dose [...] TBEC One tablet by mouth daily ASPIRIN [id number] Ashley Dutton BEHAVIORAL INSTRUCTOR azithromycin 500 mg oral tablet (20 sources) Macrolide Antimicrobial Start: 09-10-2021 End: 09-15-2021 take 500 mg by mouth once daily Azithromycin Discontinued 500 MG PO DAILY 5 September 09, 2021 11:00pm September 14, [...] 1 tab daily X 4 days AZITHROMYCIN [id number] Ashley Dutton BEHAVIORAL INSTRUCTOR Start: 03-25-2016 ZITHROMAX Z-PA K 250 MG TABS Per package instructions AZITHROMYCIN [id number] Serge MORENO Start: 03-25-2016 End: 06-02-2016 ZITHROMAX Z-LEONELA 250 MG TABS Per package instructions AZITHROMYCIN [id number] Guadalupe Aguirre RN Start: 03-25-2016 End: 06-02-2016 ZITHROMAX Z-LEONELA 250 MG TABS Per package instructions AZITHROMYCIN [id number] Serge MORENO benzonatate 100 mg oral capsule [...] 1 TABLET PO daily July 18, 2018 3:18pm June 22, 2019 [...] One tablet by mouth daily DESOGESTREL-ETHINYL ESTRADIOL [id number] Ashley Dutton BEHAVIORAL INSTRUCTOR Start: 05-10-2012 APRI 0.15-30 M G-MCG TABS as directed DESOGESTREL-ETHINYL ESTRADIOL [id number] Elpidio Oliveira MD Start: 05-10-2012 take 1 tablet by chitra th once daily APRI 0.15-30 MG-MCG TABS One tablet by mouth daily DESOGESTREL-ETHINYL ESTRADIOL [id number] Ashley Dutton BEHAVIORAL INSTRUCTOR Start: 05-10-2012 APRI 0.15-30 M G-MCG TABS as directed DESOGESTREL-ETHINYL ESTRADIOL [id number] Elpidio Oliveira MD Dexlansoprazole (Dexilant) 60 mg capsule,biphase delayed releas (19 sources) Start: 08-28-2021 End: 09-16-2021 take 1 capsule by mouth once daily Dexlansoprazole (Dexilant) 60 mg capsule,biphase delayed releas Discontinued 60 MG PO DAILY August 28, 2021 5:14pm September 16, 2021 6:37am Start: 08-28-2021 End: 09-16-2021 take 1 capsule by mouth once daily Dexlansoprazole (Dexilant) 60 mg capsule,biphase delayed releas Discontinued 60 MG PO DAILY August 28, 2021 6:14pm September 16, 2021 7:37am Start: 08-28-2021 take 1 capsule by mo [facility] once daily Dexlansoprazole (Dexilant) 60 mg capsule,biphase [...] Start: 07-31-2021 take 1 capsule by mo [facility] once daily Dexlansoprazole (Dexilant) 60 mg capsule,biphase delayed releas Active 60 MG PO DAILY July 31, 2021 12:00am 273 day ethinyl estradiol 0.601248 mg/hr / segesterone acetate 0.03122 mg/hr vaginal system (5 sources) Estrogen Start: [...] po today and repeat 3 days. FLUCONAZOLE [id number] Ashley Dutton NP FLUoxetine 40 mg oral capsule (20 sources) Serotonin Reuptake Inhibitor Start: 07-27-2021 End: 08-06-2021 take 40 mg by mouth once daily Fluoxetine Discontinued 40 MG PO DAILY July 26, 2021 11:00pm August 06, 2021 [...] APPLIC MUCOUS MEM THREE TIMES A DAY August 19, 2021 11:00pm December 15, 2021 2:27pm Start: 08-20-2021 Lidocaine Hcl (Lidocaine Viscous) 2 % solution Active 1 APPLIC MUCOUS MEM THREE TIMES A DAY August 20, 2021 12:00am methylPREDNISolone 4 mg [...] tablet Discontinued 10 MG PO EVERY EVENING June 12, 2018 11:00pm May 15, 2019 [...] MG PO THREE TIMES A DAY 6 August 07, 2019 11:00pm November 07, 2019 [...] Discontinued 1000 MG PO TWICE A DAY 10 July 07, 2020 11:00pm November 17, 2020 12:22pm [...] sources) Anxiety; Translations: [Anxiety disorder, unspecified] Onset: 10-17-2024 03-01-2022 Chronic Asthma (17 sources) Acute exacerbation [...] [Ventricular premature depolarization] Onset: 06-02-2016 06-02-2016 Chronic Deficiency and other anemia (2 sources) Iron [...] aftercare (10 sources) Drug indicated; Translations: [Other mcc (current) drug therapy] 04-20-2021 Episodic Other bone [...] lower respiratory disease (10 sources) Cough; 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] 03-31-2021 Episodic [...] with positive high risk HPV] 10-09-2020 Episodic Thyroid disorders (1 source) Hypothyroidism, unspecified; Translations: [Hypothyroidism, unspecified] Onset: 09-26-2024 Chronic Unclassified (4 sources) Gynecologic examination ; Translations: [Encounter for gynecological examination (general) (routine) without abnormal findings] Onset: 09-29-2016 09-29-2016 Unclassified (7 sources) Contraception care management; Translations: [Encounter for contraceptive management, unspecified] Onset: 09-29-2016 09-29-2016 Past or Other Problems Problem Classification Problem Date Documented Date Episodic/Chronic Abdominal pain (2 sources) Epigastric pain; Translations: [Unspecified abdominal pain] Onset: 04-27-2024 Episodic Cardiac dysrhythmias (11 sources) Palpitations; Translations: [Palpitations] Onset: 05-04-2012 05-04-2012 Episodic Chronic obstructive pulmonary disease and bronchiectasis [...] Test Name Value Interpretation Reference Range Facility /Alan 10-17-20[facility] [address] [place] [address] [place] [address] OFFICE VISIT Date of Service: 10/17/24 MR#: [id number] Acct: [id number] Name: DOMINGA GONZÁLES Rep #: [id number] : 1990 Provider: Dr. Serge Barker se, DO Age/Sex: 33/F Location: [facility] [place] Status: Signed Intake Vital Signs 09/04/24 16:05 10/17/24 08:22 Height 5 ft 4 in 5 ft 4 in Weight: 177 lb 164 lb BMI 30.4 28.1 BP 119/80 135/82 H Blood Pressure Location Lt brachial Lt brachial Position Sitting Sitting Respiration 16 16 Pulse 67 87 Pulse Source Monitor Monitor Pulse Oximetry (%) 95 Oxygen Delivery Method room air BP Intake Visit Reasons: follow up Accompanied by: Self Allergies No Known Allergies Allergy (Verified 10/17/24 08:26) Medications ???Medication ???Instructions ???Recorded ???Confirmed ???Type melatonin 10 mg tablet 10 mg PO HS PRN 08/11/22 10/17/24 History albuterol sulfate 90 mcg/actuation 2 puff inhalation Q4H PRN 10/17/24 Rx aerosol inhaler (Ventolin HFA) shortness of breath or wheezing #18 grams valacyclovir 1 gram tablet 2,000 mg PO BID PRN 11/30/2310/17 History (Valtrex) ferrous fumarate 325 mg (106 mg 325 mg PO QDAY 04/17/24 10/17/24 H istory iron) tablet rabeprazole 20 mg tablet,delayed 20 mg PO QDAY #90 tabs 05/16/24 Rx release gabapentin 300 mg capsule 300 mg PO QHS #90 caps 06/18/24 Rx vilazodone 40 mg tablet 40 mg PO DAILY 90 days #90 tabs 10/17/24 Rx ropinirole 0.25 mg tablet 0.25 mg PO QHS PRN restless leg(s) 07/12/24 10/17/24 Rx #90 tabs hydroxyzine HCl 50 mg tablet 50 mg PO QHS PRN sleep #90 tabs 10/17/24 Rx doxepin 10 mg capsule 10 mg PO QDAY #30 caps 10/17/24 Rx semaglutide (weight loss) 0.5 0.5 mg subcut QWEEK 10/17/2410/17 History mg/0.5 mL subcutaneous pen injector viloxazine 200 mg capsule,extended 200 mg PO QDAY #60 caps 10/17/24 10/17/24 Rx release 24 hr lorazepam 1 mg tablet 0.5 - 1 mg (0.5 - 1 x 1 mg) PO 06/08 Rx DAILY PRN anxiety #30 tabs ondansetron 8 mg disintegrating 8 mg PO Q4H PRN nausea and 5 Rx tablet vomiting #30 tabs PFSH Medical History Thyroid disorder ADHD Depression, [...] spouse current occupational status: employed current occupation: [employer], [employer] Smoking Status: Never smoker alcohol intake: current [...] who presents today for follow up evaluation. Has been having motor tics with vyvanse so has discontinued several months ago. Has been taking adderall intermittently that she had from an old script. Was recently diagnosed with [place]'s thyroiditis. Had a thyroid ultrasound and was normal per report. Anxety has been increased in the morning, but has no interest in adjusting her vilazodone. Has been struggling to focus in school. Can generally only study for about 10 minutes at a time. Taking 1 class but it is 10 clinical hours. Work has been fine. Sleep has been poor. Has been having difficulty with staying asleep, and generally can fall asleep. Did recently start a semaglutide injection and has lost 15 lbs. Has been taking clonidine, however benefit has been marignal. Patient has never had a sleep study. Review of Systems Constitutional Denies: fever(s), chills or change in weight Eyes Denies: change in vision or blurry vision Ears, Nose, Mouth, Throat Denies: throat pain, neck pain or change in hearing Cardiovascular Denies: chest pain, palpitations or dyspnea Respiratory (more content not included)... Normal [facility] Thyroid Antibodieson 025 TG AB 74.9 IU/mL High 0.0-0.9 [facility] Comment on above: Order Comment: BLOOD IN LAB Result Comment: Thyr oglobulin Antibody measured by [employer] It should be noted that the presence of thyroglobulin antibodies may not be pathogenic nor diagnostic, especially at very low levels. The assay alumni relations officer has found that four percent of individuals without evidence of thyroid disease or autoimmunity will have positive TgAb levels up to 4 IU/mL. Performed at: [address] [id number] Company Laborer: Pedro Garduno PhD, Phone: [phone] Performed By: #### L 577.1750, L100.0100, L506.0400, L501.9310, L503.6030, L501.9985, L500.4050, L3300.6750, L500.4100, L501.9520 ####[facility] [address] [place], [place], [id number] THYR PEROX AB 37 IU/mL High 0-34 [facility] Comment on above: Order Comment: BLOOD IN LAB Performed By: #### L 402.7350, L100.0100, L506.0400, L501.9310, L503.6030, L501.9985, L500.4050, L3300.6750, L500.4100, L501.9520 ####[facility] [address] [place], [place], [id number] Ferritinon 09-18-2024 Ferritin [Mass/Vol] 66 ng/mL Normal 22-378 [facility] Comment on above: Order Comment: ADD O N IBC AND FERRITIN TO FG2 1 G Performed By: #### L 503.6550, L100.0100, L506.0400, L501.9310, L503.6030, L501.9985, L500.4050, L3300.6750, L500.4100, L501.9520 ####[facility] [address] [place], [address] Iron+Iron Binding Capacityon 09-18-2024 Iron [Mass/Vol] 135 ug/dL Normal 50-170 [facility] Comment on above: Order Comment: ADD O N IBC AND FERRITIN TO FG2 1 G Performed By: #### L 503.6550, L100.0100, L506.0400, L501.9310, L503.6030, L501.9985, L500.4050, L3300.6750, L500.4100, L501.9520 ####[facility] [address] [place], [place], [id number] IRON SATURATION 38.0 Normal 13-59 [facility] Comment on above: Order Comment: ADD O N IBC AND FERRITIN TO FG2 1 G Performed By: #### L 503.6550, L100.0100, L506.0400, L501.9310, L503.6030, L501.9985, L500.4050, L3300.6750, L500.4100, L501.9520 ####[facility] [address] [place], [address] TIBC 357 ug/dL Normal 250-450 [facility] Comment on above: Order Comment: ADD O N IBC AND FERRITIN TO FG2 1 G Performed By: #### L 503.6550, L100.0100, L506.0400, L501.9310, L503.6030, L501.9985, L500.4050, L3300.6750, L500.4100, L501.9520 ####[facility] [address] [place], [address] UIBC 222 ug/dL Low 228-428 [facility] Comment on above: Order Comment: ADD O N IBC AND FERRITIN TO FG2 1 G Performed By: #### L 503.6550, L100.0100, L506.0400, L501.9310, L503.6030, L501.9985, L500.4050, L3300.6750, L500.4100, L501.9520 ####[facility] [address] [place], [address] CBC W/Diff, Automatedon 08-0 -2024 Absolute Lymph 1.57 X10 3/uL Normal 0.83-4.51 [facility] Comment on above: Performed By: #### L 503.6550, L100.0100, L506.0400, L501.9310, L503.6030, L501.9985, L500.4050, L3300.6750, L500.4100, L501.9520 ####[facility] [address] [place], [address] Absolute Neut 5.3 X10 3/uL Normal 2.0-7.7 [facility] Comment on above: Performed By: #### L 503.6550, L100.0100, L506.0400, L501.9310, L503.6030, L501.9985, L500.4050, L3300.6750, L500.4100, L501.9520 ####[facility] [address] [place], [address] Basophils/100 WBC (Bld) 0.6 % Normal 0-1 [facility] Comment on above: Performed By: #### L 503.6550, L100.0100, L506.0400, L501.9310, L503.6030, L501.9985, L500.4050, L3300.6750, L500.4100, L501.9520 ####[facility] [address] [place], [address] Eosinophils/100 WBC (Bld) 4.8 % Normal 0-5 [facility] Comment on above: Performed By: #### L 503.6550, L100.0100, L506.0400, L501.9310, L503.6030, L501.9985, L500.4050, L3300.6750, L500.4100, L501.9520 ####[facility] [address] [place], [address] Erythrocyte distribution width (RBC) [Ratio] 13.2 % Normal 11.6-14.6 [facility] Comment on above: Performed By: #### L 503.6550, L100.0100, L506.0400, L501.9310, L503.6030, L501.9985, L500.4050, L3300.6750, L500.4100, L501.9520 ####[facility] [address] [place], [address] Hematocrit (Bld) [Volume fraction] 40.5 % Normal 37-47 [facility] Comment on above: Performed By: #### L 503.6550, L100.0100, L506.0400, L501.9310, L503.6030, L501.9985, L500.4050, L3300.6750, L500.4100, L501.9520 ####[facility] [address] [place], [address] Hemoglobin (Bld) [Mass/Vol] 14.0 g/dL Normal 12.0-15.0 [facility] Comment on above: Performed By: #### L 503.6550, L100.0100, L506.0400, L501.9310, L503.6030, L501.9985, L500.4050, L3300.6750, L500.4100, L501.9520 ####[facility] [address] [place], [address] IG% 0.400 Normal 0.0-0.9 [facility] Comment on above: Result Comment: IG% - Immature Granulocytes (promyelocytes, myelocytes and metamyelocytes) > 1% indicates that a LEFT SHIFT is Present. Performed By: #### L 503.6550, L100.0100, L506.0400, L501.9310, L503.6030, L501.9985, L500.4050, L3300.6750, L500.4100, L501.9520 ####[facility] [address] [place], [address] Lymphocytes/100 WBC (Bld) 19.4 % Normal 19-41 [facility] Comment on above: Performed By: #### L 503.6550, L100.0100, L506.0400, L501.9310, L503.6030, L501.9985, L500.4050, L3300.6750, L500.4100, L501.9520 ####[facility] [address] [place], [place], [id number] MCH (RBC) [Entitic mass] 28.1 pg Normal 27.0-32.0 [facility] Comment on above: Performed By: #### L 503.6550, L100.0100, L506.0400, L501.9310, L503.6030, L501.9985, L500.4050, L3300.6750, L500.4100, L501.9520 ####[facility] [address] [place], [address] MCHC (RBC) [Mass/Vol] 34.6 g/dL Normal 32-[address] [facility] Comment on above: Performed By: #### L 503.6550, L100.0100, L506.0400, L501.9310, L503.6030, L501.9985, L500.4050, L3300.6750, L500.4100, L501.9520 ####[facility] [address] [place], [address] MCV (RBC) [Entitic vol] 81.2 fL Normal 81-99 [facility] Comment on above: Performed By: #### L 503.6550, L100.0100, L506.0400, L501.9310, L503.6030, L501.9985, L500.4050, L3300.6750, L500.4100, L501.9520 ####[facility] [address] [place], [address] Monocytes/100 WBC (Bld) 9.6 % Normal 0-10 [facility] Comment on above: Performed By: #### L 503.6550, L100.0100, L506.0400, L501.9310, L503.6030, L501.9985, L500.4050, L3300.6750, L500.4100, L501.9520 ####[facility] [address] [place], [address] Neutrophils/100 WBC (Bld) 65.2 % Normal 47-70 [facility] Comment on above: Performed By: #### L 503.6550, L100.0100, L506.0400, L501.9310, L503.6030, L501.9985, L500.4050, L3300.6750, L500.4100, L501.9520 ####[facility] [address] [place], [address] Nucleated RBC (Bld) [#/Vol] 0 10*3/uL Normal 0-5 [facility] Comment on above: Performed By: #### L 503.6550, L100.0100, L506.0400, L501.9310, L503.6030, L501.9985, L500.4050, L3300.6750, L500.4100, L501.9520 ####[facility] [address] [place], [place], [phone]17) Platelet mean volume (Bld) [Entitic vol] 9.7 fL Normal 6.2-12.0 [facility] Comment on above: Performed By: #### L 503.6550, L100.0100, L506.0400, L501.9310, L503.6030, L501.9985, L500.4050, L3300.6750, L500.4100, L501.9520 ####[facility] [address] [place], [place], [phone]) Platelets (Bld) [#/Vol] 362 10*3/uL Normal 150-450 [facility] Comment on above: Performed By: #### L 503.6550, L100.0100, L506.0400, L501.9310, L503.6030, L501.9985, L500.4050, L3300.6750, L500.4100, L501.9520 ####[facility] [address] [place], [place], [phone]) RBC (Bld) [#/Vol] 4.99 10*6/uL Normal 4.2-5.4 [facility] Comment on above: Performed By: #### L 503.6550, L100.0100, L506.0400, L501.9310, L503.6030, L501.9985, L500.4050, L3300.6750, L500.4100, L501.9520 ####[facility] [address] [place], [place], [phone]) RDW SD 38.8 fl Normal 35.1-43.9 [facility] Comment on above: Performed By: #### L 503.6550, L100.0100, L506.0400, L501.9310, L503.6030, L501.9985, L500.4050, L3300.6750, L500.4100, L501.9520 ####[facility] [address] [place], [place], [id number] WBC (Bld) [#/Vol] 8.1 10*3/uL Normal 4.4-11.0 [facility] Comment on above: Performed By: #### L 503.6550, L100.0100, L506.0400, L501.9310, L503.6030, L501.9985, L500.4050, L3300.6750, L500.4100, L501.9520 ####[facility] [address] [place], [address] Comprehensive Metabolic [facility] 09-14-2024 Albumin [Mass/Vol] 4.2 g/dL Normal 3.5-5.0 [facility] Comment on above: Performed By: #### L 503.6550, L100.0100, L506.0400, L501.9310, L503.6030, L501.9985, L500.4050, L3300.6750, L500.4100, L501.9520 ####[facility] [address] [place], [place], [id number] Albumin/Globulin [Mass ratio] 1.5 {ratio} Normal 0.9-2.4 [facility] Comment on above: Performed By: #### L 503.6550, L100.0100, L506.0400, L501.9310, L503.6030, L501.9985, L500.4050, L3300.6750, L500.4100, L501.9520 ####[facility] [address] [place], [address] ALK PHOS 94 U/L Normal 35-104 [facility] Comment on above: Performed By: #### L 503.6550, L100.0100, L506.0400, L501.9310, L503.6030, L501.9985, L500.4050, L3300.6750, L500.4100, L501.9520 ####[facility] [address] [place], [place], [phone] ALT [Catalytic activity/Vol] 11 U/L Normal <=34 [facility] Comment on above: Performed By: #### L 503.6550, L100.0100, L506.0400, L501.9310, L503.6030, L501.9985, L500.4050, L3300.6750, L500.4100, L501.9520 ####[facility] [address] [place], [address] AST [Catalytic activity/Vol] 20 U/L Normal <=31 [facility] Comment on above: Performed By: #### L 503.6550, L100.0100, L506.0400, L501.9310, L503.6030, L501.9985, L500.4050, L3300.6750, L500.4100, L501.9520 ####[facility] [address] [place], [place], [phone] Bilirubin [Mass/Vol] 0.57 mg/dL Normal 0.00-1.30 [facility] Comment on above: Performed By: #### L 503.6550, L100.0100, L506.0400, L501.9310, L503.6030, L501.9985, L500.4050, L3300.6750, L500.4100, L501.9520 ####[facility] [address] [place], [place], [phone] BUN/CRE 11.9 RATIO Normal 10-20 [facility] Comment on above: Performed By: #### L 503.6550, L100.0100, L506.0400, L501.9310, L503.6030, L501.9985, L500.4050, L3300.6750, L500.4100, L501.9520 ####[facility] [address] [place], [address] Calcium [Mass/Vol] 9.3 mg/dL Normal 7.6-11.0 [facility] Comment on above: Performed By: #### L 503.6550, L100.0100, L506.0400, L501.9310, L503.6030, L501.9985, L500.4050, L3300.6750, L500.4100, L501.9520 ####[facility] [address] [place], [address] Chloride [Moles/Vol] 104 mmol/L Normal 98-108 [facility] Comment on above: Performed By: #### L 503.6550, L100.0100, L506.0400, L501.9310, L503.6030, L501.9985, L500.4050, L3300.6750, L500.4100, L501.9520 ####[facility] [address] [place], [address] CO2 [Moles/Vol] 19.3 mmol/L Low 21.0-32.0 [facility] Comment on above: Performed By: #### L 503.6550, L100.0100, L506.0400, L501.9310, L503.6030, L501.9985, L500.4050, L3300.6750, L500.4100, L501.9520 ####[facility] [address] [place], [address] Creatinine [Mass/Vol] 0.79 mg/dL Normal 0.70-1.[address] [facility] Comment on above: Performed By: #### L 503.6550, L100.0100, L506.0400, L501.9310, L503.6030, L501.9985, L500.4050, L3300.6750, L500.4100, L501.9520 ####[facility] [address] [place], [place], [phone]([phone] GAP 13 Normal 5-15 [facility] Comment on above: Performed By: #### L 503.6550, L100.0100, L506.0400, L501.9310, L503.6030, L501.9985, L500.4050, L3300.6750, L500.4100, L501.9520 ####[facility] [address] [place], [place], [phone] GFR/1.73 sq M.predicted among non-blacks MDRD (S/P/Bld) [Vol rate/Area] 103 mL/min/{1.73_m2} Normal >60 [facility] Comment on above: Result Comment: mL/m in/1.73m2 CKD-EPI Creatinine Equation (2020) Performed By: #### L 503.6550, L100.0100, L506.0400, L501.9310, L503.6030, L501.9985, L500.4050, L3300.6750, L500.4100, L501.9520 ####[facility] [address] [place], [place], [phone] Globulin (S) [Mass/Vol] 2.8 g/dL Normal 2.2-4.2 [facility] Comment on above: Performed By: #### L 503.6550, L100.0100, L506.0400, L501.9310, L503.6030, L501.9985, L500.4050, L3300.6750, L500.4100, L501.9520 ####[facility] [address] [place], [place], [phone] Glucose [Mass/Vol] 83 mg/dL Normal 70-99 [facility] Comment on above: Performed By: #### L 503.6550, L100.0100, L506.0400, L501.9310, L503.6030, L501.9985, L500.4050, L3300.6750, L500.4100, L501.9520 ####[facility] [address] [place], [address] Potassium [Moles/Vol] 4.0 mmol/L Normal 3.3-5.[address] [facility] Comment on above: Performed By: #### L 503.6550, L100.0100, L506.0400, L501.9310, L503.6030, L501.9985, L500.4050, L3300.6750, L500.4100, L501.9520 ####[facility] [address] [place], [place], [phone] Sodium [Moles/Vol] 136 mmol/L Normal 133-145 [facility] Comment on above: Performed By: #### L 503.6550, L100.0100, L506.0400, L501.9310, L503.6030, L501.9985, L500.4050, L3300.6750, L500.4100, L501.9520 ####[facility] [address] [place], [address] T PROT 7.0 g/dL Normal 5.9-8.4 [facility] Comment on above: Performed By: #### L 503.6550, L100.0100, L506.0400, L501.9310, L503.6030, L501.9985, L500.4050, L3300.6750, L500.4100, L501.9520 ####[facility] [address] [place], [place], [phone] Urea nitrogen [Mass/Vol] 9 mg/dL Normal 4-19 [facility] Comment on above: Performed By: #### L 503.6550, L100.0100, L506.0400, L501.9310, L503.6030, L501.9985, L500.4050, L3300.6750, L500.4100, L501.9520 ####[facility] [address] [place], [place], [phone] Hemoglobin A1con 09-14-2024 HbA1c (Bld) [Mass fraction] 4.9 % Normal <=5.6 [facility] Comment on above: Result Comment: Norm al < 5.7 % Prediabetic 5.7 - 6.4 % Diabetic >or= 6.5 % Please note range changes. Performed By: #### L 503.6550, L100.0100, L506.0400, L501.9310, L503.6030, L501.9985, L500.4050, L3300.6750, L500.4100, L501.9520 ####[facility] [address] [place], [place], [phone] Lipid Profileon 09-14-2024 CHOL:HDL 3.25 Normal [facility] Comment on above: Performed By: #### L 503.6550, L100.0100, L506.0400, L501.9310, L503.6030, L501.9985, L500.4050, L3300.6750, L500.4100, L501.9520 ####[facility] [address] [place], [place], [phone] Cholesterol [Mass/Vol] 197 mg/dL Normal <=200 [facility] Comment on above: Result Comment: Chol esterol level, Desirable <200 mg/dL Borderline high cholesterol 200-239 mg/dL High cholesterol >=240 mg/dL Recommendations of the NCEP Adult Treatment Panel for the following risk-cutoff thresholds for the [place] population. Performed By: #### L 503.6550, L100.0100, L506.0400, L501.9310, L503.6030, L501.9985, L500.4050, L3300.6750, L500.4100, L501.9520 ####[facility] [address] [place], [address] Cholesterol in HDL [Mass/Vol] 61 mg/dL Normal [facility] Comment on above: Result Comment: Lore onal Cholesterol Education Program (NCEP) guidelines: <40 mg/dL: Low HDL-cholesterol (major risk factor for CHD) >= 60 mg/dL: High HDL-cholesterol (negative risk factor for CHD) HDL-cholesterol is affected by a number of factors, e.g. smoking, exercise, hormones, sex and age. Performed By: #### L 503.6550, L100.0100, L506.0400, L501.9310, L503.6030, L501.9985, L500.4050, L3300.6750, L500.4100, L501.9520 ####[facility] [address] [place], [address] Cholesterol in LDL [Mass/Vol] 112 mg/dL Normal [facility] Comment on above: Result Comment: Bord zeyebf=002-436 mg/dL Higher Pthw=281 mg/dL or greater Friedwald Equation for LDL-C Performed By: #### L 503.6550, L100.0100, L506.0400, L501.9310, L503.6030, L501.9985, L500.4050, L3300.6750, L500.4100, L501.9520 ####[facility] [address] [place], [address] Cholesterol in VLDL [Mass/Vol] 24 mg/dL Normal 5-40 [facility] Comment on above: Performed By: #### L 503.6550, L100.0100, L506.0400, L501.9310, L503.6030, L501.9985, L500.4050, L3300.6750, L500.4100, L501.9520 ####[facility] [address] [place], [place], [phone] Triglyceride [Mass/Vol] 122 mg/dL Normal [facility] Comment on above: Result Comment: The drugs N-Acetylcysteine and Metamizole may falsely depress this assay. Normal range: <150 mg/dL Borderline High: 150-199 mg/dL High: 200-499 mg/dL Very High: >500 mg/dL Performed By: #### L 503.6550, L100.0100, L506.0400, L501.9310, L503.6030, L501.9985, L500.4050, L3300.6750, L500.4100, L501.9520 ####[facility] [address] [place], [place], [phone] T4 Free Directon 09-14-2024 T4 FREE DIRECT 1.00 ng/dL Normal 0.76-1.46 [facility] Comment on above: Performed By: #### L 503.6550, L100.0100, L506.0400, L501.9310, L503.6030, L501.9985, L500.4050, L3300.6750, L500.4100, L501.9520 ####[facility] [address] [place], [place], [phone] T4 Total, Thyroxinon 025 T4 [Mass/Vol] 5.8 ug/dL Normal 4.8-13.9 [facility] Comment on above: Performed By: #### L 503.6550, L100.0100, L506.0400, L501.9310, L503.6030, L501.9985, L500.4050, L3300.6750, L500.4100, L501.9520 ####[facility] [address] [place], [place], [phone] Thyroid Stim Hormone (TSH)on 09-14-2024 TSH 2.450 uIU/mL Normal 0.300-4.200 [facility] Comment on above: Performed By: #### L 503.6550, L100.0100, L506.0400, L501.9310, L503.6030, L501.9985, L500.4050, L3300.6750, L500.4100, L501.9520 ####[facility] [address] [place], [address] Cardiology Visit Reporton Cardiology Visit Report [facility] [address] [place] [address] OFFICE VISIT Date of Service: 09/04/24 MR#: [id number] Acct: [id number] Name: DOMINGA GONZÁLES Rep #: [id number] : 1990 Provider: JOSH Roberts Age/Sex: 33/F Location[place] [facility] 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 Normal [facility] MR/BMS.BPon 07-12-2024 MR/BMS.[address], [address] [place] [address] OFFICE VISIT Date of Service: 07/12/24 MR#: [id number] Acct: [id number] Name: DOMINGA GONZÁLES Rep #: [id number] : 1990 Provider: Dr. Serge Barker se, DO Age/Sex: 33/F Location: [facility] [place] Status: Signed Intake Vital Signs 05/10/24 07:30 07/12/24 11:08 Height 5 ft 4 in 5 ft 4 in BP Intake Visit Reasons: 2 M FU Allergies No Known Allergies Allergy (Verified 05/10/24 07:31) [facility] Medical History Thyroid disorder ADHD Depression, unspecified [...] spouse current occupational status: employed current occupation: [employer], [employer] Smoking Status: Never smoker alcohol intake: current [...] informed abo (more content not included)... Normal [facility] Basic Metabolic Profile (BMP )on 06-05-2024 BUN/CRE 9.3 RATIO Low 10-20 [facility] Comment on above: Performed By: #### L 500.1851, L508.5543, L501.8226 #### [facility] [address] [place], [address] Calcium [Mass/Vol] 9.4 mg/dL Normal 7.6-11.0 [facility] Comment on above: Performed By: #### L 500.2500, L501.9520, L501.5200 #### [facility] [address] [place], [address] Chloride [Moles/Vol] 107 mmol/L Normal 98-108 [facility] Comment on above: Performed By: #### L 500.2500, L501.9520, L501.5200 #### [facility] [address] [place], [address] CO2 [Moles/Vol] 20.0 mmol/L Low 21.0-32.0 [facility] Comment on above: Performed By: #### L 500.2500, L501.9520, L501.5200 #### [facility] [address] [place], [address] Creatinine [Mass/Vol] 0.77 mg/dL Normal 0.70-1.[address] [facility] Comment on above: Performed By: #### L 500.2500, L501.9520, L501.5200 #### [facility] [address] [place], [address] GAP 11 Normal 5-15 [facility] Comment on above: Performed By: #### L 500.2500, L501.9520, L501.5200 #### [facility] [address] [place], [address] GFR/1.73 sq M.predicted among non-blacks MDRD (S/P/Bld) [Vol rate/Area] 106 mL/min/{1.73_m2} Normal >60 [facility] Comment on above: Result Comment: mL/m in/1.73m2 CKD-EPI Creatinine Equation (2020) Performed By: #### L 500.2500, L501.9520, L501.5200 #### [facility] [address] [place], [address] Glucose [Mass/Vol] 95 mg/dL Normal 70-99 [facility] Comment on above: Performed By: #### L 500.2500, L501.9520, L501.5200 #### [facility] [address] [place], [address] Potassium [Moles/Vol] 4.2 mmol/L Normal 3.3-5.[address] [facility] Comment on above: Performed By: #### L 500.2500, L501.9520, L501.5200 #### [facility] [address] [place], [address] Sodium [Moles/Vol] 138 mmol/L Normal 133-145 [facility] Comment on above: Performed By: #### L 500.2500, L501.9520, L501.5200 #### [facility] [address] [place], [address] Urea nitrogen [Mass/Vol] 7 mg/dL Normal 4-19 [facility] Comment on above: Performed By: #### L 500.2500, L501.9520, L501.5200 #### [facility] [address] [place], [address] Magnesiumon 06-05-2024 Magnesium [Mass/Vol] 2.0 mg/dL Normal 1.5-2.2 [facility] Comment on above: Performed By: #### L 500.2500, L501.9520, L501.5200 #### [facility] [address] [place], [address] Thyroid Stim Hormone (TSH)on 06-05-2024 TSH 1.800 uIU/mL Normal 0.300-4.200 [facility] Comment on above: Performed By: #### L 500.2500, L501.9520, L501.5200 #### [facility] [address] [place], [address] MR/BMS.BPon 05-10-2024 MR/BMS.BP [facility] [address] [place] [address], [address] [place] [address] OFFICE VISIT Date of Service: 05/10/24 MR#: [id number] Acct: [id number] Name: DOMINGA GONZÁLES Rep #: [id number] : 1990 Provider: Dr. Serge Barker se, DO Age/Sex: 33/F Location: [facility] [place] Status: Signed Intake Vital Signs 04/26/24 14:12 05/10/24 07:30 Height 5 ft 4 in 5 ft 4 in Weight: 162 lb BMI 27.8 BP 123/80 H 121/78 H Blood Pressure Location Lt brachial Position Sitting Respiration 18 Pulse 79 79 Pulse Source Monitor Pulse Oximetry (%) 98 Oxygen Delivery Method room air BP Intake Visit Reasons: follow up/med chance Passport Support Associate Required: No Accompanied by: Self Is patient [...] spouse current occupational status: employed current occupation: [employer], [employer] Smoking Status: Never smoker alcohol intake: current [...] new lesions (more content not included)... Normal [facility] Gastroenterology Visit Repor ton 04-26-2024 Gastroenterology Visit Report [facility] [address] [place] [address] OFFICE VISIT Date of Service: 04/26/24 MR#: [id number] Acct: [id number] Name: DOMINGA GONZÁLES Rep #: [id number] : 1990 Provider: LIZZY ye Age/Sex: 33/F Location: [facility] [place] Status: Signed Intake Vital Signs 04/17/24 11:28 [...] Visit Reasons: Abdominal complaints Chief Complaint: pain Passport Support Associate Required: No Is patient in pain?: No [...] mg PO QAM 30 days #30 caps 0305/0804/26/24 Rx cholecalciferol (vitamin D3) 125 125 mcg [...] spouse current occupational status: employed current occupation: [employer], [employer] Smoking Status: Never smoker alcohol intake: current [...] association probability. (more content not included)... Normal [facility] Abdomen/Pelvis WITH Contrast on 04-22-2024 Abdomen/Pelvis WITH Contrast [facility] [address] [place], [place] [address] Abdomen/Pelvis WITH Contrast MR#: [id number] Acct: [id number] Name: DOMINGA GONZÁLES Rep #: [id number] : 1990 F 33 From: Andrea Fonseca PCP: Dr. Maria Teresa Jolly MD Status: REG CLI Study: Abdomen/Pelvis WITH Contrast Date of Exam: 11/08 Exam# [id number] Ordering Dr: Maria Teresa Jolly MD PROCEDURE: [...] PRUDENCIO CC: Dr. 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 PYLORI STOOL AGon 025 H PYLORI STL AG Negative Normal Negative [facility] Comment on above: Result Comment: Perf ormed at: - [facility] [address] [id number] Company Laborer: Pedro Garduno PhD, Phone: [phone] Performed By: #### L 3100.1950 ####[facility] [address] [place], [address] CBC W/Diff, Automatedon 03-0 4-2024 Absolute Lymph 0.96 X10 3/uL Normal 0.83-4.51 [facility] Comment on above: Performed By: #### L 100.0100, L500.4050 ####[facility] [address] [place], [address] Absolute Neut 6.7 X10 3/uL Normal 2.0-7.7 [facility] Comment on above: Performed By: #### L 100.0100, L500.4050 ####[facility] [address] [place], [address] Basophils/100 WBC (Bld) 0.7 % Normal 0-1 [facility] Comment on above: Performed By: #### L 100.0100, L500.4050 ####[facility] [address] [place], [address] Eosinophils/100 WBC (Bld) 1.9 % Normal 0-5 [facility] Comment on above: Performed By: #### L 100.0100, L500.4050 ####[facility] [address] [place], [address] Erythrocyte distribution width (RBC) [Ratio] 11.9 % Normal 11.6-14.6 [facility] Comment on above: Performed By: #### L 100.0100, L500.4050 ####[facility] [address] [place], [address] Hematocrit (Bld) [Volume fraction] 38.2 % Normal 37-47 [facility] Comment on above: Performed By: #### L 100.0100, L500.4050 ####[facility] [address] [place], [address] Hemoglobin (Bld) [Mass/Vol] 12.8 g/dL Normal 12.0-15.0 [facility] Comment on above: Performed By: #### L 100.0100, L500.4050 ####[facility] [address] [place], [address] IG% 0.400 Normal 0.0-0.9 [facility] Comment on above: Result Comment: IG% - Immature Granulocytes (promyelocytes, myelocytes and metamyelocytes) > 1% indicates that a LEFT SHIFT is Present. Performed By: #### L 100.0100, L500.4050 ####[facility] [address] [place], [address] Lymphocytes/100 WBC (Bld) 11.2 % Low 19-41 [facility] Comment on above: Performed By: #### L 100.0100, L500.4050 ####[facility] [address] [place], [address] MCH (RBC) [Entitic mass] 29.4 pg Normal 27.0-32.0 [facility] Comment on above: Performed By: #### L 100.0100, L500.4050 ####[facility] [address] [place], [address] MCHC (RBC) [Mass/Vol] 33.5 g/dL Normal 32-[address] [facility] Comment on above: Performed By: #### L 100.0100, L500.4050 ####[facility] [address] [place], [address] MCV (RBC) [Entitic vol] 87.6 fL Normal 81-99 [facility] Comment on above: Performed By: #### L 100.0100, L500.4050 ####[facility] [address] [place], [address] Monocytes/100 WBC (Bld) 7.6 % Normal 0-10 [facility] Comment on above: Performed By: #### L 100.0100, L500.4050 ####[facility] [address] [place], [address] Neutrophils/100 WBC (Bld) 78.2 % High 47-70 [facility] Comment on above: Performed By: #### L 100.0100, L500.4050 ####[facility] [address] [place], [address] Nucleated RBC (Bld) [#/Vol] 0 10*3/uL Normal 0-5 [facility] Comment on above: Performed By: #### L 100.0100, L500.4050 ####[facility] [address] [place], [address] Platelet mean volume (Bld) [Entitic vol] 9.5 fL Normal 6.2-12.0 [facility] Comment on above: Performed By: #### L 100.0100, L500.4050 ####[facility] [address] [place], [address] Platelets (Bld) [#/Vol] 375 10*3/uL Normal 150-450 [facility] Comment on above: Performed By: #### L 100.0100, L500.4050 ####[facility] [address] [place], [address] RBC (Bld) [#/Vol] 4.36 10*6/uL Normal 4.2-5.4 [facility] Comment on above: Performed By: #### L 100.0100, L500.4050 ####[facility] [address] [place], [address] RDW SD 38.3 fl Normal 35.1-43.9 [facility] Comment on above: Performed By: #### L 100.0100, L500.4050 ####[facility] [address] [place], [address] WBC (Bld) [#/Vol] 8.5 10*3/uL Normal 4.4-11.0 [facility] Comment on above: Performed By: #### L 100.0100, L500.4050 ####[facility] [address] [place], [address] Comprehensive Metabolic Prof ilon 04-17-2024 Albumin [Mass/Vol] 4.3 g/dL Normal 3.5-5.0 [facility] Comment on above: Performed By: #### L 100.0100, L500.4050 ####[facility] [address] [place], [address] Albumin/Globulin [Mass ratio] 1.6 {ratio} Normal 0.9-2.4 [facility] Comment on above: Performed By: #### L 100.0100, L500.4050 ####[facility] [address] [place], [address] ALK PHOS 86 U/L Normal 35-104 [facility] Comment on above: Performed By: #### L 100.0100, L500.4050 ####[facility] [address] [place], [address] ALT [Catalytic activity/Vol] 13 U/L Normal <=34 [facility] Comment on above: Performed By: #### L 100.0100, L500.4050 ####[facility] [address] [place], [address] AST [Catalytic activity/Vol] 20 U/L Normal <=31 [facility] Comment on above: Performed By: #### L 100.0100, L500.4050 ####[facility] [address] [place], [address] Bilirubin [Mass/Vol] 0.37 mg/dL Normal 0.00-1.30 [facility] Comment on above: Performed By: #### L 100.0100, L500.4050 ####[facility] [address], [address] BUN/CRE 11.8 RATIO Normal 10-20 [facility] Comment on above: Performed By: #### L 100.0100, L500.4050 ####[facility] [address] [place], [address] Calcium [Mass/Vol] 9.0 mg/dL Normal 7.6-11.0 [facility] Comment on above: Performed By: #### L 100.0100, L500.4050 ####[facility] [address] [place], [address] Chloride [Moles/Vol] 106 mmol/L Normal 98-108 [facility] Comment on above: Performed By: #### L 100.0100, L500.4050 ####[facility] [address] [place], [address] CO2 [Moles/Vol] 22.3 mmol/L Normal 21.0-32.0 [facility] Comment on above: Performed By: #### L 100.0100, L500.4050 ####[facility] [address] [place], [address] Creatinine [Mass/Vol] 0.72 mg/dL Normal 0.70-1.[address] [facility] Comment on above: Performed By: #### L 100.0100, L500.4050 ####[facility] [address] [place], [address] GAP 11 Normal 5-15 [facility] Comment on above: Performed By: #### L 100.0100, L500.4050 ####[facility] [address] [place], [address] GFR/1.73 sq M.predicted among non-blacks MDRD (S/P/Bld) [Vol rate/Area] 114 mL/min/{1.73_m2} Normal >60 [facility] Comment on above: Result Comment: mL/m in/1.73m2 CKD-EPI Creatinine Equation (2020) Performed By: #### L 100.0100, L500.4050 ####[facility] [address] [place], [address] Globulin (S) [Mass/Vol] 2.7 g/dL Normal 2.2-4.2 [facility] Comment on above: Performed By: #### L 100.0100, L500.4050 ####[facility] [address] [place], [address] Glucose [Mass/Vol] 89 mg/dL Normal 70-99 [facility] Comment on above: Performed By: #### L 100.0100, L500.4050 ####[facility] [address] [place], [address] Potassium [Moles/Vol] 4.1 mmol/L Normal 3.3-5.[address] [facility] Comment on above: Performed By: #### L 100.0100, L500.4050 ####[facility] [address] [place], [address] Sodium [Moles/Vol] 140 mmol/L Normal 133-145 [facility] Comment on above: Performed By: #### L 100.0100, L500.4050 ####[facility] [address] [place], [address] T PROT 7.0 g/dL Normal 5.9-8.4 [facility] Comment on above: Performed By: #### L 100.0100, L500.4050 ####[facility] [address] [place], [address] Urea nitrogen [Mass/Vol] 9 mg/dL Normal 4-19 [facility] Comment on above: Performed By: #### L 100.0100, L500.4050 ####[facility] [address] [place], [address] Internal Medicine Office Vis iton 04-17-2024 Internal Medicine Office Visit [facility] [address] [place] [address] [place] [address] OFFICE VISIT Date of Service: 04/17/24 MR#: [id number] Acct: [id number] Name: DOMINGA GONZÁLES Rep #: [id number] : 1990 Provider: Dr. 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 (more content not included)... Normal [facility] Basic Metabolic Profile (BMP )on 03-22-2024 BUN/CRE 9.6 RATIO Low 10-20 [facility] Comment on above: Performed By: #### L 500.2500, L100.0100 #### [facility] [address] [place], [address] CA,Total 9.2 mg/dL Normal 8.5-10.1 [facility] Comment on above: Performed By: #### L 500.2500, L100.0100 #### [facility] [address] [place], [address] Chloride [Moles/Vol] 107 mmol/L Normal 98-107 [facility] Comment on above: Performed By: #### L 500.2500, L100.0100 #### [facility] [address] [place], [address] CO2 [Moles/Vol] 27.0 mmol/L Normal 21.0-32.0 [facility] Comment on above: Performed By: #### L 500.2500, L100.0100 #### [facility] [address] [place], [address] Creatinine [Mass/Vol] 0.94 mg/dL Normal 0.55-1.[address] [facility] Comment on above: Result Comment: The validity of the calculated GFR GFRAA in patients over 70 years has not been determined. Clinical correlation is essential. Performed By: #### L 500.2500, L100.0100 #### [facility] [address] [place], [address] EST GFR - AA 89 mL/min Normal >60 [facility] Comment on above: Result Comment: Afri can Guamanian GFR Calc Performed By: #### L 500.2500, L100.0100 #### [facility] [address] [place], [address] GAP 5 Normal 5-15 [facility] Comment on above: Performed By: #### L 500.2500, L100.0100 #### [facility] [address] [place], [address] GFR/1.73 sq M.predicted among non-blacks MDRD (S/P/Bld) [Vol rate/Area] 73 mL/min/{1.73_m2} Normal >60 [facility] Comment on above: Result Comment: Non- GFR Calc Performed By: #### L 500.2500, L100.0100 #### [facility] [address] [place], [address] Glucose [Mass/Vol] 81 mg/dL Normal 74-106 [facility] Comment on above: Performed By: #### L 500.2500, L100.0100 #### [facility] [address] [place], [address] Potassium [Moles/Vol] 4.4 mmol/L Normal 3.5-5.[address] [facility] Comment on above: Performed By: #### L 500.2500, L100.0100 #### [facility] [address] [place], [address] Sodium [Moles/Vol] 138 mmol/L Normal 136-145 [facility] Comment on above: Performed By: #### L 500.2500, L100.0100 #### [facility] [address] [place], [address] Urea nitrogen [Mass/Vol] 9 mg/dL Normal 7-18 [facility] Comment on above: Performed By: #### L 500.2500, L100.0100 #### [facility] [address] [place], [address] CBC W/Diff, Automatedon 02-0 6-2024 Absolute Lymph 1.36 X10 3/uL Normal 0.83-4.51 [facility] Comment on above: Performed By: #### L 500.2500, L100.0100 #### [facility] [address] [place], [address] Absolute Neut 6.6 X10 3/uL Normal 2.0-7.7 [facility] Comment on above: Performed By: #### L 500.2500, L100.0100 #### [facility] [address] [place], [address] Basophils/100 WBC (Bld) 0.8 % Normal 0-1 [facility] Comment on above: Performed By: #### L 500.2500, L100.0100 #### [facility] [address] [place], [address] Eosinophils/100 WBC (Bld) 3.5 % Normal 0-5 [facility] Comment on above: Performed By: #### L 500.2500, L100.0100 #### [facility] [address] [place], [address] Erythrocyte distribution width (RBC) [Ratio] 11.8 % Normal 11.6-14.6 [facility] Comment on above: Performed By: #### L 500.2500, L100.0100 #### [facility] [address] [place], [address] Hematocrit (Bld) [Volume fraction] 43.7 % Normal 37-47 [facility] Comment on above: Performed By: #### L 500.2500, L100.0100 #### [facility] [address] [place], [address] Hemoglobin (Bld) [Mass/Vol] 14.1 g/dL Normal 12.0-15.0 [facility] Comment on above: Performed By: #### L 500.2500, L100.0100 #### [facility] [address] [place], [address] IG% 0.400 Normal 0.0-0.9 [facility] Comment on above: Result Comment: IG% - Immature Granulocytes (promyelocytes, myelocytes and metamyelocytes) > 1% indicates that a LEFT SHIFT is Present. Performed By: #### L 500.2500, L100.0100 #### [facility] [address] [place], [address] Lymphocytes/100 WBC (Bld) 14.7 % Low 19-41 [facility] Comment on above: Performed By: #### L 500.2500, L100.0100 #### [facility] [address] [place], [address] MCH (RBC) [Entitic mass] 28.9 pg Normal 27.0-32.0 [facility] Comment on above: Performed By: #### L 500.2500, L100.0100 #### [facility] [address] [place], [address] MCHC (RBC) [Mass/Vol] 32.3 g/dL Normal 32-[address] [facility] Comment on above: Performed By: #### L 500.2500, L100.0100 #### [facility] [address] [place], [address] MCV (RBC) [Entitic vol] 89.5 fL Normal 81-99 [facility] Comment on above: Performed By: #### L 500.2500, L100.0100 #### [facility] [address] [place], [address] Monocytes/100 WBC (Bld) 9.2 % Normal 0-10 [facility] Comment on above: Performed By: #### L 500.2500, L100.0100 #### [facility] [address] [place], [address] Neutrophils/100 WBC (Bld) 71.4 % High 47-70 [facility] Comment on above: Performed By: #### L 500.2500, L100.0100 #### [facility] [address] [place], [address] Nucleated RBC (Bld) [#/Vol] 0 10*3/uL Normal 0-5 [facility] Comment on above: Performed By: #### L 500.2500, L100.0100 #### [facility] [address] [place], [address] Platelet mean volume (Bld) [Entitic vol] 9.8 fL Normal 6.2-12.0 [facility] Comment on above: Performed By: #### L 500.2500, L100.0100 #### [facility] [address] [place], [address] Platelets (Bld) [#/Vol] 431 10*3/uL Normal 150-450 [facility] Comment on above: Performed By: #### L 500.2500, L100.0100 #### [facility] [address] [place], [address] RBC (Bld) [#/Vol] 4.88 10*6/uL Normal 4.2-5.4 [facility] Comment on above: Performed By: #### L 500.2500, L100.0100 #### [facility] [address] [place], [address] RDW SD 38.5 fl Normal 35.1-43.9 [facility] Comment on above: Performed By: #### L 500.2500, L100.0100 #### [facility] [address] [place], [address] WBC (Bld) [#/Vol] 9.3 10*3/uL Normal 4.4-11.0 [facility] Comment on above: Performed By: #### L 500.2500, L100.0100 #### [facility] [address] [place], [address] Internal Medicine Office Vis kiera 03-21-2024 Internal Medicine Office Visit [facility] [address] [place] [address] [place] [address] OFFICE VISIT Date of Service: 03/22/24 MR#: [id number] Acct: [id number] Name: DOMINGA GONZÁLES Rep #: [id number] : 1990 Provider: Dr. Maria Teresa patterson MD Age/Sex: 33/F Location: [facility] [place] Status: Signed Intake Vital Signs 12/16/23 14:33 [...] spouse current occupational status: employed current occupation: [employer] Smoking Status: Never smoker alcohol intake: current [...] her psychi (more content not included)... Normal [facility] MR/BMS.BPon 03-08-2024 MR/BMS.BP [facility] ry [address], [address] [place] [id number] OFFICE VISIT Date of Service: 03/08/24 MR#: [id number] Acct: [id number] Name: DOMINGA GONZÁLES Rep #: [id number] : 1990 Provider: Dr. Serge Barker se, DO Age/Sex: 33/F Location: [facility] [place] Status: Signed Intake Vital Signs 01/11/24 13:02 [...] 01/11/24 @ 13:[address] Serge Ellis, ) ADHD Depression, unspecified LISA (generalized anxiety disorder) [...] History current occupational status: employed current occupation: [employer] Smoking Status: Never smoker alcohol intake: current [...] Feels like she does not like the [employer] has worked and it makes her hungry [...] dressed A (more content not included)... 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 Serge Barker se, DO Age/Sex: 33/F Location: [facility] [place] Status: Signed Intake Vital Signs 07/25/23 13:27 [...] History current occupational status: employed current occupation: [employer] Smoking Status: Never smoker alcohol intake: current [...] doing good. Stopped following with [facility] [place] [facility]. Review of Systems Constitutional Reports: fatigue; [...] Exam - (more content not included)... Normal [facility] PT D/C Summary (1)on 024 PT D/C Summary (1) [facility] [address] [place] [address] / REHABILITATION SERVICES DISCHARGE SUMMARY MR#: [id number] Acct: [id number] Name: DOMINGA GONZÁLES Rep #: [id number] : 1990 33 From: Tomer Mitchell DPT, OCS, CSCS Referring Dr.: LIZZY Becerra Status: REG RCR Insurance: [employer] [...] please feel free to call me at [phone]. Thank you for the referral of this patient. Sincerely, Tomer Mitchell, JERONIMO, OCS, CSCS Balance/Gait/Functiona l tests Balance/Special Test Scores Lower Extremity Functional Score: 80 Improvement % Improvement: 100 01/11/24 1037 CC: LIZZY Becerra EBG Signed Normal [facility] PAP IG HPV APTIMA 16/18,45on 12-20-2023 ADEQ Comment Normal . [facility] Comment on above: Order Comment: Speci men Comment: [id number] Comment: Source.............CervixSpecimen Comment: LMP / Prev Treat...VRU=[id number] Comment: No. of containers..01 ThinPrep Vial Result Comment: Sati sfactory for evaluation. Endocervical and/or squamous metaplastic cells (endocervical component) are present. Performed By: #### L 7400.0280 ####[facility] [address] [place], [place], [address] COMM . Normal . [facility] Comment on above: Order Comment: Speci men Comment: [id number] Comment: Source.............CervixSpecimen Comment: LMP / Prev Treat...[id number]=[id number] Comment: No. of containers..01 ThinPrep Vial Performed By: #### L 7400.0280 ####[facility] [address] [place], [place], [address] COMMENT Comment Normal . [facility] Comment on above: Order Comment: Speci men Comment: [id number] Comment: Source.............CervixSpecimen Comment: LMP / Prev Treat...HXW=[id number] Comment: No. of containers..01 ThinPrep Vial Result Comment: This liquid based ThinPrep(R) pap test was screened with the use of an image guided system. Performed By: #### L 7400.0280 ####[facility] [address] [place], [place], [address] DIAG Comment Normal . [facility] Comment on above: Order Comment: Speci men Comment: [id number] Comment: Source.............CervixSpecimen Comment: LMP / Prev Treat...QHY=[id number] Comment: No. of containers..01 ThinPrep Vial Result Comment: NEGA TIVE FOR INTRAEPITHELIAL LESION OR MALIGNANCY. Performed By: #### L 7400.0280 ####[facility] [address] [place], [place], [address] HPV APTIMA, HR Negative Normal Negative [facility] Comment on above: Order Comment: Speci men Comment: [id number] Comment: Source.............CervixSpecimen Comment: LMP / Prev Treat...[id number]=[id number] Comment: No. of containers..01 ThinPrep Vial Result Comment: This nucleic acid amplification test detects fourteen high- risk HPV types (16,18,31,33,35,39,45,51,52,56,58,59,66,68) without differentiation. Performed By: #### L 7400.0280 ####[facility] [address] [place], [address] HPV [place] Rfx Comment Normal . [facility] Comment on above: Order Comment: Speci men Comment: [id number] Comment: Source.............CervixSpecimen Comment: LMP / Prev Treat...OSO=[id number] Comment: No. of containers..01 ThinPrep Vial Result Comment: Crit eria not met, HPV Genotype not performed. Performed at: - [address] [id number] Company Laborer: Tika Barajas MD, Phone: [phone] Performed at: = - [facility] [id number] Company Laborer: Tika Barajas MD, Phone: [phone] Performed By: #### L 7400.0280 ####[facility] [address] [place], [place], [address] PAPSMR Comment Normal . [facility] Comment on above: Order Comment: Speci men Comment: [id number] Comment: Source.............CervixSpecimen Comment: LMP / Prev Treat...[id number]=[id number] Comment: No. of containers..01 ThinPrep Vial Result Comment: The Pap smear is a screening test designed to aid in the detection of premalignant and malignant conditions of the uterine cervix. It is not a diagnostic procedure and should not be used as the sole means of detecting cervical cancer. Both false-positive and false-negative reports do occur. Performed By: #### L 7400.0280 ####[facility] [address] [place], [address] PERFORM Comment Normal . [facility] Comment on above: Order Comment: Speci men Comment: [id number] Comment: Source.............CervixSpecimen Comment: LMP / Prev Treat...[id number] Comment: No. of containers..01 ThinPrep Vial Result Comment: Perico Chin, Sand Blaster (ASCP) Performed By: #### L 7400.0280 ####[facility] [address] [place], [place], [address] Internal Medicine Office Vis iton 12-16-2023 Internal Medicine Office Visit [facility] [address] [place] [address] [place] [address] OFFICE VISIT Date of Service: 12/16/23 MR#: [id number] Acct: [id number] Name: DOMINGA GONZÁLES Rep #: [id number] : 1990 Provider: LIZZY morse Age/Sex: 33/F Location[place] [facility] [place] Status: Signed Intake Vital Signs 11/30/23 07:51 [...] you fallen in the past year?: No PFSH Medical History Depression, unspecified LISA [...] History current occupational status: employed current occupation: [employer] Smoking Status: Never smoker alcohol intake: current alcohol intake frequency: holidays/special occasions only substance use type: does not use what type of physical activity do you participate in: other details: Cardio frequency: 3-4 times per week do you feel safe at home: Yes additional social history: - Joel HPI HPI Chief Complaint: FU FROM THYROID LABS Details: DOMINGA GONZÁLES, is a 33 F [...] urinary f (more content not included)... Normal [facility] Director Supply Chain Office Visit Reporton 12-12-2023 Director Supply Chain Office Visit Report [facility] [address], [address] [place] [address] OFFICE VISIT Date of Service: 12/12/23 MR#: [id number] Acct: [id number] Name: DOMINGA GONZÁLES Rep #: [id number] : 1990 Provider: LIZZY wood Age/Sex: 33/F [place] [facility]: Signed Intake Vital Signs 12/07/22 10:13 02/03/23 09:36 07/25/23 13:27 11/30/23 07:51 12/12/23 12:59 12/12/23 13:06 Height 5 ft 4 in 5 ft 4 in 5 ft 4 in 5 ft 4 in 5 ft 4 in 5 ft 4 in Weight: 162 lb 2 oz BMI 27.8 BP 114/72 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 Normal [facility] Thyroid Peroxidase ABon 11-15 THYR PEROX AB 74 IU/mL High 0-34 [facility] Comment on above: Order Comment: Speci men Comment: A duplicate report has been generateddue to demographicSpecimen Comment: updates. Result Comment: Perf ormed at: CB - [facility] [address] [id number] Company Laborer: Pedro Garduno PhD, Phone: [phone] Performed By: #### L 142.6000, Y280.3842, B4354.1902 ####[facility] [address] [place], [address] Inital Evaluation (1) - PTon 12-05-2023 Inital Evaluation (1) - PT [facility] [address] [place] [address] [address] [place] [address] / REHABILITATION SERVICES INITIAL EVALUATION MR#: [id number] Acct: [id number] Name: DOMINGA GONZÁLES Rep #: [id number] : 1990 33 From: Will Seals DPT [...] a few years ago. 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 She reports not doing much recreational activities due to her work and school schedule. She reports averaging 90437 steps a day while at work. Pt. [...] to be FAXED BACK to us at [phone] for Medicare purposes. For Medicare only, by signing this I certify the plan of care. Please let me know if there are questions or concerns regarding this plan of care. Physician Signature: Date:__ 12/05/23 1158 CC: LIZZY Becerra CLS Signed Normal [facility] L3300.0940on 12-03-2023 VIT D,25 HYDROX Normal [facility] Comment on above: Result Comment: TEST RESULTS LIMITS Vitamin D, 25-Hydroxy 19.1 Low ng/mL 30.0-100.0 Vitamin D deficiency has been defined by the [place] of Medicine and an Endocrine Society practice guideline as a level of serum 25-OH vitamin D less than 20 ng/mL (1,2). The Endocrine Society went on to further define vitamin D insufficiency as a level between 21 and 29 ng/mL (2). 1. IOM ([place] of Medicine). 2010. Dietary reference intakes for calcium and D. [place]: The National Academies Press. 2. Fidelia MF, Jael NC, Ellis SCHMID, et al. Evaluation, treatment, and prevention of vitamin D deficiency: an Endocrine Society clinical practice guideline. JCEM. 2010; 96(7):1911-30. TESTING PERFORMED AT [facility]. ORIGINAL REPORT ON FILE IN LAB CONTAINS ADDITIONAL TEST SITE INFORMATION. Performed By: #### L 3300.0940 #### [facility] [address] [place], [place], [address] T4 Free Directon 12-01-2023 T4 FREE DIRECT 0.71 ng/dL Low 0.76-1.46 [facility] Comment on above: Performed By: #### L 506.0400, L534.0520, L3300.6900 ####[facility] [address] [place], [place], [address] Thyroid Stim Hormone (TSH)on 12-01-2023 TSH 1.600 uIU/mL Normal 0.358-3.740 [facility] Comment on above: Performed By: #### L 506.0400, L593.6720, L3300.6900 ####[facility] [address] [place], [place], [address] MR/FABIANO.BPon 11-30-2023 MR/FABIANO. [address], [address] [place] [address] OFFICE VISIT Date of Service: 11/30/23 MR#: [id number] Acct: [id number] Name: DOMINGA GONZÁLES Rep #: [id number] : 1990 Provider: Dr. Serge Barker se, Age/Sex: 33/F Location: [facility] [place] Status: Signed Intake Vital Signs 07/25/23 13:27 [...] mg PO BID PRN 11/30/23 History (Valtrex) [facility] Medical History (Updated 11/30/23 @ 14:[address] Serge Ellis, DO) Depression, unspecified School physical exam LISA (generalized [...] History current occupational status: employed current occupation: [employer] Smoking Status: Never smoker alcohol intake: current [...] the stress. Has been following [facility] [place] [facility]. Grades have been worsening in recent [...] concentrating Endoc (more content not included)... Normal [facility] Absolute lymphocyte countOrd ered By: Talon Ray on 03-19-2022 Lymphocytes Auto (Unsp spec) [#/Vol] 1.66 10*3/uL 0.83-4.51 [facility] Basophil percentageOrdered B y: Talon Ray on 03-19-2022 Basophils/100 WBC (Bld) 0.8 % 0-1 [facility] Eosinophils/100 WBC (Bld) 4.4 % 0-5 [facility] Neutrophils (Bld) [#/Vol] 5.8 10*3/uL 2.0-7.7 [facility] Neutrophils/100 WBC (Bld) 66.2 % 47-70 [facility] WBC (Bld) [#/Vol] 8.8 10*3/uL 4.4-11.0 [facility] Blood erythrocytes count (nu mber/volume)Ordered By: Talon Ray on 03-19-2022 RBC (Bld) [#/Vol] 4.83 10*6/uL 4.2-5.4 [facility] Blood hemoglobin measurement (mass/volume)Ordered By: Talon Ray on 03-19-2022 Hemoglobin (Bld) [Mass/Vol] 14.6 g/dL 12.0-15.0 [facility] Blood lymphocytes/100 leukoc ytesOrdered By: Tlaon Ray on 03-19-2022 Lymphocytes/100 WBC (Bld) 18.9 % 19-41 [facility] Blood monocytes/100 leukocyt esOrdered By: Talon Ray on 03-19-2022 Monocytes/100 WBC (Bld) 9.4 % 0-10 [facility] Blood platelet mean volumeOr dered By: Talon Ray on 03-19-2022 Platelet mean volume (Bld) [Entitic vol] 9.5 fL 6.2-12.0 [facility] Determination of erythrocyte mean corpuscular volume (MCV)Ordered By: Talon Ray on 03-19-2022 MCV (RBC) [Entitic vol] 87.6 fL 81-99 [facility] Hematocrit Auto (Bld) [Volum e fraction]Ordered By: Talon Ray on 03-19-2022 Hematocrit (Bld) [Volume fraction] 42.3 % 37-47 [facility] Laboratory - Hematology and Cell countsOrdered By: Talon Ray on 03-19-2022 Erythrocyte distribution width (RBC) [Entitic vol] 38.9 fL 35.1-43.9 [facility] Erythrocyte distribution width (RBC) [Ratio] 12.0 % 11.6-14.6 [facility] Immature granulocytes/100 WBC (Bld) 0.300 % 0.0-0.9 [facility] Comment on above: IG% - Immature Granu locytes (promyelocytes, myelocytes and metamyelocytes) > 1% indicates that a LEFT SHIFT is Present. MCH (RBC) [Entitic mass] 30.2 pg 27.0-32.0 [facility] Nucleated RBC/100 WBC (Bld) [Ratio] 0 % 0-5 [facility] MCHC Auto (RBC) [Mass/Vol]Or dered By: Talon Ray on 03-19-2022 MCHC (RBC) [Mass/Vol] 34.5 g/dL 32-[address] [facility] Platelets bldOrdered By: Amelie Ray on 03-19-2022 Platelets (Bld) [#/Vol] 372 10*3/uL 150-450 [facility] Iron measurement (mass/mass) Ordered By: Shayla Hernandez on 03-18-2022 Iron (Unsp spec) [Mass/Mass] 49 ug/dL 50-170 [facility] Laboratory - Chemistry and C hemistry - challengeOrdered By: Shayla Hernandez on 03-18-2022 Transferrin [Mass/Vol] 346 mg/dL 192-364 [facility] Comment on above: Performed at: [facility] - [address] [id number] Director: Pedro Garduno PhD, Phone: [phone] No Panel InformationOrdered By: Shayla Hernandez on 03-18-2022 Total Iron Binding Capacity 437 ug/dL 250-450 [facility] Serum or plasma ferritin waldo surement (mass/volume)Ordered By: Shayla Hernandez on 03-18-2022 Ferritin [Mass/Vol] 32 ng/mL 8-252 [facility] Serum or plasma iron saturat ion measurement (mass fraction)Ordered By: Shayla Hernandez on 03-18-2022 Iron saturation [Mass fraction] 11.2 % 15.0-55.0 [facility] Basophil percentageOrdered B y: Talon Ray on 01-12-2022 Cholesterol [Mass/Vol] 216 mg/dL <200 [facility] Comment on above: <200 mg/dL Desirable 200-240 mg/dL Borderline >240 mg/dL High Risk Triglyceride [Mass/Vol] 192 mg/dL <199 [facility] Comment on above: The drugs N-Acetylcy steine and Metamizole may falsely depress this assay.Serum Triglycerides Reference Interval Normal <150 mg/dL Borderline high 150 - 199 mg/dL High 200 - 499 mg/dL Very High > or = 500 mg/dL Iron measurement (mass/mass) Ordered By: Talon Ray on 01-12-2022 Iron (Unsp spec) [Mass/Mass] 76 ug/dL 50-170 [facility] Laboratory - Chemistry and C hemistry - challengeOrdered By: Talon Ray on 01-12-2022 Cobalamin (Vitamin B12) [Mass/Vol] 400 pg/mL 211-911 [facility] No Panel InformationOrdered By: Talon Ray on 01-12-2022 Total Iron Binding Capacity 463 ug/dL 250-450 [facility] Vitamin D 25-Hydroxy 26.6 ng/mL [facility] Comment on above: Vitamin D 25(OH) Sta tus Range Deficiency <20 ng/mL (50nmol/L) Insufficiency 20 - 30 ng/mL (50 - 75 nmol/L) Sufficiency 30 - 100 ng/mL (75 - 250 nmol/L) Toxicity >100 ng/mL (>250 nmol/L) Serum or plasma cholesterol in HDL measurement (mass/volume)Ordered By: Talon Ray on 01-12-2022 Cholesterol in HDL [Mass/Vol] 66 mg/dL >40 [facility] Comment on above: The drugs N-Acetylcy steine and Metamizole may falsely depress this assay. Reference Range HDL <40 mg/dL Low HDL Cholesterol HDL >or= 60 mg/dL High HDL Cholesterol Serum or plasma cholesterol in VLDL measurement (mass/volume)Ordered By: Talon Ray on 01-12-2022 Cholesterol in VLDL [Mass/Vol] 38 mg/dL 5-40 [facility] Serum or plasma ferritin waldo surement (mass/volume)Ordered By: Talon aRy on 01-12-2022 Ferritin [Mass/Vol] 25 ng/mL 8-252 [facility] Serum or plasma iron saturat ion measurement (mass fraction)Ordered By: Talon Ray on 01-12-2022 Iron saturation [Mass fraction] 16.4 % 15.0-55.0 [facility] Serum or plasma low density lipoprotein (LDL) cholesterol measurement (mass/volume)Ordered By: Talon Ray on 01-12-2022 Cholesterol in LDL [Mass/Vol] 112 mg/dL 0-130 [facility] Whole blood hemoglobin A1c/t otal hemoglobin ratio (mass fraction)Ordered By: Talon Ray on 01-12-2022 HbA1c (Bld) [Mass fraction] 4.7 % 3.8-5.6 [facility] Comment on above: Normal < 5.7 % Predi abetic 5.7 - 6.4 % Diabetic >or= 6.5 % Please note range changes. Absolute lymphocyte countOrd ered By: Shayla Hernandez on 12-15-2021 Lymphocytes Auto (Unsp spec) [#/Vol] 1.68 10*3/uL 0.83-4.51 [facility] Basophil percentageOrdered B y: Shayla Hernandez on 12-15-2021 Basophils/100 WBC (Bld) 0.7 % 0-1 [facility] Chloride [Moles/Vol] 106 mmol/L 98-107 [facility] Eosinophils/100 WBC (Bld) 4.6 % 0-5 [facility] Glucose [Mass/Vol] 79 mg/dL 74-106 [facility] Neutrophils (Bld) [#/Vol] 4.7 10*3/uL 2.0-7.7 [facility] Neutrophils/100 WBC (Bld) 61.7 % 47-70 [facility] Potassium [Moles/Vol] 3.9 mmol/L 3.5-5.[address] [facility] Sodium [Moles/Vol] 138 mmol/L 136-145 [facility] WBC (Bld) [#/Vol] 7.7 10*3/uL 4.4-11.0 [facility] Blood erythrocytes count (nu mber/volume)Ordered By: Shayla Hernandez on 12-15-2021 RBC (Bld) [#/Vol] 4.40 10*6/uL 4.2-5.4 [facility] Blood hemoglobin measurement (mass/volume)Ordered By: Shayla Hernandez on 12-15-2021 Hemoglobin (Bld) [Mass/Vol] 13.7 g/dL 12.0-15.0 [facility] Blood lymphocytes/100 leukoc ytesOrdered By: Shayla Hernandez on 12-15-2021 Lymphocytes/100 WBC (Bld) 22.0 % 19-41 [facility] Blood monocytes/100 leukocyt esOrdered By: Shayla Hernandez on 12-15-2021 Monocytes/100 WBC (Bld) 10.7 % 0-10 [facility] Blood platelet mean volumeOr dered By: Shayla Hernandez on 12-15-2021 Platelet mean volume (Bld) [Entitic vol] 9.4 fL 6.2-12.0 [facility] Determination of erythrocyte mean corpuscular volume (MCV)Ordered By: Shayla Hernandez on 12-15-2021 MCV (RBC) [Entitic vol] 88.9 fL 81-99 [facility] Hematocrit Auto (Bld) [Volum e fraction]Ordered By: Shayla Hernandez on 12-15-2021 Hematocrit (Bld) [Volume fraction] 39.1 % 37-47 [facility] Laboratory - Chemistry and C hemistry - challengeOrdered By: Shayla Hernandez on 11-01-2022 CO2 [Moles/Vol] 26.0 mmol/L 21.0-32.0 [facility] Magnesium [Mass/Vol] 2.2 mg/dL 1.6-2.6 [facility] Urea nitrogen/Creatinine [Mass ratio] 8.9 mg/mg 10-20 [facility] Laboratory - Hematology and Cell countsOrdered By: Shayla Hernandez on 12-15-2021 Erythrocyte distribution width (RBC) [Entitic vol] 38.2 fL 35.1-43.9 [facility] Erythrocyte distribution width (RBC) [Ratio] 11.8 % 11.6-14.6 [facility] Immature granulocytes/100 WBC (Bld) 0.300 % 0.0-0.9 [facility] Comment on above: IG% - Immature Granu locytes (promyelocytes, myelocytes and metamyelocytes) > 1% indicates that a LEFT SHIFT is Present. MCH (RBC) [Entitic mass] 31.1 pg 27.0-32.0 [facility] Nucleated RBC/100 WBC (Bld) [Ratio] 0 % 0-5 [facility] MCHC Auto (RBC) [Mass/Vol]Or dered By: Shayla Hernandez on 12-15-2021 MCHC (RBC) [Mass/Vol] 35.0 g/dL 32-[address] [facility] No Panel InformationOrdered By: Shayla Hernandez on 12-15-2021 Estimated GFR (MDRD) Amer 132 mL/min >60 [facility] Comment on above: GFR Calc Estimated GFR (MDRD) Non-Af Amer 109 mL/min >60 [facility] Comment on above: Non- GFR Calc Thyroid Stimulating Hormone (TSH) 1.44 uIU/mL 0.358-3.74 [facility] Platelets bldOrdered By: Chucky Hernandez on 12-15-2021 Platelets (Bld) [#/Vol] 337 10*3/uL 150-450 [facility] Serum or plasma calcium giovany urement (mass/volume)Ordered By: Shayla Hernandez on 12-15-2021 Calcium [Mass/Vol] 8.9 mg/dL 8.5-10.1 [facility] Serum or plasma creatinine m easurement (mass/volume)Ordered By: Shayla Hernandez on 12-15-2021 Creatinine [Mass/Vol] 0.68 mg/dL 0.55-1.[address] [facility] Comment on above: The validity of the calculated GFR & GFRAA in patients over 70 years has not been determined. Clinical correlation is essential. Serum or plasma urea nitroge n measurement (mass/volume)Ordered By: Shayla Hernandez on 12-15-2021 Urea nitrogen [Mass/Vol] 6 mg/dL 7-18 [facility] Thin prep Papanicolaou smear with manual screeningOrdered By: Shayla Hernandez on 12-15-2021 Thin prep Papanicolaou smear with manual screening 6 5-15 [facility] No Panel Informationon 09-01 D-Dimer Quantitative (PE/DVT) < 0.27 FEU/ug/m 0.27-0.49 [facility] Work Phone: Comment on above: NORMAL D-Dimer level (<0.50) indicates no DVT or PE. Laboratory - Chemistry and C hemistry - challengeon 08-19-2021 HCG ( test) Ql (U) Negative [facility] Work Phone: Comment on above: Very dilute urine sp ecimens, as indicated by a low specificgravity, may not contain business office representative levels of hCG. If is still suspected, a first morning urinespecimen should be collected 48 hours later and tested. Microbiology: Culture, Genit al Comprehensiveon 12-07-2016 CUV Neisseria or beta-hemolytic Streptococcus isolated. Invalid Interpretation Code [facility][1] Microbiology: (P) Culture, G enital Comprehensiveon 12-06-2016 CUV Neisseria or beta-hemolytic Streptococcus isolated. Invalid Interpretation Code [facility][1] Microbiology: (P) Culture, G enital Comprehensiveon 12-04-2016 CUV . Invalid Interpretation Code [facility][1] Office Visit: Annualon 09-29 Documentation of current medications (procedure) Done Invalid Interpretation Code [facility][1] Fall risk assessment No Invalid Interpretation Code [facility][1] Tobacco smoking status NHIS Never Invalid Interpretation Code [facility][1] Tobacco smoking status NHIS Never smoker Invalid Interpretation Code [facility][1] Tobacco use HS Never smoker Invalid Interpretation Code [facility][1] Lab Report: Basic Metabolic Profile (BMP)on 06-03-2016 Anion gap 2 mmol/L Low 5-15 [facility] Work Phone: [phone] Anion gap 4 molar conc 2 Low 5-15 [facility][1] BUN/Creatinine Ratio 9.5 RATIO Low 10-[address] [facility] Work Phone: [phone] Calcium 8.9 mg/dL Invalid Interpretation Code 8.5-10.1 [facility] Work Phone: [phone] Chloride 108 mmol/L High 98-107 [facility] Work Phone: [phone] CO2 26.0 mmol/L Invalid Interpretation Code 21.0-32.0 [facility] Work Phone: [phone] CO2 ppres (BldV) 26.0 mmol/L Invalid Interpretation Code 21.0-32.0 [facility][1] Creatinine 0.74 mg/dL Invalid Interpretation Code 0.55-1.02 [facility] Work Phone: [phone] eGFR (non-black) 102 mL/min/{1.73_m2} Invalid Interpretation Code >60 [facility] Work Phone: [phone] eGFR (non-black) 124 mL/min/{1.73_m2} Invalid Interpretation Code >60 [facility] Work Phone: [phone] EST GFR - AA 124 mL/min Invalid Interpretation Code >60 [facility][1] Glucose 80 mg/dL Invalid Interpretation Code 70-110 [facility] Work Phone: [phone] Glucose mass conc 80 mg/dL Invalid Interpretation Code 70-110 [facility] Work Phone: [phone] Potassium 3.8 mmol/L Invalid Interpretation Code 3.5-5.1 [facility] Work Phone: [phone] Sodium 136 mmol/L Invalid Interpretation Code 136-145 [facility] Work Phone: [phone] Urea nitrogen 7 mg/dL Invalid Interpretation Code 7-18 [facility] Work Phone: [phone] Lab Report: Magnesiumon 04-2 Magnesium 2.1 mg/dL Invalid Interpretation Code 1.8-2.4 [facility] Work Phone: [phone] Office Visiton 06-03-2016 Documentation of current medications (procedure) Done Invalid Interpretation Code [employer] Phone: [phone] Replaced Document: Elmo Castorena CG Observationson 06-03-2016 EKG QRS axis 44 deg Invalid Interpretation Code [facility] Work Phone: [phone] electrocardiogram interpretation Marked sinus Bradycardia BORDERLINE RHYTHM Invalid Interpretation Code [employer] Work Phone: [phone] GE use only - for [employer] import when terms are not otherwise specified 406 ms Invalid Interpretation Code [facility] Work Phone: [phone] Interpretation Marked sinus Bradycardia BORDERLINE RHYTHM Invalid Interpretation Code [employer] Phone: [phone] P Caldwell 59 deg Invalid Interpretation Code [employer] Work Phone: [phone] P wave axis, electrocardiogram 59 deg Invalid Interpretation Code [employer] Work Phone: [phone] ME Interval 124 ms Invalid Interpretation Code [employer] Work Phone: [phone] ME interval, electrocardiogram 124 ms Invalid Interpretation Code [employer] Work Phone: [phone] Pulse (Heart Rate) 47 /min Invalid Interpretation Code [employer] Phone: [phone] QRS axis, electrocardiogram 44 deg Invalid Interpretation Code [employer] Phone: [phone] QRS Duration 86 ms Invalid Interpretation Code [employer] Phone: [phone] QRS duration, electrocardiogram 86 ms Invalid Interpretation Code [facility] Work Phone: [phone] QT Interval new path ms Invalid Interpretation Code [facility] Work Phone: [phone] QT interval, electrocardiogram new path ms Invalid Interpretation Code [facility] Work Phone: [phone] QTc Weir 406 ms Invalid Interpretation Code [employer] Work Phone: [phone] T Caldwell 26 deg Invalid Interpretation Code [employer] Work Phone: [phone] T wave axis, electrocardiogram 26 deg Invalid Interpretation Code [employer] Work Phone: [phone] Clinical Lists Update: Prelo instrument tech 06-02-2016 Tobacco use CPHS Never smoker Invalid Interpretation Code [facility] Work Phone: [phone] Clinical Lists Update: Prelo instrument tech 05-12-2016 Hematocrit (HCT) 44.3 % Invalid Interpretation Code [facility] Work Phone: [phone] Hemoglobin (HGB) 15.2 g/dL Invalid Interpretation Code [facility] Work Phone: [phone] Platelets 297 10*3/mm3 Invalid Interpretation Code [facility] Work Phone: [phone] Thyroid stimulating hormone (TSH) 1.93 u[iU]/mL Invalid Interpretation Code [facility] Work Phone: [phone] WBC (Leukocytes) 7.9 10*3/uL Invalid Interpretation Code [facility] Work Phone: [phone] Office Visit: Annualon 03-18 General categories [Interpretation] of Cervical or vaginal smear or scraping by Cyto stain ASCUS Invalid Interpretation Code [facility] Lab Report: CBCDon 3 Erythrocytes (RBC) 4.24 10*6/uL Normal 4.2-5.[address] [facility] Work Phone: [phone] Lab Report: LIPIDon 05-11-19 13 Cholesterol 197 mg/dL Normal 200 [facility] Work Phone: [phone] HDL Cholesterol 56 mg/dL Normal [facility] Work Phone: [phone] LDL Cholesterol 113 mg/dL Normal 0-130 [facility] Work Phone: [phone] Triglyceride 138 mg/dL Normal [facility] Work Phone: [phone] very low density lipoproteins 28 mg/dL Normal 5-40 [facility] Work Phone: [phone] Lab Report: LIVERon 05-11-19 13 Alanine aminotransferase (ALT) 15 U/L Normal 12-78 [facility] Work Phone: [phone] Albumin 3.7 g/dL Normal 3.4-5.0 [facility] Work Phone: [phone] Alkaline phosphatase (ALP) 49 U/L Low 50-136 [facility] Work Phone: [phone] ALP enzyme act/vol (Bld) 49 U/L Low 50-136 [facility][1] Aspartate aminotransferase (AST) 13 U/L Low 15-37 [facility] Work Phone: [phone] Bilirubin (direct) 0.14 mg/dL Normal 0.00-0.30 [facility] Work Phone: [phone] Bilirubin (total) 0.50 mg/dL Normal 0.00-1.00 [facility] Work Phone: [phone] Lab Report: T4on 05-10-2012 Thyroxine (T4) 13.9 ug/dL Normal 4.8-13.9 [facility] Work Phone: [phone] Replaced Document: Elmo E CG Observationson 05-10-2012 Pulse (Heart Rate) 412 ms Invalid Interpretation Code [facility] Work Phone: [phone] Vital Signs Date Time Vital Sign Value Performing Clinician Facility 03-01-2022 15:53-0500 Body height 162.56 cm BEHAVIORAL INSTRUCTOR-C Talon Ray BEHAVIORAL INSTRUCTOR Work Phone: [facility] 03-01-2022 15:53-0500 Body mass index (BMI) [Ratio] 27.3 kg/m2 BEHAVIORAL INSTRUCTOR-C Talon Ray BEHAVIORAL INSTRUCTOR Work Phone: [facility] 03-01-2022 15:53-0500 Body weight 72.12 kg BEHAVIORAL INSTRUCTOR-C Talon Ray BEHAVIORAL INSTRUCTOR Work Phone: [facility] 03-01-2022 15:53-0500 Diastolic blood pressure 79 mm[Hg] BEHAVIORAL INSTRUCTOR-C Talon Ray BEHAVIORAL INSTRUCTOR Work Phone: [facility] 03-01-2022 15:53-0500 Systolic blood pressure 128 mm[Hg] BEHAVIORAL INSTRUCTOR-C Talon Ray BEHAVIORAL INSTRUCTOR Work Phone: [facility] 01-06-2022 16:37-0500 Body temperature 97.1 [degF] BEHAVIORAL INSTRUCTOR-C Talon Ray BEHAVIORAL INSTRUCTOR Work Phone: [facility] 01-06-2022 16:37-0500 Body weight 66.9 kg BEHAVIORAL INSTRUCTOR-C Talon Ray BEHAVIORAL INSTRUCTOR Work Phone: [facility] 01-06-2022 16:37-0500 Diastolic blood pressure 88 mm[Hg] BEHAVIORAL INSTRUCTOR-C Talon Ray BEHAVIORAL INSTRUCTOR Work Phone: [facility] 01-06-2022 16:37-0500 Heart rate 73 /min BEHAVIORAL INSTRUCTOR-C Talon Ray BEHAVIORAL INSTRUCTOR Work Phone: [facility] 01-06-2022 16:37-0500 Respiratory rate 18 /min BEHAVIORAL INSTRUCTOR-C Talon Ray BEHAVIORAL INSTRUCTOR Work Phone: [facility] 01-06-2022 16:37-0500 SaO2% (BldA) [Mass fraction] 99 % BEHAVIORAL INSTRUCTOR-C Talon Ray BEHAVIORAL INSTRUCTOR Work Phone: [facility] 01-06-2022 16:37-0500 Systolic blood pressure 134 mm[Hg] BEHAVIORAL INSTRUCTOR-C Talon Ray BEHAVIORAL INSTRUCTOR Work Phone: [facility] 12-15-2021 15:22-0400 Body height 162.56 cm BEHAVIORAL INSTRUCTOR-C Talon Ray BEHAVIORAL INSTRUCTOR Work Phone: [facility] Work Phone: 12-15-2021 15:22-0400 Body mass index (BMI) [Ratio] 25.2 kg/m2 BEHAVIORAL INSTRUCTOR-C Talon Ray BEHAVIORAL INSTRUCTOR Work Phone: [facility] 12-15-2021 15:22-0400 Body weight 66.67 kg BEHAVIORAL INSTRUCTOR-C Talon Ray BEHAVIORAL INSTRUCTOR Work Phone: [facility] 12-15-2021 15:22-0400 Diastolic blood pressure 79 mm[Hg] BEHAVIORAL INSTRUCTOR-C Talon Ray BEHAVIORAL INSTRUCTOR Work Phone: [facility] 12-15-2021 15:22-0400 Heart rate 85 /min BEHAVIORAL INSTRUCTOR-C Talon Ray BEHAVIORAL INSTRUCTOR Work Phone: [facility] 12-15-2021 15:22-0400 Respiratory rate 18 /min BEHAVIORAL INSTRUCTOR-C Talon Ray BEHAVIORAL INSTRUCTOR Work Phone: [facility] 12-15-2021 15:22-0400 SaO2% (BldA) [Mass fraction] 100 % BEHAVIORAL INSTRUCTOR-C Talon Ray BEHAVIORAL INSTRUCTOR Work Phone: [facility] 12-15-2021 15:22-0400 Systolic blood pressure 125 mm[Hg] BEHAVIORAL INSTRUCTOR-C Talon Ray BEHAVIORAL INSTRUCTOR Work Phone: [facility] 09-01-2021 15:00-0400 Body height 162.56 cm BEHAVIORAL INSTRUCTOR-C Talon Ray BEHAVIORAL INSTRUCTOR Work Phone: [facility] Work Phone: 09-01-2021 15:00-0400 Body mass index (BMI) [Ratio] 23.6 kg/m2 BEHAVIORAL INSTRUCTOR-C Talon Ray BEHAVIORAL INSTRUCTOR Work Phone: [facility] Work Phone: 09-01-2021 15:00-0400 Body weight 62.59 kg BEHAVIORAL INSTRUCTOR-C Talon Ray BEHAVIORAL INSTRUCTOR Work Phone: [facility] Work Phone: 09-01-2021 15:00-0400 Diastolic blood pressure 77 mm[Hg] BEHAVIORAL INSTRUCTOR-C Talon Ray BEHAVIORAL INSTRUCTOR Work Phone: [facility] Work Phone: 09-01-2021 15:00-0400 Heart rate 69 /min BEHAVIORAL INSTRUCTOR-C Talon Ray BEHAVIORAL INSTRUCTOR Work Phone: [facility] Work Phone: 09-01-2021 15:00-0400 SaO2% (BldA) [Mass fraction] 98 % BEHAVIORAL INSTRUCTOR-C Talon Ray BEHAVIORAL INSTRUCTOR Work Phone: [facility] Work Phone: 09-01-2021 15:00-0400 Systolic blood pressure 126 mm[Hg] BEHAVIORAL INSTRUCTOR-C Talon Ray BEHAVIORAL INSTRUCTOR Work Phone: [facility] Work Phone: 08-19-2021 07:14-0400 Body temperature 97.4 [degF] BEHAVIORAL INSTRUCTOR-C Talon Ray BEHAVIORAL INSTRUCTOR Work Phone: [facility] Work Phone: 08-19-2021 07:14-0400 Diastolic blood pressure 63 mm[Hg] BEHAVIORAL INSTRUCTOR-C Talon Ray BEHAVIORAL INSTRUCTOR Work Phone: [facility] Work Phone: 08-19-2021 07:14-0400 Heart rate 62 /min BEHAVIORAL INSTRUCTOR-C Talon Ray BEHAVIORAL INSTRUCTOR Work Phone: [facility] Work Phone: 08-19-2021 07:14-0400 Respiratory rate 14 /min BEHAVIORAL INSTRUCTOR-C Talon Ray BEHAVIORAL INSTRUCTOR Work Phone: [facility] Work Phone: 08-19-2021 07:14-0400 SaO2% (BldA) [Mass fraction] 100 % BEHAVIORAL INSTRUCTOR-C Talon Ray BEHAVIORAL INSTRUCTOR Work Phone: [facility] Work Phone: 08-19-2021 07:14-0400 Systolic blood pressure 103 mm[Hg] BEHAVIORAL INSTRUCTOR-C Talon Ray BEHAVIORAL INSTRUCTOR Work Phone: [facility] Work Phone: 08-19-2021 06:11-0400 Body height 162.56 cm BEHAVIORAL INSTRUCTOR-C Talon Ray BEHAVIORAL INSTRUCTOR Work Phone: [facility] Work Phone: 08-19-2021 06:11-0400 Body mass index (BMI) [Ratio] 23.1 kg/m2 BEHAVIORAL INSTRUCTOR-C Talon Ray BEHAVIORAL INSTRUCTOR Work Phone: [facility] Work Phone: 08-19-2021 06:11-0400 Body weight 61 kg BEHAVIORAL INSTRUCTOR-C Talon Ray BEHAVIORAL INSTRUCTOR Work Phone: [facility] Work Phone: 05-26-2021 13:03-0400 Body temperature 98.5 [degF] BEHAVIORAL INSTRUCTOR-C Talon Ray BEHAVIORAL INSTRUCTOR Work Phone: [facility] Work Phone: 05-26-2021 13:03-0400 Diastolic blood pressure 68 mm[Hg] BEHAVIORAL INSTRUCTOR-C Talon Ray BEHAVIORAL INSTRUCTOR Work Phone: [facility] Work Phone: 05-26-2021 13:03-0400 Heart rate 77 /min BEHAVIORAL INSTRUCTOR-C Talon Ray BEHAVIORAL INSTRUCTOR Work Phone: [facility] Work Phone: 05-26-2021 13:03-0400 Respiratory rate 14 /min BEHAVIORAL INSTRUCTOR-C Talon Ray BEHAVIORAL INSTRUCTOR Work Phone: [facility] Work Phone: 05-26-2021 13:03-0400 SaO2% (BldA) [Mass fraction] 99 % BEHAVIORAL INSTRUCTOR-C Talon Ray BEHAVIORAL INSTRUCTOR Work Phone: [facility] Work Phone: 05-26-2021 13:03-0400 Systolic blood pressure 112 mm[Hg] BEHAVIORAL INSTRUCTOR-C Talon Ray BEHAVIORAL INSTRUCTOR Work Phone: [facility] Work Phone: 04-30-2021 08:31-0400 Body temperature 98.6 [degF] BEHAVIORAL INSTRUCTOR-C Talon Ray BEHAVIORAL INSTRUCTOR Work Phone: [facility] Work Phone: 04-30-2021 08:31-0400 Diastolic blood pressure 68 mm[Hg] BEHAVIORAL INSTRUCTOR-C Talon Ray BEHAVIORAL INSTRUCTOR Work Phone: [facility] Work Phone: 04-30-2021 08:31-0400 Heart rate 100 /min BEHAVIORAL INSTRUCTOR-C Talon Ray BEHAVIORAL INSTRUCTOR Work Phone: [facility] Work Phone: 04-30-2021 08:31-0400 Respiratory rate 14 /min BEHAVIORAL INSTRUCTOR-C Talon Ray BEHAVIORAL INSTRUCTOR Work Phone: [facility] Work Phone: 04-30-2021 08:31-0400 SaO2% (BldA) [Mass fraction] 98 % BEHAVIORAL INSTRUCTOR-C Talon Ray BEHAVIORAL INSTRUCTOR Work Phone: [facility] Work Phone: 04-30-2021 08:31-0400 Systolic blood pressure 110 mm[Hg] LIZZY Ray Work Phone: [facility] Work Phone: 09-29-2016 13:22-0400 BMI (Body Mass Index) 19.57 kg/m2 Ashley Dutton NP [facility] 09-29-2016 13:22-0400 Body Temperature 98.3 [degF] Ashley Dutton BEHAVIORAL INSTRUCTOR [facility] Care 09-29-2016 13:22-0400 Body Temperature 98.29 [degF] Ashley Dutton BEHAVIORAL INSTRUCTOR [facility] 09-29-2016 13:22-0400 BP Diastolic 74 mm[Hg] Ashley Dutton BEHAVIORAL INSTRUCTOR [facility] Care 09-29-2016 13:22-0400 BP Systolic 108 mm[Hg] Ashley Dutton BEHAVIORAL INSTRUCTOR [facility] Care 09-29-2016 13:22-0400 Height 162.56 cm Ashley Dutton NP [facility] 09-29-2016 13:22-0400 Pulse (Heart Rate) 74 /min Ashley Dutton BEHAVIORAL INSTRUCTOR [facility] 09-29-2016 13:22-0400 Respiratory Rate 16 /min Ashley Dutton BEHAVIORAL INSTRUCTOR [facility] 09-29-2016 13:22-0400 Weight 51.71 kg Ashley Dutton NP [facility] 06-03-2016 15:37-0400 Heart rate 47 /min Ashely Dutton BEHAVIORAL INSTRUCTOR [facility] 06-03-2016 15:20-0400 BMI (Body Mass Index) 19.57 kg/m2 [facility] Work Phone: 06-03-2016 15:20-0400 BP Diastolic 68 mm[Hg] [facility] Work Phone: 06-03-2016 15:20-0400 BP Systolic 104 mm[Hg] [facility] Work Phone: 06-03-2016 15:20-0400 Pulse (Heart Rate) 64 /min [facility] Work Phone: 06-03-2016 15:20-0400 Respiratory Rate 16 /min [facility] Work Phone: 06-03-2016 15:20-0400 Weight 51.71 kg Shayla Benitez RN [facility] Work Phone: 03-25-2016 06:29-0500 Body Temperature 98.2 [degF] [facility] Work Phone: 03-25-2016 06:29-0500 BSA (Body Surface Area) 1.81 m2 [facility] Work Phone: 03-25-2016 06:29-0500 Pulse Oximetry 98 % Shayla Benitez RN [facility] Work Phone: 05-10-2012 08:56-0400 Heart rate 412 ms Ashley Dutton NP [facility] 05-10-2012 08:35-0400 Height 162.56 cm Shayla Benitez RN [facility] Work Phone: Encounters Encounter Date Encounter Type Care Provider Facility Start: 10-17-2024 End: 10-17-2024 ambulatory Zebulun Beam VSC Facility:[facility] Start: 09-14-2024 End: 09-14-2024 ambulatory Zebulun Beam VSC Facility:[facility] Start: 09-04-2024 End: 09-04-2024 ambulatory Maria Teresa Rik Facility:[facility] Start: 07-12-2024 End: 07-12-2024 ambulatory Maria Teresa Mousie Facility:[facility] Start: 07-09-2024 ambulatory Maria Teresa Rik Facility :[facility] Start: 06-20-2024 ambulatory Tara Gary Facility:[facility] Start: 06-20-2024 End: 06-20-2024 ambulatory Maria Teresa Mousie Facility:[facility] Start: 06-05-2024 End: 06-05-2024 ambulatory Maria Teresa Mousie Facility:[facility] Start: 06-01-2024 End: 06-01-2024 ambulatory Maria Teresa Rik Facility:[facility] Start: 05-10-2024 End: 05-10-2024 ambulatory Maria Teresa Mousie Facility:[facility] Start: 05-07-2024 ambulatory Nneka Humphreys Facilit y:[facility] Start: 04-26-2024 End: 04-26-2024 ambulatory Maria Teresa Mousie Facility:[facility] Start: 04-22-2024 End: 04-22-2024 ambulatory Maria Teresa Rik Facility:[facility] Start: 04-17-2024 End: 04-17-2024 ambulatory Maria Teresa Mousie Facility:[facility] Start: 04-17-2024 End: 04-17-2024 ambulatory Maria Teresa Rik Facility:[facility] Start: 03-22-2024 End: 03-22-2024 ambulatory Lita Ferullo Facility:[facility] Start: 03-22-2024 End: 03-22-2024 ambulatory Maria Teresa Mousie Facility:[facility] Start: 03-08-2024 End: 03-08-2024 ambulatory Segre Ellis Facility:[facility] Start: 01-27-2024 End: 01-27-2024 ambulatory Lita Ferullo Facility:[facility] Start: 01-11-2024 End: 01-11-2024 ambulatory Lita Ferullo Facility:[facility] Start: 12-16-2023 End: 12-16-2023 ambulatory Lita Ferullo Facility:[facility] Start: 12-12-2023 End: 12-12-2023 ambulatory Lita Ferullo Facility:[facility] Start: 12-12-2023 End: 12-12-2023 ambulatory Lita Ferullo Facility:[facility] Start: 11-30-2023 End: 12-01-2023 ambulatory Lita Ferullo Facility:[facility] Start: 03-19-2022 End: 03-19-2022 ambulatory BEHAVIORAL INSTRUCTOR-Chang Ray NP Work Phone: [facility] Work Phone: Start: 03-19-2022 End: 03-19-2022 Patient encounter procedure BEHAVIORAL INSTRUCTOR-C Talon Flor BEHAVIORAL INSTRUCTOR [facility] Start: 03-18-2022 End: 03-18-2022 ambulatory BEHAVIORAL INSTRUCTOR-C Talon Ray BEHAVIORAL INSTRUCTOR Work Phone: [facility] Work Phone: Start: 03-18-2022 End: 03-18-2022 Patient encounter procedure BEHAVIORAL INSTRUCTOR-C Talon Ray BEHAVIORAL INSTRUCTOR Work Phone: [facility] Start: 03-01-2022 End: 03-01-2022 Patient encounter procedure BEHAVIORAL INSTRUCTOR-C Talon Ray BEHAVIORAL INSTRUCTOR Work Phone: [facility] Start: 02-19-2022 End: 02-19-2022 Patient encounter procedure BEHAVIORAL INSTRUCTOR-C Talon Ray BEHAVIORAL INSTRUCTOR Work Phone: [facility] Start: 01-12-2022 End: 01-12-2022 ambulatory BEHAVIORAL INSTRUCTOR-C Talon Flor BEHAVIORAL INSTRUCTOR Work Phone: [facility] Work Phone: Start: 01-12-2022 End: 01-12-2022 Patient encounter procedure BEHAVIORAL INSTRUCTOR-C Talon Ray BEHAVIORAL INSTRUCTOR Work Phone: [facility] Start: 01-06-2022 Patient encounter status BEHAVIORAL INSTRUCTOR-C Talon Ray BEHAVIORAL INSTRUCTOR Work Phone: [facility] Start: 01-06-2022 End: 01-06-2022 Encounter for general adult medical examination without abnormal findings BEHAVIORAL INSTRUCTOR-C Talon Ray BEHAVIORAL INSTRUCTOR Work Phone: [facility] Internal Medicine Start: 01-06-2022 End: 01-06-2022 Patient encounter procedure BEHAVIORAL INSTRUCTOR-C Talon Ray BEHAVIORAL INSTRUCTOR Work Phone: [facility] Internal Medicine Start: 12-24-2021 Non-patient / Non-visit BEHAVIORAL INSTRUCTOR-C Talon Ray BEHAVIORAL INSTRUCTOR Work Phone: [facility] Start: 12-24-2021 End: 12-24-2021 ambulatory BEHAVIORAL INSTRUCTOR-C Talon Valenciader BEHAVIORAL INSTRUCTOR Work Phone: [facility] Work Phone: Start: 12-24-2021 End: 12-24-2021 Patient encounter procedure BEHAVIORAL INSTRUCTOR-C Talon Valenciader BEHAVIORAL INSTRUCTOR Work Phone: [facility] Start: 12-15-2021 End: 12-15-2021 ambulatory BEHAVIORAL INSTRUCTOR-C Talon Ray BEHAVIORAL INSTRUCTOR Work Phone: [facility] Work Phone: Start: 12-15-2021 End: 12-15-2021 Patient encounter procedure BEHAVIORAL INSTRUCTOR-C Talon Valenciader BEHAVIORAL INSTRUCTOR Work Phone: [facility] Start: 12-15-2021 End: 12-15-2021 Patient encounter procedure BEHAVIORAL INSTRUCTOR-C Talon Valenciader BEHAVIORAL INSTRUCTOR Work Phone: [facility] Start: 10-23-2021 End: 10-23-2021 ambulatory BEHAVIORAL INSTRUCTOR-C Talon Ray BEHAVIORAL INSTRUCTOR Work Phone: [facility] Work Phone: Start: 10-23-2021 End: 10-23-2021 Patient encounter procedure BEHAVIORAL INSTRUCTOR-C Talon Valenciader BEHAVIORAL INSTRUCTOR Work Phone: [facility] Start: 10-14-2021 End: 10-14-2021 ambulatory BEHAVIORAL INSTRUCTOR-C Talon Ray BEHAVIORAL INSTRUCTOR Work Phone: [facility] Work Phone: Start: 10-14-2021 End: 10-14-2021 Patient encounter procedure BEHAVIORAL INSTRUCTOR-C Talon Ray BEHAVIORAL INSTRUCTOR Work Phone: [facility], [facility] Start: 09-30-2021 Non-patient / Non-visit BEHAVIORAL INSTRUCTOR-C Talon Valenciader BEHAVIORAL INSTRUCTOR Work Phone: [facility] Start: 09-30-2021 End: 09-30-2021 ambulatory BEHAVIORAL INSTRUCTOR-C Talon Ray BEHAVIORAL INSTRUCTOR Work Phone: [facility] Work Phone: Start: 09-30-2021 End: 09-30-2021 Patient encounter procedure BEHAVIORAL INSTRUCTOR-C Talon Ray BEHAVIORAL INSTRUCTOR Work Phone: [facility] Start: 09-01-2021 End: 09-01-2021 Patient encounter procedure BEHAVIORAL INSTRUCTOR-C Talon Ray BEHAVIORAL INSTRUCTOR Work Phone: [facility] Gastroenterology Start: 09-01-2021 Non-patient / Non-visit BEHAVIORAL INSTRUCTOR-C Talon Ray BEHAVIORAL INSTRUCTOR Work Phone: [facility] Start: 08-19-2021 Non-patient / Non-visit BEHAVIORAL INSTRUCTOR-C Talon Ray BEHAVIORAL INSTRUCTOR Work Phone: [facility] Start: 08-19-2021 End: 08-19-2021 Admission to same day surgery center BEHAVIORAL INSTRUCTOR-C Talon Ray BEHAVIORAL INSTRUCTOR Work Phone: [facility]Endoscopy Start: 07-31-2021 End: 07-31-2021 Patient encounter procedure BEHAVIORAL INSTRUCTOR-C Talon Ray BEHAVIORAL INSTRUCTOR Work Phone: [facility] Gastroenterology Start: 07-30-2021 End: 07-30-2021 Patient encounter procedure BEHAVIORAL INSTRUCTOR-C Talon Ray BEHAVIORAL INSTRUCTOR Work Phone: [facility] Internal Medicine Start: 06-02-2021 End: 06-02-2021 Patient encounter procedure BEHAVIORAL INSTRUCTOR-C Talon Ray BEHAVIORAL INSTRUCTOR Work Phone: [facility] Gastroenterology Start: 05-26-2021 End: 05-26-2021 Patient encounter procedure BEHAVIORAL INSTRUCTOR-C Talon Valenciader BEHAVIORAL INSTRUCTOR Work Phone: [facility] Internal Medicine Start: 04-30-2021 End: 04-30-2021 Patient encounter procedure BEHAVIORAL INSTRUCTOR-C Talon Valenciader BEHAVIORAL INSTRUCTOR Work Phone: [facility] Procedures Date Procedure Procedure Detail Performing Clinician Start: 12-15-2021 Plain chest X-ray BEHAVIORAL INSTRUCTOR-C Talon Ray BEHAVIORAL INSTRUCTOR Work Phone: Start: 10-23-2021 Radiography of esophagus BEHAVIORAL INSTRUCTOR-C Talon Ray BEHAVIORAL INSTRUCTOR Work Phone: Start: 10-14-2021 Radionuclide gastric emptying study BEHAVIORAL INSTRUCTOR-C Talon Ray BEHAVIORAL INSTRUCTOR Work Phone: Start: 08-19-2021 Esophagogastroduodenoscopy BEHAVIORAL INSTRUCTOR-C Talon Diallo er BEHAVIORAL INSTRUCTOR Work Phone: Start: 09-29-2016 Gynecologic examination Routine gynecological examination Ashley Dutton BEHAVIORAL INSTRUCTOR Start: 09-29-2016 End: 09-29-2016 Documentation of current medications Ashley Dutton BEHAVIORAL INSTRUCTOR Start: 06-03-2016 End: 06-04-2016 *BMP Elpidio Oliveira MD Start: 06-03-2016 End: 07-01-2016 Cardiovascular stress test using treadmill Elpidio Oliveira MD Start: 06-03-2016 End: 07-01-2016 Echocardiography Elpidio Oliveira MD Start: 06-03-2016 End: 06-04-2016 Magnesium [Mass/volume] in Serum or Plasma Elpidio Oliveira MD Start: 06-03-2016 End: 06-04-2016 *BMP Elpidio Oliveira MD Start: 06-03-2016 End: 07-01-2016 Cardiovascular [...] MD Start: 05-10-2012 End: 05-10-2012 Electrocardiogram, complete lEpidio leahy MD Start: 05-10-2012 End: 05-10-2012 Follow Up Appt 6 weeks Elpidio Oliveira MD Start: 05-10-2012 End: 05-10-2012 MMM Elpidio Oliveira MD Plan of Treatment Date Care Activity Detail Author Start: 08-19-2021 Egd removal tumor polyp/other lesion snare tech EGD REMOVE LESION SNARE [facility] Work Phone: Start: 08-19-2021 Egd transoral biopsy single/multiple EGD BIOPSY SINGLE/MULTIPLE [facility] Work Phone: Start: 08-19-2021 Patient discharge [facility] Work Phone: Start: 06-06-2017 End: 06-06-2017 Appointment Appointment [facility] Work Phone: Start: 06-06-2017 End: 06-06-2017 Appointment [facility][1] Start: 12-03-2016 End: 12-03-2016 Bacteria genital culture *CUV - Culture, VAG/CX Comprehensive [facility][1] Start: 09-29-2016 End: 09-29-2016 Appointment Appointment [facility][1] Start: 07-01-2016 End: 07-01-2016 Ct thorax w/contrast material CT Chest with Contrast [facility] Work Phone: Start: 07-01-2016 End: 07-01-2016 Ct thorax w/dye CT Chest with Contrast [facility] Work Phone: Start: 06-03-2016 End: 06-04-2016 *BMP *BMP [facility] Work Phone: Start: 06-03-2016 End: 06-03-2016 Cardiovascular stress test using treadmill Treadmill stress test (no imaging) [facility] Work Phone: Start: 06-03-2016 End: 06-03-2016 Ecg routine ecg w/least 12 lds w/i&r EKG (In office) [facility] Work Phone: Start: 06-03-2016 End: 06-03-2016 Echocardiography Echocardiogram (complete) [facility] Work Phone: Start: 06-03-2016 End: 06-03-2016 Follow Up Appt 1 year Follow Up Appt 1 year [facility] Work Phone: Start: 06-03-2016 End: 06-04-2016 Magnesium *Magnesium [facility] Work Phone: Start: 06-03-2016 End: 06-03-2016 PFM PFM [facility] Work Phone: Start: 06-03-2016 End: 06-04-2016 *BMP *BMP [facility] Work Phone: Start: 06-03-2016 End: 06-03-2016 Cardiovascular stress test using treadmill Treadmill stress test (no imaging) [facility] Work Phone: Start: 06-03-2016 End: 06-03-2016 Echocardiography Echocardiogram (complete) [facility] Work Phone: Start: 06-03-2016 End: 06-03-2016 Electrocardiogram, complete EKG (In office) [facility] Work Phone: Start: 06-03-2016 End: 06-03-2016 Follow Up Appt 1 year Follow Up Appt 1 year [facility] Work Phone: Start: 06-03-2016 End: 06-04-2016 Magnesium *Magnesium [facility] Work Phone: Start: 06-03-2016 End: 06-03-2016 PFM PFM [facility] Work Phone: Start: 05-10-2012 End: 05-10-2012 *BMP *BMP [facility] Work Phone: Start: 05-10-2012 End: 05-10-2012 *CBC with Differential *CBC with Differential [facility] Work Phone: Start: 05-10-2012 End: 05-10-2012 *Hepatic Function Panel *Hepatic Function Panel [facility] Work Phone: Start: 05-10-2012 End: 05-10-2012 Chest x-ray X-Ray, Chest, PA & Lateral [facility] Work Phone: Start: 05-10-2012 End: 05-10-2012 Ecg routine ecg w/least 12 lds w/i&r EKG (In office) [facility] Work Phone: Start: 05-10-2012 End: 05-22-2012 Echocardiography Echocardiogram (complete) [facility] Work Phone: Start: 05-10-2012 End: 05-10-2012 Follow Up Appt 6 weeks Follow Up Appt 6 weeks [facility] Work Phone: Start: 05-10-2012 End: 05-10-2012 Lipid panel [AGGREGATE] *Lipid Profile [facility] Work Phone: Start: 05-10-2012 End: 05-10-2012 MMM MMM [facility] Work Phone: Start: 05-10-2012 End: 05-10-2012 Thyroid stimulating hormone (TSH) *TSH [facility] Work Phone: Start: 05-10-2012 End: 05-10-2012 Thyroxine (T4) *T4 (Total) [facility] Work Phone: Start: 05-10-2012 End: 05-10-2012 Xtrnl mobile cv telemetry w/i&report 30 days 30 Day Holter Monitor [facility] Work Phone: Start: 05-10-2012 End: 05-10-2012 *BMP *BMP [facility] Work Phone: Start: 05-10-2012 End: 05-10-2012 *CBC with Differential *CBC with Differential [facility] Work Phone: Start: 05-10-2012 End: 05-10-2012 *Hepatic Function Panel *Hepatic Function Panel [facility] Work Phone: Start: 05-10-2012 End: 05-10-2012 Chest x-ray X-Ray, Chest, PA & Lateral [facility] Work Phone: Start: 05-10-2012 End: 05-22-2012 Echocardiography Echocardiogram (complete) [facility] Work Phone: Start: 05-10-2012 End: 05-10-2012 Electrocardiogram, complete EKG (In office) [facility] Work Phone: Start: 05-10-2012 End: 05-10-2012 Follow Up Appt 6 weeks Follow Up Appt 6 weeks [facility] Work Phone: Start: 05-10-2012 End: 05-10-2012 Lipid panel [AGGREGATE] *Lipid Profile [facility] Work Phone: Start: 05-10-2012 End: 05-10-2012 MMM MMM [facility] Work Phone: Start: 05-10-2012 End: 05-10-2012 Remote 30 day ecg rev/report 30 Day Holter Monitor [facility] Work Phone: Start: 05-10-2012 End: 05-10-2012 Thyroid stimulating hormone (TSH) *TSH [facility] Work Phone: Start: 05-10-2012 End: 05-10-2012 Thyroxine (T4) *T4 (Total) [facility] Work Phone: Cardiovascular stres s testing [facility] Work Phone: Patient Education Desogestrel%2F Ethinyl%20 Estradiol%20(Oral)%20(Ta blet) [facility] Work Phone: Patient referral [facility] Work Phone: Radionuclide gastric emptying study [facility] Work Phone: Radionuclide imaging of liver and/or biliary tract using radioactive isotope [facility] Work Phone: [facility] Work Phone: [facility] Immunizations Immunization Date Immunization Notes Care Provider Fa iggy 11-27-2021 Covid Moderna Bivale nt Booster BEHAVIORAL INSTRUCTOR-C Talon Ray BEHAVIORAL INSTRUCTOR Work Phone: [facility] 11-13-2021 influenza, seasonal, injectable BEHAVIORAL INSTRUCTOR-C Talon Ray BEHAVIORAL INSTRUCTOR Work Phone: [facility] 12-17-2020 Covid (Moderna) BEHAVIORAL INSTRUCTOR-C Talon Yo sruthi BEHAVIORAL INSTRUCTOR Work Phone: [facility] 11-11-2020 influenza, seasonal, injectable BEHAVIORAL INSTRUCTOR-C Talon Ray BEHAVIORAL INSTRUCTOR Work Phone: [facility] 05-12-2020 Covid (Moderna) BEHAVIORAL INSTRUCTOR-C Talon Yo sruthi BEHAVIORAL INSTRUCTOR Work Phone: [facility] 04-14-2020 Covid (Moderna) BEHAVIORAL INSTRUCTOR-C Talon Yo sruthi BEHAVIORAL INSTRUCTOR Work Phone: [facility] 11-07-2019 influenza, injectable,quadrivalent , preservative free, restaurant cook-C Talon Ray BEHAVIORAL INSTRUCTOR Work Phone: [facility] 12-05-2018 influenza, seasonal, injectable BEHAVIORAL INSTRUCTOR-C Talon Ray BEHAVIORAL INSTRUCTOR Work Phone: [facility] 11-11-2017 influenza, seasonal, injectable BEHAVIORAL INSTRUCTOR-C Talon Ray BEHAVIORAL INSTRUCTOR Work Phone: [facility] 11-10-2016 influenza, seasonal, injectable BEHAVIORAL INSTRUCTOR-C Talon Ray BEHAVIORAL INSTRUCTOR Work Phone: [facility] Payers Date Payer Category Payer Unknown [id number] 2023 Self-pay [id number] 2020 Private Health Insurance [id number] 2016 Unknown [id number] Private Health Insurance [id number] Unknown [id number] Unknown [id number] 2.16.8 [id number] Unknown [id number] 2.16.8 [id number] Unknown [id number] 2.16.8 [id number] Unknown [id number] 2.16.8 [id number] Unknown [id number] 2.16.8 40.1.293765.3.579.2.462 Unknown [id number] 2.16.8 40.1.796324.3.579.2.462 Unknown [id number] 2.16.8 40.1.911943.3.579.2.462 Unknown [id number] 2.16.8 40.1.349817.3.579.2.462 Unknown [id number] 2.16.8 40.1.141435.3.579.2.462 Unknown [id number] 2.16.8 40.1.341308.3.579.2.462 Unknown [id number] 2.16.8 40.1.683041.3.579.2.462 Unknown [id number] 2.16.8 40.1.546142.3.579.2.462 Unknown [id number] 2.16.8 40.1.998093.3.579.2.462 Unknown [id number] 2.16.8 40.1.808315.3.579.2.462 Unknown [id number] 2.16.8 40.1.577726.3.579.2.462 Unknown [id number] 2.16.8 40.1.898348.3.579.2.462 Unknown [id number] 2.16.8 40.1.042093.3.579.2.462 Unknown [id number] 2.16.8 40.1.371516.3.579.2.462 Unknown [id number] 2.16.8 40.1.551777.3.579.2.462 Unknown [id number] 2.16.8 40.1.586386.3.579.2.462 Unknown [id number] 2.16.8 40.1.594532.3.579.2.462 Unknown [id number] 2.16.8 40.1.554719.3.579.2.462 Unknown [id number] 2.16.8 40.1.571710.3.579.2.462 Unknown [id number] 2.16.8 40.1.813788.3.579.2.462 Unknown [id number] 2.16.8 40.1.585352.3.579.2.462 Unknown [id number] 2.16.8 40.1.195042.3.579.2.462 Unknown [id number] 2.16.8 [id number] Unknown [id number] 2.16.8 [id number] Social History Date Type Detail Facility [facility] Work Phone: Start: 08-13-2021 End: 03-01-2022 Tobacco smoking status NHIS Unknown if ever smoked [facility] Start: 05-15-2020 Non-smoker [facility] Start: 1990 Sex Assigned At Female W [facility] Medical Equipment Procedure Code Equipment Code Equipment [...] Result Facility 08-19-2021 Cognitive function Voice/Name;Touch/Jason benitez [facility] Work Phone: Evaluation note Note Date & Type Note Facility Evaluation note Diagnosis Onset Date Asthma with allergic rhiniti s with acute exacerbation chronic Asthma with allergic rhiniti s with acute exacerbation chronic GERD (gastroesophageal reflux disease) acute [facility] Work Phone: Evaluation note Note Date & Type Note Facility Evaluation note Diagnosis Onset Date Asthma with allergic rhiniti s with acute exacerbation chronic Asthma with allergic rhiniti s with acute exacerbation chronic GERD (gastroesophageal reflux disease) acute GERD (gastroesophageal reflux disease) acute Regurgitation of food acute [facility] Work Phone: Evaluation note Note Date & Type Note Facility Evaluation note Diagnosis Onset Date Asthma with allergic rhiniti s with acute exacerbation chronic GERD (gastroesophageal reflux disease) acute GERD (gastroesophageal reflux disease) acute Regurgitation of food acute [facility] Work Phone: Evaluation note Note Date & Type Note Facility Evaluation note Diagnosis Onset Date GERD (gastroesophageal reflux disease) acute Regurgitation of food acute Chest pain acute CARTER (dyspnea on exertion) ac [place] [employer] Bicuspid aortic valve chroni c Mitral valve prolapse chroni c [facility] Work Phone: Evaluation note Note Date & Type Note Facility Evaluation note Diagnosis Onset Date Chest pain acute CARTER (dyspnea on exertion) ac [place] [employer] Bicuspid aortic valve chroni c Mitral valve prolapse chroni c [facility] Work Phone: Evaluation note Note Date & Type Note Facility Evaluation note Diagnosis Onset Date Chest pain acute CARTER (dyspnea on exertion) ac [place] [employer] Bicuspid aortic valve chroni c Mitral valve prolapse chroni c Encounter for preventative a dult health care examination chronic Restless leg syndrome chroni c [facility] Work Phone: Evaluation note Note Date & Type Note Facility Evaluation note Diagnosis Onset Date Chest pain acute CARTER (dyspnea on exertion) ac [place] [employer] Bicuspid aortic valve chroni c Mitral valve prolapse chroni c Encounter for preventative a dult health care examination chronic Restless leg syndrome chroni c Anxiety acute [facility] Work Phone: Chief Complaint and Reason for [...] No August 13, 2021 2:58pm Power of Guard Chief No August 13 2 2:58pm Advance Directive Response Recorded Date/ Time Living Will No August 13, 2021 1:58pm Power of Guard Chief No August 13 2 1:58pm Advance Directive Response Recorded Date/ Time Living Will No February 19 3 5:13pm Power of Guard Chief No February 19 023 5:13pm Summary Purpose Additional Source Comments Care Teams (unrecognized sec tion and content) Team Status: Active Member Role Status Dates Dr. Manas Shaw MD Family Provider Active Talon Ray BEHAVIORAL INSTRUCTOR, BEHAVIORAL INSTRUCTOR-C Primary Care Provider Active Team Status: Inactive Member Role Status Dates Talon Ray BEHAVIORAL INSTRUCTOR, BEHAVIORAL INSTRUCTOR-C Primary Care Provide r, Attending Provider, Referring Provider Active Team Status: Inactive Member Role Status Dates Talon Ray BEHAVIORAL INSTRUCTOR, BEHAVIORAL INSTRUCTOR-C Primary Care Provider, Referring P rovider Active Shayla Hernandez PA, PA Attending Provider Active Team Status: Active Member Role Status Dates Talon Ray BEHAVIORAL INSTRUCTOR, BEHAVIORAL INSTRUCTOR-C Primary Care Provider Active Dr. Elpidio Oliveira MD Attending Provider Active Team Status: Inactive Member Role Status Dates Talon Ray BEHAVIORAL INSTRUCTOR, BEHAVIORAL INSTRUCTOR-C Primary Care Provider, Referring P rovider Active Cong MORENO, PA Attending Provider Active Team Status: Inactive Member Role Status Dates Talon Ray BEHAVIORAL INSTRUCTOR, BEHAVIORAL INSTRUCTOR-C Primary Care Provider, Referring P rovider Active Dr. Snow Arenas MD Attending Provider Active Team Status: Inactive Member Role Status Dates Talon Ray BEHAVIORAL INSTRUCTOR, BEHAVIORAL INSTRUCTOR-C Primary Care Provider Active Shayla Hernandez PA, PA Attending Provider, Referr ing Provider Active Team Status: Inactive Member Role Status Dates Talon Ray BEHAVIORAL INSTRUCTOR, BEHAVIORAL INSTRUCTOR-C Primary Care Provider Active Shayla Hernandez PA, PA Attending Provider Active Team Status: Active Member Role Status Dates Talon Ray NP, BEHAVIORAL INSTRUCTOR-C Primary Care Provide r, Attending Provider, Referring Provider Active INFORMATION SOURCE (unrecogn ized section and content) DATE CREATED AUTHOR 10/22/2024 [facility] FOR RECORDS PERTAINING TO PATIENTS WHO ARE [...] BE BASED ON THE PRIMARY CLINICAL RECORDS. [employer] provides no warranty or guarantee of the accuracy or completeness of information in this document.
== END | disposition home or self-care (01) ==
PROVIDERS: Visit Provider Obstetrics & Gynecology
DX: Z13.1 Encounter for screening for diabetes mellitus (principal)
CPT/HCPCS: 36415; 83036